=== PATIENT | female | born 1940 | race Caucasian/White ===

== ENCOUNTER 2022-12-02 12:56 | Emergency (ER) | payer OTHER ==
[2022-12-02 13:56] LABS: Absolute Lymphocytes (CBC) 0.6 K/uL (0.7-4.9); Hematocrit 41.6 % (36.0-45.0); Lymphocytes % 13.1 % (15.3-44.8); MCV 90.2 fL (80-100); MPV 8.4 fL (7.6-11.3)
[2022-12-02 14:04] LABS: Protime INR 1.01
[2022-12-02] MEDS ORDERED: Ringers Lactate 1,000 ML IV ONE (14:04)
[2022-12-02 14:14] LABS: Albumin 3.3 g/dL (3.4-5.0); Bilirubin Direct 0.2 mg/dL (0-0.2); Bilirubin Total 0.7 mg/dL (0.2-1.0); Potassium 3.5 mmol/L (3.5-5.1); Protein, Total 6.6 g/dL (6.4-8.2); Troponin High Sensitivity 13.2 pg/mL (<58.9)
--- NOTE | 2022-12-02 14:15 | RAD REPORT ---
EXAM DESCRIPTION: RAD - Chest Single View - 12/02/2022 2:05 pm CLINICAL HISTORY: sob, cough Chest pain. COMPARISON: CHEST SINGLE VIEW dated 09/13/2015; CHEST PA AND LAT 2 VIEW dated 09/12/2015; CHEST SING LE VIEW dated 09/11/2015; CHEST SINGLE VIEW dated 09/04/2015 FINDINGS: Portable technique limits examination quality. Right hemidiaphragm is elevated. Interstitial markings are prominent bilaterally. The heart is normal in size. No displaced fractures. IMPRESSION: Findings would favor a viral bronchitis/ interstitial infection.
--- NOTE | 2022-12-02 14:51 | RAD REPORT ---
EXAM DESCRIPTION: CT - Chest For Pe Angio - 12/02/2022 2:40 pm CLINICAL HISTORY: Chest pain. SOB COMPARISON: CTANGIO CHEST FOR PE dated 09/12/2015 TECHNIQUE: CT angiogram of the pulmonary arteries was performed with MIP. All CT scans are performed using dose optimization technique as appropriate and may include automated exposure control or mA/KV adjustment according to patient size. FINDINGS: Small pulmonary emboli are seen left posterior segmental and subsegmental branches. Aorta opacification is suboptimal for assessment. Mild COPD. No significant pericardial or pleural fluid. No concerning bony finding. IMPRESSION: Small pulmonary emboli are seen posterior left segmental and subsegmental branches. Mild COPD.
--- NOTE | 2022-12-02 14:55 | RAD REPORT ---
EXAM DESCRIPTION: CTAbdomen Pelvis W Contrast - 12/02/2022 2:40 pm CLINICAL HISTORY: Abdominal pain. ABD PAIN COMPARISON: Abdomen Pelvis W Contrast dated 05/22/2020; Abdomen Pelvis W Contrast dated 02/14/2019 ; Abdomen Pelvis W Contrast dated 03/03/2018; Abdomen Pelvis W Contrast dated 03/10/2017 TECHNIQUE: Biphasic CT imaging of the abdomen and pelvis was performed with 100 ml non-ionic IV cont rast. All CT scans are performed using dose optimization technique as appropriate and may include automated exposure control or mA/KV adjustment according to patient size. FINDINGS: The lung bases are mildly emphysematous but clear. Mild fatty liver. Small cyst anterior right lobe liver. The spleen, pancreas, adrenal glands kidneys are within normal limits. Cholelithiasis. Large fat and bowel containing ventral hernia. No bowel obstruction. 4.1 cm infrarenal abdominal aor tic aneurysm. No evidence of significant lymphadenopathy. Mild right rectus sheath fluid is seen terrie uring up to 19 mm in thickness. No suspicious bony findings. IMPRESSION: Large ventral hernia without bowel obstruction. Cholelithiasis. 4.1 cm infrarenal abdominal aortic aneurysm.
[2022-12-02] MEDS ORDERED: CEFTRIAXONE 1000 MG/VIAL ONE (16:02)
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
[2022-12-02 18:04] VITALS: TEMP 98.1
[2022-12-02 18:08] VITALS: BP 157/79; O2SAT 100
== END 2022-12-02 17:41 | disposition home or self-care (01) ==
LOC: ER 12:56
DX: I26.99 Other pulmonary embolism without acute cor pulmonale (principal); R19.7 Diarrhea, unspecified; I10 Essential (primary) hypertension; I48.91 Unspecified atrial fibrillation; Z85.038 Personal history of other malignant neoplasm of large intestine
CPT/HCPCS: 85025; 80048; 36415; 83735; 85610; 80076; 84484; 83880; 71275; 74177; 71045; Q9967; J7120; 93005

== ENCOUNTER 2023-03-29 11:47 | Emergency (ER) | payer OTHER ==
[2023-03-29] MEDS ORDERED: SMZ./TMP. 800/160 MG TABLET ONE (13:25)
[2023-03-29] MEDS ORDERED: HYDROCODONE/APAP 5/325 MG TAB ONE (13:25)
[2023-03-29] MEDS ORDERED: CEPHALEXIN 250 MG CAP ONE (13:25)
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
[2023-03-29 15:11] VITALS: TEMP 98.7; O2SAT 100
[2023-03-29 15:12] VITALS: BP 130/72
== END 2023-03-29 15:06 | disposition home or self-care (01) ==
LOC: ER 11:47
DX: L03.114 Cellulitis of left upper limb (principal); I10 Essential (primary) hypertension; I48.91 Unspecified atrial fibrillation; Z79.01 Long term (current) use of anticoagulants; Z88.1 Allergy status to other antibiotic agents
CPT/HCPCS: 99283

== ENCOUNTER 2024-01-07 19:34 | Emergency (ER) | payer OTHER ==
[2024-01-07] MEDS ORDERED: MORPHINE 4 MG/ML SYR ONE ×3 (20:18→23:41)
[2024-01-07] MEDS ORDERED: ONDANSETRON 4 MG/2 ML VIAL ONE ×2 (20:18→23:41)
[2024-01-07] MEDS ORDERED: NA CHLORIDE 0.9% 500 ML ONE (20:19)
[2024-01-07 20:23] LABS: Absolute Basophils 0.1 K/uL (0-0.5); Absolute Eosinophils 0.1 K/uL (0-0.5); Absolute Lymphocytes (CBC) 1.1 K/uL (0.7-4.9); Absolute Monocytes 0.6 K/uL (0.1-1.3); Basophils % 0.7 % (0-1.3); Eosinophils % 1.1 % (0-4.4); Hematocrit 40.7 % (36.0-45.0); Hemoglobin 14.1 g/dL (12.0-15.0); Lymphocytes % 12.3 % (15.3-44.8); MCH 31.5 pg (27.0-35.0); MCHC 34.6 g/dL (32.0-36.0); MCV 91.3 fL (80-100); MPV 8.5 fL (7.6-11.3); Monocytes % 6.5 % (3.3-12.3); Neutrophils % 79.4 % (41.7-73.7); Nucleated Red Blood Cells % 0.1 % (0-0); Platelets 283 thou/uL (152-406); RBC Red Blood Cell Count 4.46 M/uL (3.86-4.86); Red Cell Distribution Width 13.3 % (12.1-15.2)
[2024-01-07 20:31] LABS: Specific Gravity 1.011 (1.005-1.030); Sqamous Epithelial <5 /HPF (None Seen); Urine Bacteria None Seen /HPF (<20); Urine Bilirubin NEGATIVE (Negative); Urine Blood Negative (Negative); Urine Clarity Clear (Clear); Urine Color Colorless (Yellow); Urine Crystals Unidentified Few /HPF (None Seen); Urine Culture Reflex Order NOT NEEDED; Urine Glucose NEGATIVE (Negative); Urine Ketones NEGATIVE (Negative); Urine Microscopic Reflex YN ORDER UMIC; Urine Mucus Slight /HPF (None Seen); Urine Nitrite NEGATIVE (Negative); Urine Protein NEGATIVE (Negative); Urine RBC <5 /HPF (None Seen); Urine Urobilinogen Normal (Normal); Urine WBC <5 /HPF (<5)
[2024-01-07 20:41] LABS: Albumin 3.7 g/dL (3.4-5.0); Anion Gap 10.6 mEq/L (5.0-15.0); Bilirubin Total 0.7 mg/dL (0.2-1.0); Globulin 3.6 g/dL (2.3-3.5); Potassium 3.6 mEq/L (3.5-5.1); Protein, Total 7.3 g/dL (6.4-8.2)
--- NOTE | 2024-01-07 22:15 | RAD REPORT ---
EXAM DESCRIPTION: CT - Abdomen Pelvis W Contrast - 01/07/2024 9:31 pm CLINICAL HISTORY: ABD PAIN COMPARISON: Abdomen Pelvis W Contrast dated 12/02/2022; Abdomen Pelvis W Contrast dated 05/22/2020; Abdomen Pelvis W Contrast dated 02/14/2019; Abdomen Pelvis W Contrast dated 03/03/2018 TECHNIQUE: Thin cut axial CT imaging of the abdomen and pelvis was performed following intravenous a dministration of 95 mL Isovue 300. Multiplanar reformats were generated and reviewed. All CT scans are performed using dose optimization technique as appropriate and may include automated exposure control or mA/KV adjustment according to patient size. FINDINGS: No suspicious findings in the lung bases. The liver demonstrates a stable anterior right lobe subcapsular 7 mm hypoattenuating focus, possibly a cyst. Adrenal glands, spleen, and pancreas show no suspicious findings. Gallbladder demonstrates nu merous layering small gallstones. Symmetric renal function is seen with no hydronephrosis or suspicious renal mass. Dilated proximal small bowel loops with air-fluid levels. Small lung large bowel enters the wide neck ed ventral hernia sac, including some of the distended small bowel. A small loop of distended small b owel insinuates in the lower anterior abdominal wall right of midline, where previously a pocket of f luid was visualized, anterior to the rectus muscle body and possibly in between a component of the me sh and the transversalis fascia, see axial image 62 series 201. The transition point is at the level of the orifice of that pocket, on axial image 56 and coronal image 28. Nondistended small bowel dista l to this point. Sequelae of distal colectomy with colorectal anastomosis. No free air, free fluid or inflammatory stranding. No hernia, mass or bulky lymphadenopathy. The urinary bladder is without sig nificant finding. Stable right posterior pelvic ovoid 4 cm cystic collection, possibly of adnexal origin. 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 No suspicious bony findings. IMPRESSION: Sequelae of complete bowel obstruction, with focal transition point identified at the or ifice of a pocket of fluid that appears to be situated anterior to the right rectus muscle body and p ossibly and between a component of the hernia repair mesh and the transversalis fascia. Other findings as detailed above. The findings were communicated to Miriam Blas on 01/07/2024 at 22:07 hours.
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
[2024-01-08] MEDS ORDERED: NA CHLORIDE 0.9% 1,000 ML ONE (02:32)
[2024-01-08] MEDS ORDERED: FENTANYL CITR 100 MCG/2 ML ONE (02:32)
[2024-01-08] MEDS ORDERED: LORazepam 2 MG/ML VIAL ONE (03:44)
[2024-01-08] MEDS ORDERED: HYDROMORPHONE HCL 1 MG/ML INJ ONE (04:51)
[2024-01-08 05:39] VITALS: BP 112/72; TEMP 98; O2SAT 99
--- NOTE | 2024-01-08 19:09 | RAD REPORT ---
CLINICAL HISTORY: NG tube placement COMPARISON: None. TECHNIQUE: XR ABDOMEN 1 VIEW (KUB) 01/08/2024 3:04 AM CDT FINDINGS: Bowel gas pattern is nonspecific. There are no abnormal radiopaque foreign bodies or abnor mal calcifications. Osseous structures are grossly unremarkable. NG tube tip is in the stomach. IMPRESSION: NG tube tip in the stomach. Electronically signed by: Clive Crump MD 01/08/2024 03:51 AM CDT Due to temporary technical issues with the PACS/Fluency reporting system, reports are being signed by the in house radiologists without review as a courtesy to insure prompt reporting. The interpreting radiologist is fully responsible for the content of the report.
== END 2024-01-08 05:09 | disposition short-term general hospital (02) ==
LOC: ER 19:34
DX: K56.609 Unspecified intestinal obstruction, unspecified as to partial versus complete obstruction (principal); I48.91 Unspecified atrial fibrillation; I10 Essential (primary) hypertension; Z85.038 Personal history of other malignant neoplasm of large intestine; Z86.711 Personal history of pulmonary embolism; Z79.01 Long term (current) use of anticoagulants; Z79.899 Other long term (current) drug therapy; Z88.0 Allergy status to penicillin
CPT/HCPCS: 36415; 74018; 74177; 80053; 81001; 83690; 85025; 96361; 96374; 96375; 99285; J2405; J7040; Q9967

== ENCOUNTER 2024-02-24 05:02 | Inpatient (IN) | payer OTHER ==
[2024-02-24] MEDS ORDERED: ONDANSETRON 4 MG/2 ML VIAL ONE ×2 (05:28→10:13)
[2024-02-24] MEDS ORDERED: METOCLOPRAMIDE 10 MG/2mL INJ ONE (05:28)
[2024-02-24] MEDS ORDERED: MORPHINE 4 MG/ML SYR ONE (05:29)
[2024-02-24] MEDS ORDERED: NA CHLORIDE 0.9% 1,000 ML ONE (05:29)
[2024-02-24 05:39] LABS: Absolute Basophils 0.1 K/uL (0-0.5); Absolute Lymphocytes (CBC) 0.9 K/uL (0.7-4.9); Absolute Monocytes 0.3 K/uL (0.1-1.3); Absolute Neutrophil 9.6 K/uL (1.8-8.0); Basophils % 0.6 % (0-1.3); Eosinophils % 0.2 % (0-4.4); Hematocrit 43.8 % (36.0-45.0); Lymphocytes % 8.3 % (15.3-44.8); MCH 31.4 pg (27.0-35.0); MCHC 34.3 g/dL (32.0-36.0); MCV 91.4 fL (80-100); MPV 8.8 fL (7.6-11.3); Monocytes % 3.1 % (3.3-12.3); Neutrophils % 87.8 % (41.7-73.7); Nucleated Red Blood Cells % 0.1 % (0-0); Platelets 303 thou/uL (152-406); Red Cell Distribution Width 12.8 % (12.1-15.2)
[2024-02-24 05:49] LABS: PT Prothrombin Time 12.6 SECONDS (9.5-12.5); Protime INR 1.15
[2024-02-24 06:01] LABS: Albumin 3.9 g/dL (3.4-5.0); Anion Gap 10.3 mEq/L (5.0-15.0); Bilirubin Direct 0.1 mg/dL (0-0.2); Bilirubin Indirect, Calculated 0.5 mg/dL (0.2-0.8); Bilirubin Total 0.6 mg/dL (0.2-1.0); Globulin 3.8 g/dL (2.3-3.5); Potassium 3.3 mEq/L (3.5-5.1); Protein, Total 7.7 g/dL (6.4-8.2); Troponin High Sensitivity 7.1 pg/mL (<58.9)
[2024-02-24 07:58] LABS: Sqamous Epithelial None Seen /HPF (None Seen); Urine Bacteria None Seen /HPF (<20); Urine Bilirubin NEGATIVE (Negative); Urine Blood Negative (Negative); Urine Clarity Clear (Clear); Urine Color Colorless (Yellow); Urine Culture Reflex Order NOT NEEDED; Urine Glucose TRACE (Negative); Urine Ketones NEGATIVE (Negative); Urine Microscopic Reflex YN ORDER UMIC; Urine Nitrite NEGATIVE (Negative); Urine Protein NEGATIVE (Negative); Urine RBC <5 /HPF (None Seen); Urine Urobilinogen Normal (Normal); Urine WBC <5 /HPF (<5); Urine pH 6.5 (5.0-7.0)
[2024-02-24] MEDS ORDERED: FENTANYL CITR 100 MCG/2 ML ONE (08:06)
--- NOTE | 2024-02-24 08:07 | RAD REPORT ---
EXAM DESCRIPTION: CT - Chest Abdomen Pelvis W Cont - 02/24/2024 6:41 am CLINICAL HISTORY: Chest and abdomen pain. CHEST PAIN COMPARISON: <Comparisons> TECHNIQUE: Approximately 100 mL nonionic IV contrast was administered to the patient. All CT scans are performed using dose optimization technique as appropriate and may include automated exposure control or mA/KV adjustment according to patient size. FINDINGS: The lungs are mildly emphysematous but clear.No pleural or pericardial effusion.No intrath oracic adenopathy. Gallbladder appears distended and contains multiple stones. The liver contains small benign cyst. No intra or extrahepatic biliary tree dilatation. Small amount of fluid is seen surrounding the spleen. Pancreas, both adrenal glands kidneys are within normal limi ts. Benign right renal cyst 3.8 cm infrarenal abdominal aortic aneurysm. Large ventral hernia is present containing fat, fluid se veral loops of small bowel and colon. Fluid as well as small bowel loop is seen along the right anter ior abdominal wall fascia. Several dilated small bowel loops are seen in the left abdomen. No free in traperitoneal air is seen. No pathologic lymphadenopathy in the abdomen or pelvis. Moderate lumbar degenerative changes. IMPRESSION: Mildly dilated small bowel loops are present in the lower abdomen left aspect of the abd omen likely partial mechanical small-bowel obstruction.This is favored to be caused by complex ventra l hernia with related trapped fluid small bowel loop is seen in the right paramidline anterior abdomi nal wall fascia (image 151/[id number]). Gallbladder distension is noted with numerous gallstones present.
[2024-02-24 08:17] LABS: Blood Morphology Comment NOT SEEN (NOT SEEN); Platelet Estimate ADEQ; White Blood Cell Scan OK (OK)
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
[2024-02-24] MEDS: Ringers Lactate 1,000 ML IV SCH (10:58)
[2024-02-24] MEDS ORDERED: ONDANSETRON 4 MG/2 ML VIAL IV PRN (10:58)
--- NOTE | 2024-02-24 11:52 | RAD REPORT ---
EXAM DESCRIPTION: RAD - Abdomen 1 View (KUB) - 02/24/2024 11:41 am CLINICAL HISTORY: Placement of NGT/OGT. Post Insertion. Pain COMPARISON: Abdomen 1 View (KUB) dated 01/08/2024; Chest Abdomen Pelvis W Cont dated 02/24/2024 FINDINGS: Tip of the enteric tube is in the stomach. Several mildly prominent left lower quadrant sm all bowel loops noted.
[2024-02-24] MEDS: KCL 20 MEQ/100 mL IVPB 20 MEQ/100 ML BAG IV SCH ×2 (12:04→18:00)
[2024-02-24 12:29] VITALS: BMI 31.9
[2024-02-24] MEDS ORDERED: METOCLOPRAMIDE 10 MG/2mL INJ IV PRN (12:30)
[2024-02-24] MEDS: MORPHINE 4 MG/ML SYR IV PRN (12:45)
[2024-02-24] MEDS: KETOROLAC 30 MG/ML INJ IV PRN (18:27)
[2024-02-24] MEDS ORDERED: AMIODARONE HCL 450 MG in D5W 241 ML IV SCH (19:00)
[2024-02-24] MEDS: PIPER TAZO 3.375 GM in NA CHLORIDE 0.9% 100 ML IV ONE (19:34)
[2024-02-25] MEDS: PIPER TAZO 3.375 GM in NA CHLORIDE 0.9% 100 ML IV SCH (00:28)
[2024-02-25 10:02] LABS: Anion Gap 10.1 mEq/L (5.0-15.0); Magnesium 2.1 mg/dL (1.6-2.4); Potassium 4.1 mEq/L (3.5-5.1)
[2024-02-25 10:03] LABS: Absolute Lymphocytes (CBC) 1.5 K/uL (0.7-4.9); Absolute Neutrophil 11.9 K/uL (1.8-8.0); Basophils % 0.2 % (0-1.3); Eosinophils % 0.1 % (0-4.4); Hematocrit 36.2 % (36.0-45.0); Hemoglobin 12.1 g/dL (12.0-15.0); Lymphocytes % 10.2 % (15.3-44.8); MCH 30.6 pg (27.0-35.0); MCHC 33.3 g/dL (32.0-36.0); MCV 91.7 fL (80-100); MPV 9.1 fL (7.6-11.3); Monocytes % 6.9 % (3.3-12.3); Neutrophils % 82.6 % (41.7-73.7); Platelets 249 thou/uL (152-406); RBC Red Blood Cell Count 3.95 M/uL (3.86-4.86)
[2024-02-25] MEDS: FENTANYL CITR 100 MCG/2 ML IV PRN (11:51)
[2024-02-25] MEDS: MORPHINE 4 MG/ML SYR IV ONE ×2 (13:50→16:12)
--- NOTE | 2024-02-25 14:41 | EKG ---
Test Date: 2024-02-24 Test Time: 05:30:56 [employer] Psychologist: ANNA MEASUREMENT RESULTS: Intervals: Rate: 88 MN: 174 QRSD: 94 QT: 384 QTc: 464 [place]: P: 66 MN: 174 QRS: 93 T: 65 INTERPRETIVE STATEMENTS: Sinus rhythm with premature atrial complexes Rightward axis Borderline ECG Compared to ECG 12/02/2022 14:05:39 Atrial premature complex(es) now present Right-axis deviation now present Sinus bradycardia no longer present Myocardial infarct finding no longer present Electronically Signed On 02-25-24 14:38:13 CDT by Singh Crawford
[2024-02-25] MEDS: MORPHINE 2 MG/ML SYR IV ONE (15:50)
[2024-02-25] MEDS: ENOXAPARIN 40 MG/0.4 ML SQ SCH (17:00)
--- NOTE | 2024-02-25 19:18 | P.PN ---
Subjective Date of Service: 02/25/24 Chief Complaint: Small bowel obstruction admitted with a small bowel obstruction, NG tube to low intermittent, surgery for KUB ordered this FINDINGS: Tip of the enteric tube is in the stomach. Several mildly prominent left lower quadrant small bowel loops noted. Febrile yesterday, Zosyn added - Physical Exam General: Alert, In no apparent distress, Oriented x3, Obese HEENT: Atraumatic, Normocephalic Neck: Supple, JVD not distended Respiratory: Clear to auscultation bilaterally, Normal air movement Cardiovascular: No edema, Normal pulses Capillary refill: <2 Seconds Gastrointestinal: Hypoactive, Other (Obese, large abdominal hernia), Tenderness Musculoskeletal: No swelling, No contractures Integumentary: No breakdown, No significant lesion Neurological: Normal speech, Normal strength at 5/5 x4 extr <Violeta Faulkner - Last Filed: 02/25/24 12:02> Date of Service: 02/25/24 <Jason King - Last Filed: 02/25/24 22:22> Review of Systems 10-point ROS is otherwise unremarkable <Violeta Faulkner - Last Filed: 02/25/24 12:02> Physical Examination - Vital Signs Temperature: 98.1 F Blood Pressure: 112/57 Pulse: 82 Respirations: 15 Pulse Ox (%): 91 <Violeta Faulkner - Last Filed: 02/25/24 12:02> Assessment And Plan - Plan Assessment and Plan Assessment plan Other and unspecified ventral hernia with obstruction, without gangrene intractable abdominal pain, nausea vomiting surgery Dr. Ortiz to consult, n.p.o., NG tube to low intermittent IV fluids, as needed antiemetics, Reglan, as needed analgesia associated nausea vomiting worse over the last 24 hours. Reports history of abdominal hernia sees Dr. Ortiz. Vital signs stable BP 145 / 90; Pulse 93; Resp 18; Temp 97.8(O); Pulse Ox 99% on R/A; Weight 92.99 kg; cm10 EKG height 5 ft. 8 in. ; Pain 10/10; EKG 88 beats/min. Rhythm is regular, Normal Sinus Rhythm. Right axis deviation [place] interval is normal. QRS interval is normal. QT interval is normal. No Q waves. T waves are Normal. No ST changes noted. Clinical impression: No evidence of ischemia., Treated with IV fentanyl, morphine, normal saline, Reglan, Zosyn, and emergency room prior to admission. Leukocytosis unknown source Zosyn and UA negative for acute cystitis AAA abdominal hernia History of colon cancer History of colon rupture Chronic anticoagulation on Eliquis Hypertensive disorder Pulmonary Embolism Resume appropriate home meds Previously seen Dr Ursula Jones Full code DVT eliquis, lovenox Diet n.p.o. Disposition Home uses wheelchair, rolling walker, cane as needed Discharge Plan: Home Time Spent Managing PTS Care (In Minutes): 35 <Violeta Faulkner - Last Filed: 02/25/24 12:02> Date of Service: 02/25/24 Patient was seen and examined. Events of the last 24 hours have been noted. Spoke with with [facility] regarding patient's clinical picture after evaluating and examining the patient independently. continue with NG tube to intermittent suction. Continue with IV hydration. I performed a substantial part of the MDM during this patient's care today. I personally made or approved the documented management plan and acknowledge its risk of complications. I agree with the findings and documentation provided in the ERIK's notes. <Jason King - Last Filed: 02/25/24 22:22>
--- NOTE | 2024-02-25 22:30 | CON ---
Date of Consultation: 02/24/2024 History Of Present Illness: Mrs. Yates is an 83-year-old patient who comes to us with abdominal distension and small bowel obstruction. She is well known by the medical service. Apparently, the p atient comes on and off with bowel obstruction that resolved on its own. She has an extensive surger y. Everything started with apparently a surgery about 7 to 8 years ago and she said Dr. Salvador went there to take a look at some hernias and then after that found person to have a colon tumor that req uired resection and colostomy. Then after that, the patient was sent to a colorectal surgeon, who di d a laparotomy to do a node excision of that area. Then after that, she has a large hernia and she w as sent for abdominal wall reconstruction that as per the patient did not go as planned and developed dehiscence and the other hernia when they develop, it could not be fixed. She had the option to fix it. She was tired of surgeries. She is saying only she likely as since then and that is 5 to 7 years. On and off she has bowel obstruction. She knows when it is coming and then come to [facility]. She was eating good in the last few days. She just decided to go a little bit more on the edge and started eating hot dogs, more what she called a junky food and then developed this. She knows weeks for diet. She has good spirit. She is not in any distress at this moment. Abdomen mildly distended. She denies any dysuria, hematuria, hematochezia, melena. Denies any recen t traveling out of the country. Denies any family member sick at home. Past Medical History: Includes AAA; abdominal hernias; atrial fibrillation; colon cancer; colon rupt ure; hypertension; pulmonary embolism; small bowel obstructions, intermittent. Past Surgical History: As above. Once again, multiple intraabdominal laparotomies, reconstruction o f the abdomen with dehiscence and a hernia that could not be repaired as this is that what she claime d. Allergies: TO AMPICILLIN. Social History: She does not smoke. She does not drink alcohol. Review of Systems: No shortness of breath. No chest pain. No fever. She had some nausea last night, but today feels b davin with no nausea anymore. Physical Examination: General: The patient is awake and alert. HEENT: Pupils are equal and reactive. Anicteric. Neck: Supple. Chest: Clear. Abdomen: Soft and depressible. No guarding. No rebound. No peritoneal signs. Mildly distended. There is a large incisional ventral hernia. Partially reducible. Extremities: Good capillary refill. Imaging Data: CAT scan of the abdomen and pelvis interpreted by dilated small bowel loops present in the lower abdomen, less aspect of the abdomen, likely partial mechanical small bowel obstruction, complex hernia, right paramedial, anterior abdominal wall fascia. We will also mention to her that she has some gallstones, although no inflammation at this moment. Laboratory Data: Blood work shows a WBC count of 11, hemoglobin of 15, sodium is 133, BUN is 18. Assessment: This is an 83-year-old patient with extensive abdominal surgery. Apparently, [facility] and then after that during that process found to have colon cancer, did partia l resection, colostomy, then reversal of colostomy by Dr. Cabral in [place], initially was Dr. Salvador. Then, after that the patient developed some hernias, sent to [place] for abdominal wall reconstruct ion. She said after that there was a large surgery done, but then she said everything broke and she has a large hernia. The doctor explained to her the risk of fixing the hernia. When she heard the r isk and the doctor discussed that, they decided just to leave it alone, but then she has been sufferi ng since then with this large hernia that apparently has not fixed. On and off bowel obstruction, re solved on its own. She does not want any surgical intervention at this moment. We are going to put an NG tube. Continue a bowel rest. We advised about the diet. I advised also going back to the [facility] and see what alternative we have to fix the hernia in a tertiary center since just 1 day take her to an emergent surgery that the outcomes may not be the best we can expect. She understood that. She has no peritonitis at this moment. EVAN/RADHA Voice ID: [id number] Report ID: [id number]
[2024-02-26 08:12] LABS: Absolute Eosinophils 0.1 K/uL (0-0.5); Absolute Lymphocytes (CBC) 1.1 K/uL (0.7-4.9); Absolute Monocytes 0.8 K/uL (0.1-1.3); Absolute Neutrophil 7.2 K/uL (1.8-8.0); Basophils % 0.3 % (0-1.3); Eosinophils % 1.1 % (0-4.4); Hematocrit 35.2 % (36.0-45.0); Hemoglobin 12.4 g/dL (12.0-15.0); Lymphocytes % 12.4 % (15.3-44.8); MCH 31.9 pg (27.0-35.0); MCHC 35.2 g/dL (32.0-36.0); MCV 90.8 fL (80-100); MPV 8.6 fL (7.6-11.3); Monocytes % 8.9 % (3.3-12.3); Neutrophils % 77.3 % (41.7-73.7); Platelets 261 thou/uL (152-406); RBC Red Blood Cell Count 3.88 M/uL (3.86-4.86); Red Cell Distribution Width 13.1 % (12.1-15.2)
[2024-02-26 08:25] LABS: Anion Gap 10.1 mEq/L (5.0-15.0); Potassium 3.1 mEq/L (3.5-5.1)
--- NOTE | 2024-02-26 09:55 | P.PN ---
Subjective Date of Service: 02/27/24 Chief Complaint: Small bowel obstruction admitted with a small bowel obstruction, NG tube to low intermittent, surgery for KUB ordered this FINDINGS: Tip of the enteric tube is in the stomach. Several mildly prominent left lower quadrant small bowel loops noted. Febrile yesterday, Zosyn added Coffee-ground emesis and NG container will DC heparin, H&H stable Trend H&H, repeat KUB this morning to eval small bowel (improved) start cl liq diet today PT to eval to get patient out of bed, plan to advance diet today clear liquid - Physical Exam General: Alert, In no apparent distress, Oriented x3, Obese HEENT: Atraumatic, Normocephalic Neck: Supple, JVD not distended Respiratory: Clear to auscultation bilaterally, Normal air movement Cardiovascular: No edema, Normal pulses Capillary refill: <2 Seconds Gastrointestinal: Hypoactive, Other (Obese, large abdominal hernia), Tenderness Musculoskeletal: No swelling, No contractures Integumentary: No breakdown, No significant lesion Neurological: Normal speech, Normal strength at 5/5 x4 extr <Violeta Faulkner - Last Filed: 02/27/24 08:12> Date of Service: 02/26/24 <Jason King - Last Filed: 02/28/24 00:18> Review of Systems PER HPI <Violeta Faulkner - Last Filed: 02/27/24 08:12> Physical Examination - Vital Signs Temperature: 98.2 F Blood Pressure: 161/81 Pulse: 94 Respirations: 18 Pulse Ox (%): 95 <Violeta Faulkner - Last Filed: 02/27/24 08:12> Assessment And Plan - Plan Assessment and Plan Assessment plan Other and unspecified ventral hernia with obstruction, without gangrene improved intractable abdominal pain, nausea vomiting surgery Dr. Ortiz to consult, n.p.o., NG tube to low intermittent IV fluids, as needed antiemetics, Reglan, as needed analgesia associated nausea vomiting worse over the last 24 hours. Reports history of abdominal hernia sees Dr. Ortiz. Vital signs stable BP 145 / 90; Pulse 93; Resp 18; Temp 97.8(O); Pulse Ox 99% on R/A; Weight 92.99 kg; cm10 EKG height 5 ft. 8 in. ; Pain 10/10; EKG 88 beats/min. Rhythm is regular, Normal Sinus Rhythm. Right axis deviation [place] interval is normal. QRS interval is normal. QT interval is normal. No Q waves. T waves are Normal. No ST changes noted. Clinical impression: No evidence of ischemia., Treated with IV fentanyl, morphine, normal saline, Reglan, Zosyn, and emergency room prior to admission. KUB improved start cl liq diet today Coffee-ground emesis And NG container Will DC Lovenox Microcytic anemia Trend H&H 15.0->12.1, 12.4 Leukocytosis unknown source Zosyn and UA negative for acute cystitis AAA abdominal hernia History of colon cancer History of colon rupture Chronic anticoagulation on Eliquis Hypertensive disorder Pulmonary Embolism Resume appropriate home meds Previously seen Dr Ursula Jones Full code DVT eliquis, lovenox Diet n.p.o. Disposition Home uses wheelchair, rolling walker, cane as needed Discharge Plan: Home Discharge Plan: Home - Code Status/Comfort Care Code Status: Full Code Critical Care: No Time Spent Managing PTS Care (In Minutes): 35 <Violeta Faulkner - Last Filed: 02/27/24 08:12> Date of Service: 02/26/24 Patient was seen and examined. Events of the last 24 hours have been noted. Spoke with with [facility] regarding patient's clinical picture after evaluating and examining the patient independently. continue with NG tube to intermittent suction. Continue with IV hydration. I performed a substantial part of the MDM during this patient's care today. I personally made or approved the documented management plan and acknowledge its risk of complications. I agree with the findings and documentation provided in the ERIK's notes. <Jason King - Last Filed: 02/28/24 00:18>
--- NOTE | 2024-02-26 10:45 | RAD REPORT ---
EXAM DESCRIPTION: RAD - Abdomen 1 View (KUB) - 02/26/2024 10:27 am CLINICAL HISTORY: EVAL SBO COMPARISON: Abdomen 1 View (KUB) dated 02/24/2024; Abdomen 1 View (KUB) dated 01/08/2024; Chest Abdomen Pelvis W Cont dated 02/24/2024 FINDINGS: The borderline dilated small bowel loops in left lower quadrant are no longer identified. Some colonic gas is noted. No acute osseous abnormality.Visualized lungs are unremarkable.No abnormal calcifications. NG tube overlies the stomach. IMPRESSION: Improved. The borderline dilated left lower quadrant small bowel loops are no longer parmjit ntified. The bowel gas pattern is nonobstructive.
[2024-02-26] MEDS: METOPROLOL TARTRATE 5 MG/5 ML INJ IV STA ×2 (12:51→16:50)
[2024-02-26] MEDS ORDERED: KCL 20 MEQ/100 mL IVPB 20 MEQ/100 ML BAG IV SCH (13:00)
[2024-02-26] MEDS: KCL 20 MEQ/100 mL IVPB 20 MEQ/100 ML BAG IV SCH (13:00)
--- NOTE | 2024-02-26 14:00 | PN ---
Date of Progress Note: 02/26/2024 Diagnosis: Small bowel obstruction. Subjective: The patient is feeling better. Passing flatus. Abdomen is soft and depressible. She h ad some cramps in the abdomen then, but there is no guarding or rebound. NG tube is minimal. Objective: Vital Signs: Afebrile. Vital signs stable. Chest: Clear. Abdomen: Soft and depressible. Nice and flat. No guarding or rebound. No peritoneal signs. The p atsarthak had this gigantic large hernia, which they had been trying to be fixed in the past in [place], but they were unable to fix that. She has been living like that for the last 7 years. At this mome nt, there is no peritonitis. Extremities: Good capillary refill. Blood Work: The white count came back normal. Plan: We are going to clamp the NG tube. She wants to try sips of liquids. She has been through th is before and what we are going to do, just we are going to trying to do so, but keep the NG tube in place in case she gets nauseous, we can reconnect that again. I agree with that plan. She is very k nowledgeable and also she is trying to get out of bed and move around. She is trying to avoid any lamas rgery. EVAN/RADHA Voice ID: [id number] Report ID: [id number]
[2024-02-26] MEDS: NA CHLORIDE 0.9% 1,000 ML ONE (16:15)
[2024-02-26] MEDS: KETOROLAC 30 MG/ML INJ IV PRN (20:51)
[2024-02-26] MEDS: LORazepam 2 MG/ML VIAL IV PRN (20:51)
[2024-02-27 07:41] LABS: Absolute Eosinophils 0.2 K/uL (0-0.5); Absolute Lymphocytes (CBC) 1.1 K/uL (0.7-4.9); Absolute Monocytes 0.7 K/uL (0.1-1.3); Basophils % 0.6 % (0-1.3); Eosinophils % 3.4 % (0-4.4); Hematocrit 38.5 % (36.0-45.0); Hemoglobin 13.1 g/dL (12.0-15.0); Lymphocytes % 15.4 % (15.3-44.8); MCH 30.9 pg (27.0-35.0); MCHC 33.9 g/dL (32.0-36.0); MPV 7.9 fL (7.6-11.3); Monocytes % 10.4 % (3.3-12.3); Neutrophils % 70.2 % (41.7-73.7); Platelets 289 thou/uL (152-406); RBC Red Blood Cell Count 4.23 M/uL (3.86-4.86); Red Cell Distribution Width 12.6 % (12.1-15.2)
[2024-02-27 08:03] LABS: Anion Gap 5.2 mEq/L (5.0-15.0); Magnesium 2.3 mg/dL (1.6-2.4); Phosphorus 2.8 mg/dL (2.5-4.9); Potassium 3.2 mEq/L (3.5-5.1)
--- NOTE | 2024-02-27 08:14 | P.PN ---
Subjective Date of Service: 02/27/24 Chief Complaint: Small bowel obstruction admitted with a small bowel obstruction, NG tube to low intermittent, surgery for KUB ordered this FINDINGS: Tip of the enteric tube is in the stomach. Several mildly prominent left lower quadrant small bowel loops noted. Febrile yesterday, Zosyn added Coffee-ground emesis and NG container will DC heparin, H&H stable Trend H&H, repeat KUB this morning to eval small bowel (improved) start cl liq diet today PT to eval to get patient out of bed, plan to advance diet today clear liquid - Physical Exam General: Alert, In no apparent distress, Oriented x3, Obese HEENT: Atraumatic, Normocephalic Neck: Supple, JVD not distended Respiratory: Clear to auscultation bilaterally, Normal air movement Cardiovascular: No edema, Normal pulses Capillary refill: <2 Seconds Gastrointestinal: Hypoactive, Other (Obese, large abdominal hernia), Tenderness Musculoskeletal: No swelling, No contractures Integumentary: No breakdown, No significant lesion Neurological: Normal speech, Normal strength at 5/5 x4 extr <Violeta Faulkner - Last Filed: 02/27/24 08:14> Date of Service: 02/27/24 <Jason King - Last Filed: 02/28/24 00:19> Review of Systems Per HPI <Violeta Faulkner - Last Filed: 02/27/24 08:14> Physical Examination - Vital Signs Temperature: 98.2 F Blood Pressure: 161/81 Pulse: 94 Respirations: 18 Pulse Ox (%): 95 <Violeta Faulkner - Last Filed: 02/27/24 08:14> Assessment And Plan - Plan Assessment and Plan Assessment plan Other and unspecified ventral hernia with obstruction, without gangrene improved intractable abdominal pain, nausea vomiting surgery Dr. Ortiz to consult, n.p.o., NG tube to low intermittent IV fluids, as needed antiemetics, Reglan, as needed analgesia associated nausea vomiting worse over the last 24 hours. Reports history of abdominal hernia sees Dr. Ortiz. Vital signs stable BP 145 / 90; Pulse 93; Resp 18; Temp 97.8(O); Pulse Ox 99% on R/A; Weight 92.99 kg; cm10 EKG height 5 ft. 8 in. ; Pain 10/10; EKG 88 beats/min. Rhythm is regular, Normal Sinus Rhythm. Right axis deviation [place] interval is normal. QRS interval is normal. QT interval is normal. No Q waves. T waves are Normal. No ST changes noted. Clinical impression: No evidence of ischemia., Treated with IV fentanyl, morphine, normal saline, Reglan, Zosyn, and emergency room prior to admission. KUB improved start cl liq diet today Coffee-ground emesis And NG container Will DC Lovenox Microcytic anemia Trend H&H 15.0->12.1, 12.4 Leukocytosis unknown source Zosyn and UA negative for acute cystitis AAA abdominal hernia History of colon cancer History of colon rupture Chronic anticoagulation on Eliquis Hypertensive disorder Pulmonary Embolism Resume appropriate home meds Previously seen Dr Cabral, Dr Vergara Full code DVT eliquis, lovenox Diet n.p.o. Disposition Home uses wheelchair, rolling walker, cane as needed Discharge Plan: Home - Code Status/Comfort Care Code Status: Full Code Critical Care: No Time Spent Managing PTS Care (In Minutes): 35 <Violeta Faulkner - Last Filed: 02/27/24 08:14>
[2024-02-27] MEDS ORDERED: METOPROLOL TARTRATE 5 MG/5 ML INJ IV PRN (08:15)
[2024-02-27] MEDS: METOPROLOL TARTRATE 5 MG/5 ML INJ IV STA (08:22)
[2024-02-27] MEDS: NA CHLORIDE 0.9% 1,000 ML IV SCH (08:44)
[2024-02-27] MEDS: METOPROLOL TAR 25 MG TAB PO SCH (09:40)
[2024-02-27] MEDS: AMIODARONE HCL 200 MG TAB PO SCH (09:40)
[2024-02-27] MEDS: KCL 20 MEQ/100 mL IVPB 20 MEQ/100 ML BAG IV SCH (09:41)
--- NOTE | 2024-02-27 10:29 | RAD REPORT ---
EXAM DESCRIPTION: RAD - Abdomen W Erect - 02/27/2024 10:17 am CLINICAL HISTORY: Abdominal pain FINDINGS: Nasogastric tube within the stomach near the junction of fundus and body Free air is not seen beneath diaphragm Normal bowel gas pattern
[2024-02-27] MEDS: LACTULOSE 20 GM/30 ML UCUP PO SCH (11:57)
[2024-02-28 03:31] LABS: Absolute Basophils 0.1 K/uL (0-0.5); Absolute Eosinophils 0.4 K/uL (0-0.5); Absolute Lymphocytes (CBC) 1.3 K/uL (0.7-4.9); Absolute Monocytes 0.7 K/uL (0.1-1.3); Absolute Neutrophil 4.6 K/uL (1.8-8.0); Eosinophils % 5.6 % (0-4.4); Hematocrit 36.2 % (36.0-45.0); Hemoglobin 12.6 g/dL (12.0-15.0); Lymphocytes % 18.4 % (15.3-44.8); MCH 31.7 pg (27.0-35.0); MCV 90.7 fL (80-100); MPV 7.8 fL (7.6-11.3); Monocytes % 10.2 % (3.3-12.3); Neutrophils % 64.8 % (41.7-73.7); Nucleated Red Blood Cells % 0.1 % (0-0); Platelets 290 thou/uL (152-406); RBC Red Blood Cell Count 3.99 M/uL (3.86-4.86); Red Cell Distribution Width 12.9 % (12.1-15.2)
[2024-02-28 03:40] LABS: Anion Gap 8.8 mEq/L (5.0-15.0); Potassium 3.8 mEq/L (3.5-5.1)
[2024-02-28] MEDS: POTASSIUM CL SA 10 MEQ TAB PO ONE (09:00)
[2024-02-28] MEDS: POTASSIUM 25 MEQ EFFERV TAB PO ONE (10:55)
--- NOTE | 2024-02-28 13:53 | P.PN ---
Subjective Date of Service: 02/28/24 Chief Complaint: Small bowel obstruction Pt is resting comfortably in bed with NG tube in place. There is no output in the Wall suction container. Waiting for recommendation from Gen surgeon. No other complaints Review of Systems General: Unremarkable Eyes: Unremarkable ENT: Unremarkable Respiratory: Unremarkable Cardiovascular: Unremarkable Gastrointestinal: Unremarkable Genitourinary: Unremarkable Musculoskeletal: Unremarkable Integumentary: Unremarkable Neurological: Unremarkable Lymphatics: Unremarkable Physical Examination - Vital Signs Temperature: 98.1 F Blood Pressure: 131/84 Pulse: 96 Respirations: 16 Pulse Ox (%): 95 - Physical Exam General: Alert, In no apparent distress, Oriented x3, Obese HEENT: Atraumatic, Normocephalic, PERRLA, Other (NG tube in place) Neck: Supple, 2+ carotid pulse no bruit Respiratory: Clear to auscultation bilaterally, Normal air movement Cardiovascular: No edema, Normal pulses, Regular rate/rhythm, Normal S1 S2 Capillary refill: <2 Seconds Gastrointestinal: Normal bowel sounds, Soft and benign, Non-distended Musculoskeletal: No clubbing, No swelling Integumentary: No rashes, No breakdown, No significant lesion Neurological: Normal speech, Normal strength at 5/5 x4 extr, Normal tone, Sensation intact, Cranial nerves 3-12 intact Lymphatics: No axilla or inguinal lymphadenopathy Assessment And Plan - Plan Unspecified ventral hernia with obstruction, without gangrene: improved. NG tube is in place. Will remove the NG tube when cleared by the Gen surgeon. There is no output in the wall suction container. Intractable abdominal pain, nausea vomiting: improved. Will continue prn antiemetic. Coffee-ground emesis/microcytic anemia: Monitor H/H. hgb is 12.6. Leukocytosis unknown source. UA is negative for UTI. Will continue empiric zosyn. AAA / Abdominal hernia / History of colon cancer: Continue to follow up with Dr Cabral and Dr Vergara Hypertensive disorder: Continue home med Pulmonary Embolism: Hold Eliquis due to coffee ground emesis. GI ppx: protonix DVT ppx: Eliquis Code: Full Dispo: Pending hospital course.
[2024-02-28 23:29] VITALS: O2SAT 95
[2024-02-29 03:51] LABS: Absolute Basophils 0.1 K/uL (0-0.5); Absolute Eosinophils 0.4 K/uL (0-0.5); Absolute Lymphocytes (CBC) 1.7 K/uL (0.7-4.9); Absolute Monocytes 0.7 K/uL (0.1-1.3); Absolute Neutrophil 3.4 K/uL (1.8-8.0); Basophils % 0.9 % (0-1.3); Eosinophils % 6.9 % (0-4.4); Hematocrit 34.7 % (36.0-45.0); Lymphocytes % 27.6 % (15.3-44.8); MCH 31.3 pg (27.0-35.0); MCHC 34.6 g/dL (32.0-36.0); MCV 90.4 fL (80-100); MPV 8.1 fL (7.6-11.3); Monocytes % 10.4 % (3.3-12.3); Neutrophils % 54.2 % (41.7-73.7); Platelets 277 thou/uL (152-406); RBC Red Blood Cell Count 3.84 M/uL (3.86-4.86); Red Cell Distribution Width 12.5 % (12.1-15.2)
[2024-02-29 04:13] LABS: Anion Gap 7.6 mEq/L (5.0-15.0); Magnesium 2.1 mg/dL (1.6-2.4); Potassium 3.6 mEq/L (3.5-5.1)
[2024-02-29] MEDS: POTASSIUM 25 MEQ EFFERV TAB PO ONE (08:55)
--- NOTE | 2024-02-29 11:13 | P.PN ---
Subjective Date of Service: 02/29/24 Chief Complaint: Small bowel obstruction Pt is resting comfortably in bed. NG tube was removed on 01/29/24. Pt is tolerating CLD. Will advance to pureed diet. Will dc if able to tolerate pureed diet. No other complaints Review of Systems General: Unremarkable Eyes: Unremarkable ENT: Unremarkable Respiratory: Unremarkable Cardiovascular: Unremarkable Gastrointestinal: Unremarkable Genitourinary: Unremarkable Musculoskeletal: Unremarkable Integumentary: Unremarkable Neurological: Unremarkable Lymphatics: Unremarkable Physical Examination - Vital Signs Temperature: 98.1 F Blood Pressure: 141/64 Pulse: 68 Respirations: 17 Pulse Ox (%): 95 - Physical Exam General: Alert, In no apparent distress, Oriented x3 HEENT: Atraumatic, Normocephalic, PERRLA Neck: Supple, 2+ carotid pulse no bruit Respiratory: Clear to auscultation bilaterally, Normal air movement Cardiovascular: No edema, Normal pulses, Regular rate/rhythm, Normal S1 S2 Capillary refill: <2 Seconds Gastrointestinal: Normal bowel sounds, Soft and benign, Non-distended, Other (ventral hernia) Musculoskeletal: No clubbing, No swelling Integumentary: No rashes, No breakdown, No significant lesion Neurological: Normal speech, Normal strength at 5/5 x4 extr, Normal tone, Sensation intact, Cranial nerves 3-12 intact Lymphatics: No axilla or inguinal lymphadenopathy Assessment And Plan - Plan Unspecified ventral hernia with obstruction, without gangrene: improved. NG tube is out. Gen surgeon started CLD. Pt is tolerating CLD. Will advance to pureed diet. Will dc if she tolerates pureed diet. Intractable abdominal pain, nausea vomiting: improved. Will continue prn antiemetic. Coffee-ground emesis/microcytic anemia: Monitor H/H. hgb is 12.0. Leukocytosis unknown source. UA is negative for UTI. Will continue empiric zosyn. AAA / Abdominal hernia / History of colon cancer: Continue to follow up with Dr Cabral and Dr Vergara Hypertensive disorder: Continue home med Pulmonary Embolism: Hold Eliquis due to coffee ground emesis. GI ppx: protonix DVT ppx: Eliquis Code: Full Dispo: Pending hospital course. Will dc once able to tolerate pureed diet
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
[2024-02-29 16:00] VITALS: BP 143/72; TEMP 99.2
--- NOTE | 2024-02-29 16:47 | PN ---
Date of Progress Note: 02/29/2024 Reason For Service: Two problems, the patient has history of recurrent small bowel obstruction. The patient also has ventral hernia that was attempted at [facility] for reconstruction, but it did not go as planned and so she has a very large hernia in abdomen chronically for the last 7 years with on and off bowel obstructions. She decided at this time to change her diet. Ate some what she called junk food because she was celebrating with her and after that developed into bowel obstruction, i s improving. She is passing gas, having bowel movement. Abdomen soft and depressible. Nontender, n ondistended. No nausea, no vomiting. No fever. She is tolerating diet so far. Objective: Chest: Clear. Abdomen: Benign. No guarding or rebound. Extremities: Good capillary refill. Plan: Just advance diet to pureed diet, then she is going to come back to our office where we discus sed ways how to once again take a look at the hernia to see if we can repair electively be fore the bowel obstruction happens again and she may be having bowel obstruction in different places, diet is imperative to be watched and make sure that she visits her dentist and make sure she can ju[place] w properly. She feels great. If she tolerates diet, she wants to go home with the condition she has to come to my office to discuss how we can minimize these episodes in the future. EVAN/RADHA Voice ID: [id number] Report ID: [id number]
== END 2024-02-29 17:05 | disposition home or self-care (01) | DRG 395 ==
LOC: ER 05:02 → ERHOLD 09:29 → 4TH 10:00
PROVIDERS: ADMIT Hospitalist; ATTEND Hospitalist
PROC: 0DH67UZ Insertion of Feeding Device into Stomach, Via Natural or Artificial Opening (ICD-10-PCS; principal; 2024-02-24)
DX: K43.6 Other and unspecified ventral hernia with obstruction, without gangrene (principal); I10 Essential (primary) hypertension; I48.91 Unspecified atrial fibrillation; K21.9 Gastro-esophageal reflux disease without esophagitis; I71.40 Abdominal aortic aneurysm, without rupture, unspecified; D50.9 Iron deficiency anemia, unspecified; D72.829 Elevated white blood cell count, unspecified; Z98.51 Tubal ligation status; Z88.7 Allergy status to serum and vaccine; Z88.1 Allergy status to other antibiotic agents; Z88.2 Allergy status to sulfonamides; Z79.01 Long term (current) use of anticoagulants; Z86.711 Personal history of pulmonary embolism; Z79.899 Other long term (current) drug therapy; Z85.038 Personal history of other malignant neoplasm of large intestine
CPT/HCPCS: 36415; 71260; 74018; 74019; 74177; 80048; 80076; 81001; 83690; 83735; 83880; 84100; 84132; 84484; 85025; 85610; 93005; 96361; 96374; 96375; 97116; 97161; 97530; 99285; J1650; J2405; J2543; J2765; J3010; J3480; J7030; J7120; Q9967

== ENCOUNTER 2024-03-21 04:32 | Inpatient (IN) | payer OTHER ==
[2024-03-21] MEDS ORDERED: ONDANSETRON 4 MG/2 ML VIAL ONE ×3 (04:53→07:24)
[2024-03-21] MEDS ORDERED: MORPHINE 4 MG/ML SYR ONE ×2 (04:54→06:25)
[2024-03-21] MEDS ORDERED: NA CHLORIDE 0.9% 1,000 ML ONE ×2 (04:54→07:32)
[2024-03-21 04:55] LABS: Absolute Basophils 0.1 K/uL (0-0.5); Absolute Eosinophils 0.1 K/uL (0-0.5); Absolute Lymphocytes (CBC) 1.2 K/uL (0.7-4.9); Absolute Monocytes 0.4 K/uL (0.1-1.3); Absolute Neutrophil 6.7 K/uL (1.8-8.0); Basophils % 0.8 % (0-1.3); Eosinophils % 1.4 % (0-4.4); Hematocrit 41.6 % (36.0-45.0); Hemoglobin 13.8 g/dL (12.0-15.0); Lymphocytes % 13.7 % (15.3-44.8); MCH 30.7 pg (27.0-35.0); MCHC 33.2 g/dL (32.0-36.0); MCV 92.7 fL (80-100); Monocytes % 5.3 % (3.3-12.3); Neutrophils % 78.8 % (41.7-73.7); Platelets 273 thou/uL (152-406); RBC Red Blood Cell Count 4.49 M/uL (3.86-4.86); Red Cell Distribution Width 13.5 % (12.1-15.2)
[2024-03-21 05:25] LABS: Albumin 3.9 g/dL (3.4-5.0); Albumin/Globulin Ratio 1.1 (1.1-1.8); Anion Gap 11.7 mEq/L (5.0-15.0); Bilirubin Total 0.6 mg/dL (0.2-1.0); Globulin 3.6 g/dL (2.3-3.5); Potassium 3.7 mEq/L (3.5-5.1); Protein, Total 7.5 g/dL (6.4-8.2)
[2024-03-21 06:33] LABS: Specific Gravity 1.016 (1.005-1.030); Sqamous Epithelial None Seen /HPF (None Seen); Urine Bacteria None Seen /HPF (<20); Urine Bilirubin NEGATIVE (Negative); Urine Blood Negative (Negative); Urine Clarity Clear (Clear); Urine Color Colorless (Yellow); Urine Culture Reflex Order NOT NEEDED; Urine Glucose TRACE (Negative); Urine Ketones NEGATIVE (Negative); Urine Micro Reflex YN NO BILL MICROSCOPIC; Urine Mucus Slight /HPF (None Seen); Urine Nitrite NEGATIVE (Negative); Urine Protein NEGATIVE (Negative); Urine RBC None Seen /HPF (None Seen); Urine Urobilinogen Normal (Normal); Urine WBC <5 /HPF (<5); Urine pH 6.5 (5.0-7.0)
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
[2024-03-21] MEDS ORDERED: LIDOCAINE VISCOUS 2% 10ML ORAL SOLN ONE (07:24)
[2024-03-21] MEDS ORDERED: HYDROMORPHONE HCL 0.5 MG/0.5 ML INJ ONE (07:32)
[2024-03-21] MEDS ORDERED: SODIUM CHLORIDE 0.9% 10ML INJ IV PRN (07:37)
[2024-03-21] MEDS ORDERED: MORPHINE 2 MG/ML SYR IV PRN (07:37)
[2024-03-21] MEDS: ONDANSETRON 4 MG/2 ML VIAL IV PRN (07:45)
[2024-03-21] MEDS: HYDROMORPHONE HCL 0.5 MG/0.5 ML INJ IV PRN (07:45)
[2024-03-21] MEDS: NA CHLORIDE 0.9% 1,000 ML IV SCH (08:29)
[2024-03-21] MEDS ORDERED: NA CHLORIDE 0.9% 100 ML ONE (08:43)
[2024-03-21] MEDS ORDERED: PANTOPRAZOLE 40 MG INJ ONE (08:43)
[2024-03-21] MEDS ORDERED: METOCLOPRAMIDE 10 MG/2mL INJ ONE (08:43)
[2024-03-21] MEDS: METOCLOPRAMIDE 10 MG/2mL INJ IV SCH (09:00)
[2024-03-21] MEDS: PANTOPRAZOLE 40 MG INJ IVP SCH (09:00)
--- NOTE | 2024-03-21 09:05 | RAD REPORT ---
EXAM DESCRIPTION: RAD - Abdomen 1 View (KUB) - 03/21/2024 8:35 am CLINICAL HISTORY: s/p NG tube placement. COMPARISON: Abdomen 1 View (KUB) dated 02/26/2024; Abdomen 1 View (KUB) dated 02/24/2024; Abdomen 1 View (KUB) dated 01/08/2024 TECHNIQUE: Single AP view of the abdomen. FINDINGS: Enteric tube tip projects at the peripheral fundus of the stomach. Nonobstructive bowel ga s pattern within the included abdomen. No air-fluid levels, free air, or pneumatosis. No suspicious c alcifications. No significant bony abnormality. IMPRESSION: Satisfactory positioning of the enteric tube.
[2024-03-21] MEDS ORDERED: MORPHINE 2 MG/ML SYR ONE (09:49)
[2024-03-21] MEDS: MORPHINE 4 MG/ML SYR IV PRN (10:00)
--- NOTE | 2024-03-21 12:40 | RAD REPORT ---
EXAM DESCRIPTION: CT - Abdomen Pelvis W Contrast - 03/21/2024 6:34 am CLINICAL HISTORY: ABD PAIN COMPARISON: None Available. TECHNIQUE: CT of the abdomen and pelvis performed following IV administration of iodinated contras t. This exam was performed according to our departmental dose-optimization program, which includes au tomated exposure control, adjustment of the mA and/or kV according to patient size and/or use of iter ative reconstruction technique. FINDINGS: Lung Bases: The visualized lung bases are clear. Bones: No acute osseous abnormality identified. Abdomen: Liver: Hepatomegaly. Gallbladder: Prior cholecystectomy. Spleen, Pancreas, and Adrenal Glands: The spleen, pancreas, and adrenal glands are unremarkable. Kidneys: No hydronephrosis or obstructing calculus. Vasculature: The aorta and IVC have normal caliber and position. The portal vein is patent. The pro ximal visceral and renal arteries are patent. Stomach: Small hiatal hernia. Other: No free intraperitoneal air. No free fluid or lymphadenopathy. Pelvis: Bladder: Urinary bladder is unremarkable. Bowel: No dilated loops of large or small bowel. Wall thickening of the proximal small bowel. Appendix: Normal appendix. Pelvis: Uterus is not enlarged. IMPRESSION: 1. Wall thickening of the proximal small bowel. These findings could be seen with nons pecific enteritis. 2. Hepatomegaly. 3. Small hiatal hernia. Electronically signed by: Abhilash Borja DO 03/21/2024 04:27 AM CDT 4ZDM Due to temporary technical issues with the PACS/Fluency reporting system, reports are being signed by the in house radiologists without review as a courtesy to insure prompt reporting. The interpreting radiologist is fully responsible for the content of the report
[2024-03-21 13:06] VITALS: BMI 30.4
[2024-03-21] MEDS ORDERED: PHENOL 1.4% ORAL SPRAY 180ML MM PRN (20:57)
[2024-03-21 22:21] VITALS: O2SAT 93
[2024-03-21] MEDS: FUROSEMIDE 40 MG/4 ML VIAL IV ONE (23:40)
[2024-03-22 06:34] LABS: Absolute Eosinophils 0.2 K/uL (0-0.5); Absolute Lymphocytes (CBC) 1.1 K/uL (0.7-4.9); Absolute Monocytes 0.5 K/uL (0.1-1.3); Basophils % 0.7 % (0-1.3); Hematocrit 33.3 % (36.0-45.0); Hemoglobin 11.8 g/dL (12.0-15.0); Lymphocytes % 18.7 % (15.3-44.8); MCH 32.4 pg (27.0-35.0); MCHC 35.4 g/dL (32.0-36.0); MCV 91.7 fL (80-100); MPV 8.7 fL (7.6-11.3); Monocytes % 8.8 % (3.3-12.3); Neutrophils % 67.8 % (41.7-73.7); Nucleated Red Blood Cells % 0.1 % (0-0); Platelets 223 thou/uL (152-406); RBC Red Blood Cell Count 3.63 M/uL (3.86-4.86); Red Cell Distribution Width 13.6 % (12.1-15.2)
[2024-03-22 06:51] LABS: Anion Gap 7.2 mEq/L (5.0-15.0); Magnesium 1.9 mg/dL (1.6-2.4); Potassium 3.2 mEq/L (3.5-5.1)
--- NOTE | 2024-03-22 07:35 | RAD REPORT ---
EXAM DESCRIPTION: RAD - Abdomen 1 View (KUB) - 03/22/2024 5:22 am CLINICAL HISTORY: eval bowel obstruction Pain COMPARISON: Abdomen 1 View (KUB) dated 03/21/2024; Abdomen 1 View (KUB) dated 02/26/2024; Abdomen 1 Vie w (KUB) dated 02/24/2024; Abdomen 1 View (KUB) dated 01/08/2024 FINDINGS: The enteric tube tip is in the stomach. The bowel gas pattern is nonobstructive. No eviden ce of free air.
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
[2024-03-22] MEDS: KCL 20 MEQ/100 mL IVPB 20 MEQ/100 ML BAG IV SCH ×2 (09:37→13:59)
[2024-03-22] MEDS: NA CHLORIDE 0.9% 500 ML ONE (14:00)
--- NOTE | 2024-03-22 16:08 | P.PN ---
Subjective Date of Service: 03/22/24 Chief Complaint: Bowel obstruction Subjective: Improving (Patient is passing gas and has no further abdominal pain.) Physical Examination - Vital Signs Temperature: 98.9 F Blood Pressure: 125/58 Pulse: 80 Respirations: 16 Pulse Ox (%): 93 - Physical Exam General: Alert, In no apparent distress, Cooperative Respiratory: Clear to auscultation bilaterally, Normal air movement Cardiovascular: Regular rate/rhythm Gastrointestinal: Soft and benign, Non-distended, No ascites, No tenderness, No masses, No rebound, No guarding, Other (Complex ventral abdominal hernia not reducible however benign examination completed today) Neurological: Normal speech Assessment And Plan - Current Problems (Diagnosis) (1) Abdominal pain Onset Date: 09/02/15 Current Visit: No Status: Acute Plan: -6-hour clamp trial for NG tube if patient tolerates without nausea vomiting pain distention and continues to pass gas can remove NG tube and start clear liquid diets this evening plan to advance tomorrow. -Continue medical management per primary team. -Ambulate with assist -SCDs.
--- NOTE | 2024-03-22 20:36 | CON ---
Date of Consultation: 03/21/2024 Brief History Of Present Illness: The patient is an 83-year-old female with past medical history of abdominal aortic aneurysm, abdominal hernia, atrial fibrillation, colon cancer with colonic rupture, status post resection, colostomy creation, colostomy takedown, multiple other complex abdominal surge sun for hernias, which were fixed primarily and which she believes to be biologic mesh in the past, who has had episodes of small bowel obstruction, treated before with nonoperative management, who now presents with recurrent small bowel obstruction. She has had worsening hernia after her last operat ion, was told she was not going to have surgery due to her other medical comorbidities and as such, h er hernia continues to enlarge, is worsening, and is associated with increased pain and enlargement o jerry time. She noted that she had a bowel movement yesterday just prior to the onset of some of her a bdominal pain, nausea, vomiting, and as such, she continues to pass gas at the time of her admission. She has no more nausea, vomiting after placement of NG tube. She has improved abdominal pain with medication and she states she feels somewhat better after being admitted to the hospital. Past Medical History: As described above includes GERD, gastritis, hypertension, chronic back pain, chest wall pain, cholelithiasis, colon cancer, status post resection, atrial fibrillation, pulmonary embolus, bowel obstructions in the past, hypertension. Past Surgical History: Includes previous , tubal ligation, tonsillectomy, adenoid surgery, foot surgery, sigmoid colon cancer resection, status post ileostomy creation, ileostomy takedown, her augustine repair in the past with recurrence shortly thereafter. Family History: Significant for pancreatic cancer in her father and mother had heart disease, hypert ension. Allergies: SHE IS ALLERGIC TO AMPICILLIN, SULFA, AND TETANUS TOXOID. Home Medications: Include Avapro, Lopressor, Norvasc, Eliquis, Prilosec, Ultram. Review of Systems: A 10 point review of systems other than HPI denies. Physical Examination: Vital Signs: Her blood pressure was 131/63, pulse 73, respiratory rate 16, temperature 97.4, SpO2 92 % on room air. General: She is awake, alert, and oriented. Psychiatric: Appropriate, conversive. HEENT: Normocephalic. Sclerae icteric. Mucous membranes are moist. Oropharynx clear. Neck: Supple without JVD. Chest: Normal expansion and excursion. Cardiovascular: Regular rate and rhythm. Pulmonary: Clear to auscultation bilaterally. Abdomen: Soft with only mild global tenderness to palpation. No rebound. No guarding. No focal pe ritonitis. She has a large ventral complex hernia with palpable small bowel within. This is not red ucible due to its size. However, attempts to reduce it elicit only the most minimal amount of pain o n significant attempted reduction. Extremities: No clubbing, cyanosis, or edema. Skin: Warm and dry. Laboratory Data: White blood cell count of 8.5, hemoglobin 13.8, hematocrit 41.6, platelet count was 273, lymphocytes 78%. Her sodium 141, potassium 3.7, chloride 109, carbon dioxide 24, BUN 19, creat inine 1.25, glucose 152. Calcium 10.0, AST 17, ALT 22, alkaline phosphatase is 80, lipase 43. UA es sentially negative with the exception of glucose in her urine. She had imaging performed, which incl uded CT of abdomen and pelvis, officially read as wall thickening in the proximal small bowel, findin gs could be seen with nonspecific enteritis, hepatomegaly and small hiatal hernia. Assessment And Plan: This is an 83-year-old female who comes in with a possible small bowel obstruct ion versus enteritis. 1.IV fluid hydration. 2.Antibiotic coverage. 3.Serial abdominal exams. 4.Medical management. 5.I explained the risks, benefits, and alternatives of nonoperative management versus operative amena gement. Will attempt nonoperative management initially. However, if operative management is require d, we will proceed with exploratory laparotomy, possible bowel resection, and indicated procedures. The patient displayed understanding of above stated plan and agreed to proceed as indicated. LEIA/RADHA Voice ID: [id number] Report ID: [id number]
[2024-03-23 06:09] LABS: Absolute Eosinophils 0.3 K/uL (0-0.5); Absolute Lymphocytes (CBC) 1.3 K/uL (0.7-4.9); Absolute Monocytes 0.6 K/uL (0.1-1.3); Absolute Neutrophil 3.1 K/uL (1.8-8.0); Basophils % 0.7 % (0-1.3); Eosinophils % 5.9 % (0-4.4); Hematocrit 33.6 % (36.0-45.0); Hemoglobin 11.5 g/dL (12.0-15.0); Lymphocytes % 24.2 % (15.3-44.8); MCH 31.8 pg (27.0-35.0); MCHC 34.2 g/dL (32.0-36.0); MCV 92.9 fL (80-100); Monocytes % 10.5 % (3.3-12.3); Neutrophils % 58.7 % (41.7-73.7); Platelets 203 thou/uL (152-406); RBC Red Blood Cell Count 3.62 M/uL (3.86-4.86); Red Cell Distribution Width 13.2 % (12.1-15.2)
[2024-03-23 06:22] LABS: Anion Gap 7.5 mEq/L (5.0-15.0); Magnesium 1.8 mg/dL (1.6-2.4); Potassium 3.5 mEq/L (3.5-5.1)
[2024-03-23] MEDS: POTASSIUM CL SA 10 MEQ TAB PO ONE (07:50)
[2024-03-23] MEDS: MAGNESIUM SULFATE 1 gm IVPB 1 GM/100 ML BAG IV ONE (07:50)
[2024-03-23] MEDS: ACETAMINOPHEN 325 MG TABLET PO PRN (09:49)
[2024-03-23 21:25] VITALS: BP 113/54; TEMP 97.9
--- NOTE | 2024-03-23 21:26 | P.DS ---
Admission Date: 03/21/24 Discharge Date: 03/23/24 Disposition: ROUTINE DISCHARGE Discharge Condition: GOOD Reason for Admission: Bowel obstruction Brief History of Present Illness: 83-year-old female with a past medical history AAA; abdominal hernia; Atrial fibrillation; colon cancer; Colon rupture; Colon rupture; Hypertensive disorder; Pulmonary Embolism; SMALL BOWEL OBSTRUCTION; presents to the emergency room with abdominal pain. She reports history of small bowel obstruction. She reports pain and nausea that started yesterday evening. She reports associated vomiting, poor p.o. intake, no reported fever, chest pain, shortness of breath, edema, dizziness. Plan to admit for bowel obstruction, generalized abdominal pain,Other and unspecified ventral hernia with obstruction, without gangrene ER evaluation BP 147 / 81; Pulse 86; Resp 17; Temp 98.4; Pulse Ox 98% ; Weight 90.72 kg; Height 5 ft. 8 in. ; Pain 10/10; : CT abdomen pelvis shows a complete small bowel obstruction with transition point within the large ventral hernia. Other chronic findings noted as well. NG tube ordered in the emergency room. Dr. Faust, general surgery who agrees to consult laboratory evaluation creatinine 1.25, BUN 19, estimated GFR is 43, abnormal kidney function likely secondary to nausea vomiting, CBC left shift 78.8 otherwise unremarkable General: Alert, Oriented x3, Mild distress HEENT: Atraumatic, Normocephalic Neck: 2+ carotid pulse no bruit, JVD not distended Respiratory: Clear to auscultation bilaterally, Normal air movement Cardiovascular: Normal pulses, Regular rate/rhythm Capillary refill: <2 Seconds Gastrointestinal: Other (Large abdominal hernia,), Tenderness (Generalized abdominal tenderness, no rebound tenderness) Musculoskeletal: No clubbing, No swelling Integumentary: No rashes, No breakdown Neurological: Normal speech, Normal strength at 5/5 x4 extr Hospital Course: Admitted with bowel obstruction, abdominal pain, Resolved with NGT, conservative treatment. She will need to follow up with surgery after discharge. History of large abdominal hernia, multiple bowel obstructions, abdominal surgeries. Follow up with Surgery after discharge Continue home medicines as previously prescribed GOAL: Clear understanding of disease process INSTRUCTIONS: Physician Discharge Instructions: -Follow-up with PCP in 1 to 2 weeks -Please call Dr. King at [phone] if any questions regarding hospital stay -Please call nursing station at [phone] if any nursing or medication questions -Return to the emergency room if symptoms worsen Diet: ADA, low sodium Activity: Fall precautions Vital Signs/Physical Exam: Temp Pulse Resp BP Pulse Ox 97.9 F 70 16 113/54 L 91 03/23/24 21:22 03/23/24 21:22 03/23/24 21:22 03/23/24 21:22 03/23/24 21:22 Laboratory Data at Discharge: WBC 5.30 thou/uL (4.3-10.9) 03/23/24 05:34 Hgb 11.5 g/dL (12.0-15.0) L 03/23/24 05:34 Hct 33.6 % (36.0-45.0) L 03/23/24 05:34 Plt Count 203 thou/uL (152-406) 03/23/24 05:34 Sodium 138 mEq/L (136-145) 03/23/24 05:34 Potassium 3.5 mEq/L (3.5-5.1) 03/23/24 05:34 BUN 7 mg/dL (7-18) 03/23/24 05:34 Creatinine 0.82 mg/dL (0.55-1.02) 03/23/24 05:34 Glucose 83 mg/dL (74-106) 03/23/24 05:34 Magnesium 1.8 mg/dL (1.6-2.4) 03/23/24 05:34 Total Bilirubin 0.6 mg/dL (0.2-1.0) 03/21/24 04:46 AST 17 U/L (15-37) 03/21/24 04:46 ALT 22 U/L (13-56) 03/21/24 04:46 Alkaline Phosphatase 80 U/L (45-117) 03/21/24 04:46 Lipase 43 U/L (13-75) 03/21/24 04:46 Home Medications: Irbesartan [Avapro] 1 tab PO BEDTIME 09/01/15 Amlodipine [Norvasc*] 1 tab PO DAILY 02/27/24 Apixaban [Eliquis] 1 tab PO BID 02/27/24 Tramadol HCl [Ultram] 1 tab PO QID PRN 02/27/24 Metoprolol Tartrate [Lopressor*] 25 mg PO TID 03/21/24 Levofloxacin [Levaquin] 500 mg PO DAILY #5 tab 03/23/24 Metoclopramide HCl [Reglan] 5 mg PO AC #30 tab 03/23/24 Metronidazole 500 mg PO Q12H #10 tab 03/23/24 New Medications: Levofloxacin [Levaquin] 500 mg PO DAILY #5 tab Metronidazole 500 mg PO Q12H #10 tab Metoclopramide HCl [Reglan] 5 mg PO AC #30 tab Physician Discharge Instructions: -DC IV and DC home -Follow-up with PCP in 1 to 2 weeks -Follow-up with Surgery, Dr. Faust, in 1 to 2 weeks -Please call Dr. King at [phone] if any questions regarding hospital stay -Please call nursing station at [phone] if any nursing or medication questions -Return to the emergency room if symptoms worsen Diet: soft; Activity: Fall precautions Followup: Keyana CORONEL,Lj Wright DO [Primary Care Provider] - Alvin Faust MD [ACTIVE - CAN ADMIT] - Time spent managing pt's care (in minutes): 55
== END 2024-03-23 17:53 | disposition home or self-care (01) | DRG 395 ==
LOC: ER 04:32 → ERHOLD 06:56 → 4TH 14:11
PROVIDERS: ADMIT Hospitalist; ATTEND Hospitalist
PROC: 0DH67UZ Insertion of Feeding Device into Stomach, Via Natural or Artificial Opening (ICD-10-PCS; principal; 2024-03-21)
DX: K43.6 Other and unspecified ventral hernia with obstruction, without gangrene (principal); I48.91 Unspecified atrial fibrillation; I10 Essential (primary) hypertension; G89.29 Other chronic pain; M54.9 Dorsalgia, unspecified; K21.9 Gastro-esophageal reflux disease without esophagitis; I71.40 Abdominal aortic aneurysm, without rupture, unspecified; Z93.2 Ileostomy status; Z88.2 Allergy status to sulfonamides; Z88.1 Allergy status to other antibiotic agents; Z79.01 Long term (current) use of anticoagulants; Z90.49 Acquired absence of other specified parts of digestive tract; Z28.310 Unvaccinated for COVID-19; Z86.711 Personal history of pulmonary embolism; Z79.899 Other long term (current) drug therapy; Z85.038 Personal history of other malignant neoplasm of large intestine
CPT/HCPCS: 36415; 74018; 74177; 80048; 80053; 81001; 83690; 83735; 85025; 96361; 96374; 96375; 99285; C9113; J1170; J2270; J2405; J2765; J3475; J3480; J7030; J7040; Q9967

== ENCOUNTER 2024-07-18 01:08 | Inpatient (IN) | payer OTHER ==
[2024-07-18] MEDS ORDERED: HYDROMORPHONE HCL 0.5 MG/0.5 ML INJ ONE ×2 (01:42→03:35)
[2024-07-18] MEDS ORDERED: ONDANSETRON 4 MG/2 ML VIAL ONE (02:23)
[2024-07-18 02:35] LABS: Absolute Monocytes 0.5 K/uL (0.1-1.3); Absolute Neutrophil 8.4 K/uL (1.8-8.0); Basophils % 0.4 % (0-1.3); Eosinophils % 0.5 % (0-4.4); Hemoglobin 14.8 g/dL (12.0-15.0); Lymphocytes % 10.1 % (15.3-44.8); MPV 9.2 fL (7.6-11.3); Monocytes % 4.7 % (3.3-12.3); Neutrophils % 84.3 % (41.7-73.7); Platelets 265 thou/uL (152-406); RBC Red Blood Cell Count 4.78 M/uL (3.86-4.86); Red Cell Distribution Width 13.7 % (12.1-15.2)
[2024-07-18 02:36] LABS: PT Prothrombin Time 13.5 SECONDS (9.4-12.5); Protime INR 1.21
[2024-07-18 03:04] LABS: Albumin 3.9 g/dL (3.4-5.0); Albumin/Globulin Ratio 1.1 (1.1-1.8); Anion Gap 10.8 mEq/L (5.0-15.0); Bilirubin Direct 0.2 mg/dL (0-0.2); Bilirubin Indirect, Calculated 0.4 mg/dL (0.2-0.8); Bilirubin Total 0.6 mg/dL (0.2-1.0); Globulin 3.5 g/dL (2.3-3.5); Magnesium 2.1 mg/dL (1.6-2.4); Potassium 3.8 mEq/L (3.5-5.1); Protein, Total 7.4 g/dL (6.4-8.2); Troponin High Sensitivity 6.5 pg/mL (<58.9)
[2024-07-18] MEDS ORDERED: PROMETHAZINE INJ 25 MG/ML AMP ONE (03:36)
--- NOTE | 2024-07-18 04:52 | RAD REPORT ---
EXAMINATION: CT ABDOMEN PELVIS WITH IV CONTRAST INDICATION: Female, 83 years old, ABD PAIN COMPARISON(S): 03/21/2024 (report only available at the time of dictation), 01/07/2024 TECHNIQUE: CT acquisition of the abdomen and pelvis following the administration of IV contrast. Karlos nal and sagittal reformatted images provided. This exam was performed according to departmental dose-optimization program which includes automated exposure control, adjustment of the mA and/or kV a ccording to patient size, and/or use of iterative reconstruction technique. FINDINGS: SUPPORTIVE DEVICES: None. LOWER CHEST: Mild basilar scarring/atelectasis. Unremarkable imaged heart. ABDOMEN AND PELVIS: Liver: Diffuse hypoenhancement relative to the spleen, with unchanged subcentimeter hypodensities in the right lobe and left lobe calcification. Gallbladder and bile ducts: Multiple layering stones within the distended gallbladder. No evidence of wall thickening or ductal dilation. Pancreas: Normal. Spleen: Multiple parenchymal calcifications. Adrenal glands: Normal. Kidneys and ureters: Striated left nephrogram. Unchanged right renal cyst. Unremarkable ureters. Bladder: Normal. Reproductive organs: Right ovarian cyst measures 3.7 cm, previously 4 cm. Otherwise unremarkable. GI tract/peritoneum/abdominal wall: Small hiatal hernia. Similar mild wall prominence of the stomach and duodenum. Distention of proximal to mid small bowel loops with multiple air-fluid levels, including within a complex ventral hernia with small bowel loops extending superficial to mesh materi al. Transition point of the exiting small bowel loop near the medial mesh margin (axial image 50/105, coronal image 56/139). Similar ascites within the hernia sac. The more distal small bowel and large bowel are decompressed. An uncomplicated loop of mid transverse colon also enters the large hernia sac superior to the small bowel. The appendix is normal. Vessels: Severe atherosclerosis with infrarenal 3.8 cm aortic aneurysm. Lymph nodes: No evident adenopathy. MUSCULOSKELETAL: No acute osseous abnormality. Degenerative change of the spine and pelvis. IMPRESSION: 1. Recurrent small bowel obstruction related to a large complex ventral abdominal hernia with trans ition point identified above. Enteric decompression recommended; consider surgical consultation. 2. Uncomplicated appearance of mid transverse colon loop also within the hernia sac. 3. Slight interval decrease of the right ovarian cyst. 4. Unchanged infrarenal abdominal aortic aneurysm, see prior report recommendation. 5. Cholelithiasis. Additional chronic and incidental findings above. Electronically signed by: Paul Dunn MD 07/18/2024 04:47 AM CDT RP Due to temporary technical issues with the PACS/Reclog reporting system, reports are being ralph d by the in-house radiologist without review as a courtesy to ensure prompt reporting the interpreting radiologist is fully responsible for the content of the report. Transcribed Date/Time: 07/18/2024 4:52 AM
[2024-07-18] MEDS ORDERED: HYDROMORPHONE HCL 1 MG/ML INJ ONE (05:19)
[2024-07-18] MEDS ORDERED: LIDOCAINE VISCOUS 2% 10ML ORAL SOLN ONE (05:20)
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
[2024-07-18] MEDS ORDERED: ACETAMINOPHEN 650MG/RECT SUPP PR PRN (05:47)
[2024-07-18] MEDS ORDERED: SODIUM CHLORIDE 0.9% 10ML INJ IV PRN (06:54)
--- NOTE | 2024-07-18 08:23 | RAD REPORT ---
EXAM: XR of the abdomen HISTORY: Abdominal pain [facility] MAIN Placement of NGT/OGT. Post Insertion. Pls call Floor to confirm if patient is ready. COMPARISON: 03/22/2024 FINDINGS: XR of the abdomen shows a nonspecific, nonobstructive bowel gas pattern. Enteric tube is co iled in the stomach. No suspicious calcifications are seen. Mild linear opacities in the left base likely atelectasis. Moderate degenerative dextroscoliosis of the thoracic spine. IMPRESSION: Enteric tube is coiled in the stomach.
--- NOTE | 2024-07-18 10:24 | EKG ---
Test Date: 2024-07-18 Test Time: 01:44:46 [place] [employer] Operator: RV MEASUREMENT RESULTS: Intervals: Rate: 70 DE: 182 QRSD: 98 QT: 424 QTc: 457 [place]: P: 67 DE: 182 QRS: 90 T: 62 INTERPRETIVE STATEMENTS: Normal sinus rhythm Normal ECG Compared to ECG 02/24/2024 05:30:56 Atrial premature complex(es) no longer present Right-axis deviation no longer present Electronically Signed On 07-18-24 10:23:25 CDT by Giuseppe Hunter
[2024-07-18] MEDS: METRONIDAZOLE 500mg IVPB 500 MG/100 ML BAG IV SCH (10:44)
[2024-07-18] MEDS: PANTOPRAZOLE 40 MG INJ IVP SCH (10:44)
[2024-07-18] MEDS: NA CHLORIDE 0.9% 1,000 ML IV SCH (10:45)
[2024-07-18] MEDS: CIPROFLOXACIN 400mg IV 400 MG/200 ML BAG IV SCH (10:45)
[2024-07-18] MEDS: MORPHINE 2 MG/ML SYR IV PRN (11:04)
--- NOTE | 2024-07-18 13:11 | P.HP ---
Certification for Inpatient Patient admitted to: Inpatient With expected LOS: >2 Midnights Patient will require the following post-hospital care: None Practitioner: I am a practitioner with admitting privileges, knowledge of patient current condition, hospital course, and medical plan of care. Services: Services provided to patient in accordance with Admission requirements found in Title 42 Section 412.3 of the Code of Federal Regulations Patient History Date of Service: 07/18/24 Reason for admission: SBO History of Present Illness: 83-year-old female with history of atrial fibrillation on chronic anticoagulation, pulmonary embolism, multiple bowel obstructions with known large complex ventral hernia presents emergency department chief complaint of abdominal pain, nausea/vomiting. She reports her symptoms similar to previous small bowel obstruction she has had, she had seen her general surgeon Dr. Faust a little over a week ago and they discussed options for possible surgery versus more conservative measures. At that time they had chosen not to move forward with surgery. Patient was evaluated in the emergency department her labs are significant for a white blood cell count of 10 creatinine 1.07 GFR [address] abdomen pelvis with IV contrast was performed which showed recurrent small bowel obstruction related to a large complex ventral abdominal hernia. Case was discussed with patient's general surgeryDr. Faust who will consult, NGT was placed in the emergency department. Patient was noted to have some maroon/bloody output from her NG tube while in the ED. she will be admitted for further evaluation and management of recurrent small bowel obstruction. Allergies ampicillin Allergy (Verified 09/01/15 14:20) Bleeding gums SULFA (SULFONAMIDES) Allergy (Uncoded 09/01/15 14:20) Rash TETANUS TOXOID Allergy (Uncoded 09/01/15 14:20) Rash Home Medications: Irbesartan [Avapro] 1 tab PO BEDTIME 09/01/15 Amlodipine [Norvasc*] 1 tab PO DAILY 02/27/24 Apixaban [Eliquis] 1 tab PO BID 02/27/24 Tramadol HCl [Ultram] 1 tab PO QID PRN 02/27/24 Metoprolol Tartrate [Lopressor*] 25 mg PO TID 03/21/24 Levofloxacin [Levaquin] 500 mg PO DAILY #5 tab 03/23/24 Metoclopramide HCl [Reglan] 5 mg PO AC #30 tab 03/23/24 Metronidazole 500 mg PO Q12H #10 tab 03/23/24 - Past Medical/Surgical History Has patient received pneumonia vaccine in the past: No Diabetic: No -: hip pain -: gerd -: gastritis -: htn -: back, neck pain, neck sprain, bk sprain -: chest wall pain -: abdominal injury -: cholelithiasis -: colon cancer -: Atrial fibrillation -: pulmonary embolism -: Previous -: Tubal ligation -: tonillectomy -: adnoid sx -: ft sx -: sigmoid resection with colostomy - Family History Father -: Cancer Notes: panceatic cancer Mother -: Heart disease, Hypertension - Social History Alcohol use: Yes CD- Drugs: No Caffeine use: Yes Place of Residence: Home Review of Systems 10-point ROS is otherwise unremarkable Gastrointestinal: Nausea, Vomiting, Abdominal Pain Physical Examination - Vital Signs Temperature: 97.7 F Blood Pressure: 165/92 Pulse: 82 Respirations: 18 Pulse Ox (%): 93 - Physical Exam General: Alert, In no apparent distress, Oriented x3 HEENT: Atraumatic, PERRLA, EOMI Neck: Supple, 2+ carotid pulse no bruit, No LAD, Without JVD or thyroid abnormality Respiratory: Clear to auscultation bilaterally, Normal air movement Cardiovascular: Regular rate/rhythm, Normal S1 S2 Gastrointestinal: Hypoactive, Distended, Tenderness Musculoskeletal: No tenderness Integumentary: No rashes Neurological: Normal speech, Normal strength at 5/5 x4 extr, Normal tone - Studies Laboratory Data (last 24 hrs) 07/18/24 07/18/24 07/18/24 02:19 02:19 02:11 WBC 10.00 Hgb 14.8 Hct 45.0 Plt Count 265 PT 13.5 H INR 1.21 Sodium 137 Potassium 3.8 BUN 22 H Creatinine 1.07 H Glucose 138 H Magnesium 2.1 Total Bilirubin 0.6 AST 16 ALT 22 Alkaline Phosphatase 86 Assessment and Plan - Plan Assessment: Recurrent small bowel obstruction secondary to large complex ventral hernia Suspected mild upper GI bleed Atrial fibrillation on chronic anticoagulation History of pulmonary embolism anticoagulation Hypertension Plan: Recurrent small bowel obstruction secondary to large complex ventral hernia Suspected mild upper GI bleed Patient's general surgeonDr. Faust consulted NGT inserted in ED, continue on LIWS Small amount of maroon blood present in drainage from NGT began after vomiting episode-had a few episodes of vomiting without blood prior Continue Protonix drip Repeat H&H this afternoon Continue empiric antibiotics Atrial fibrillation on chronic anticoagulation History of pulmonary embolism anticoagulation As long as there is not significant bleeding, large drops in H&H will continue therapeutic Lovenox Continue home medications when tolerating p.o., hold Eliquis for now Hypertension GERD Continue home medications when tolerating p.o., IV PPI for now DVT PPX: Therapeutic Lovenox Code status: Full Discharge Plan: Home Plan to discharge in: Greater than 2 days - Advance Directives Does patient have a Living Will: No Does patient have a Durable POA for Healthcare: Yes - Code Status/Comfort Care Code Status Assessed: Yes (Full code) Critical Care: No Time Spent Managing Pts Care (In Minutes): 64
[2024-07-18] MEDS: ONDANSETRON 4 MG/2 ML VIAL IV PRN (15:09)
[2024-07-18 15:41] LABS: Hematocrit 43.6 % (36.0-45.0); Hemoglobin 14.9 g/dL (12.0-15.0)
[2024-07-18] MEDS: MORPHINE 2 MG/ML SYR IV ONE (15:54)
[2024-07-18 17:33] LABS: Specific Gravity > 1.030 (1.005-1.030); Urine Bilirubin NEGATIVE (Negative); Urine Blood Negative (Negative); Urine Clarity Clear (Clear); Urine Color Light-Yellow (Yellow); Urine Glucose TRACE (Negative); Urine Ketones TRACE (Negative); Urine Microscopic Reflex YN NO UMIC; Urine Nitrite NEGATIVE (Negative); Urine Protein NEGATIVE (Negative); Urine Urobilinogen Normal (Normal); Urine pH 6.5 (5.0-7.0)
[2024-07-18] MEDS: ENOXAPARIN 100 MG/ML SYR SQ SCH (21:20)
[2024-07-19 05:23] LABS: Absolute Lymphocytes (CBC) 0.9 K/uL (0.7-4.9); Absolute Neutrophil 8.6 K/uL (1.8-8.0); Basophils % 0.3 % (0-1.3); Eosinophils % 0.2 % (0-4.4); Hematocrit 42.5 % (36.0-45.0); Hemoglobin 14.2 g/dL (12.0-15.0); Lymphocytes % 8.9 % (15.3-44.8); MCH 31.4 pg (27.0-35.0); MCHC 33.4 g/dL (32.0-36.0); MCV 93.9 fL (80-100); MPV 8.6 fL (7.6-11.3); Monocytes % 9.2 % (3.3-12.3); Neutrophils % 81.4 % (41.7-73.7); Nucleated Red Blood Cells % 0.1 % (0-0); Platelets 265 thou/uL (152-406); RBC Red Blood Cell Count 4.52 M/uL (3.86-4.86); Red Cell Distribution Width 13.8 % (12.1-15.2)
[2024-07-19 05:31] LABS: Albumin 3.2 g/dL (3.4-5.0); Anion Gap 8.8 mEq/L (5.0-15.0); Bilirubin Total 0.9 mg/dL (0.2-1.0); Globulin 3.1 g/dL (2.3-3.5); Potassium 3.8 mEq/L (3.5-5.1); Protein, Total 6.3 g/dL (6.4-8.2)
[2024-07-19] MEDS: KCL 20 MEQ/100 mL IVPB 20 MEQ/100 ML BAG IV SCH (07:23)
--- NOTE | 2024-07-19 08:43 | RAD REPORT ---
EXAM: Single view of the abdomen HISTORY: Abdominal pain FINDINGS: Nasogastric tube is coiled within the gastric fundus. The tip lies 2 cm from the GE junction. Several mildly dilated loops are present within the left abdomen and pelvis which may indicate a part ial mechanical obstruction. Air within the colon is diminished
[2024-07-19] MEDS: MORPHINE 2 MG/ML SYR IV PRN (09:52)
--- NOTE | 2024-07-19 15:27 | P.PN ---
Date of Service: 07/19/24 Subjective: Still having significant abdominal pain Not passing gas, has not had a bowel movement ROS: 10 point ROS as noted above, otherwise negative Physical exam GEN: Alert, oriented, NAD HEENT: Normal conjunctiva, sclera anicteric CV: Regular rate and rhythm, no edema Pulm: Nonlabored respirations on room air ABD: Soft, mildly distended, mild tenderness generalized MSK: No joint tenderness Integumentary: No rashes Neuro: Normal speech, normal affect Vitals reviewed Assessment: Recurrent small bowel obstruction secondary to large complex ventral hernia Suspected mild upper GI bleed Atrial fibrillation on chronic anticoagulation History of pulmonary embolism anticoagulation Hypertension Plan: Recurrent small bowel obstruction secondary to large complex ventral hernia Suspected mild upper GI bleed Patient's general surgeonDr. Faust consulted and following NGT inserted in ED, continue on LIWS Small amount of maroon blood present in drainage from NGT began after vomiting episode-had a few episodes of vomiting without blood prior Less bloody drainage or NGT today Continue Protonix drip H&H stable Continue empiric antibiotics Hernia reduced at bedside by Dr. Faust 07/19 Abdominal binder ordered/placed 07/19 Atrial fibrillation on chronic anticoagulation History of pulmonary embolism anticoagulation As long as there is not significant bleeding, large drops in H&H will continue therapeutic Lovenox Continue home medications when tolerating p.o., hold Eliquis for now Hypertension GERD Continue home medications when tolerating p.o., IV PPI for now DVT PPX: Therapeutic Lovenox Code status: Full Discharge Plan: Home Plan to discharge in: Greater than 2 days Time Spent Managing Pts Care (In Minutes): 35
[2024-07-20 05:33] LABS: Hematocrit 41.4 % (36.0-45.0); Hemoglobin 13.8 g/dL (12.0-15.0); MCH 31.3 pg (27.0-35.0); MCHC 33.3 g/dL (32.0-36.0); MCV 93.9 fL (80-100); MPV 8.7 fL (7.6-11.3); Platelets 223 thou/uL (152-406); RBC Red Blood Cell Count 4.41 M/uL (3.86-4.86)
[2024-07-20 05:47] LABS: Anion Gap 8.6 mEq/L (5.0-15.0); Potassium 3.6 mEq/L (3.5-5.1)
[2024-07-20] MEDS: KCL 20 MEQ/100 mL IVPB 20 MEQ/100 ML BAG IV SCH ×2 (08:00→11:01)
[2024-07-20] MEDS: HYDROMORPHONE HCL 0.5 MG/0.5 ML INJ IV PRN (08:54)
--- NOTE | 2024-07-20 12:11 | P.PN ---
Date of Service: 07/20/24 Subjective: Still having significant abdominal pain-pain meds adjusted again today Not passing gas, has not had a bowel movement ROS: 10 point ROS as noted above, otherwise negative Physical exam GEN: Alert, oriented, NAD HEENT: Normal conjunctiva, sclera anicteric CV: Regular rate and rhythm, no edema Pulm: Nonlabored respirations on room air ABD: Soft, mildly distended, mild tenderness generalized, abdominal binder in place MSK: No joint tenderness Integumentary: No rashes Neuro: Normal speech, normal affect Vitals reviewed Assessment: Recurrent small bowel obstruction secondary to large complex ventral hernia Suspected mild upper GI bleed Atrial fibrillation on chronic anticoagulation History of pulmonary embolism anticoagulation Hypertension Plan: Recurrent small bowel obstruction secondary to large complex ventral hernia Suspected mild upper GI bleed Patient's general surgeonDr. Faust consulted and following NGT inserted in ED, continue on LIWS Small amount of maroon blood present in drainage from NGT began after vomiting episode-had a few episodes of vomiting without blood prior No further bloody output in NGT Continue twice daily PPI H&H stable Continue empiric antibiotics Hernia reduced at bedside by Dr. Faust 07/19 Abdominal binder ordered/placed 07/19 Atrial fibrillation on chronic anticoagulation History of pulmonary embolism anticoagulation As long as there is not significant bleeding, large drops in H&H will continue therapeutic Lovenox Continue home medications when tolerating p.o., hold Eliquis for now Hypertension GERD Continue home medications when tolerating p.o., IV PPI for now DVT PPX: Therapeutic Lovenox Code status: Full Discharge Plan: Home Plan to discharge in: Greater than 2 days Time Spent Managing Pts Care (In Minutes): 35
--- NOTE | 2024-07-20 14:02 | RAD REPORT ---
EXAMINATION: CT ABDOMEN AND PELVIS WITHOUT CONTRAST CLINICAL INDICATION: bowel obstruction TECHNIQUE: CT abdomen and pelvis was performed, without IV contrast, as per department protocol. Axia l, sagittal and coronal reconstructions were obtained. One or more of the following dose reduction techniques were used: Automated exposure control, adjustment of the mA and kV according to the patien t size, and iterative reconstruction. Unless otherwise specified, incidental findings do not require dedicated imaging follow-up. COMPARISON: 07/18/2024, 07/19/2024 FINDINGS: The lack of intravenous contrast limits the sensitivity of this exam for evaluation of solid visceral organs, vascular structures, and retroperitoneum. LOWER CHEST: Small amount of pleural fluid seen bilaterally, greater on the left. Enteric tube tip c oils in the stomach. LIVER: The liver demonstrates small cyst in the anterior right lung. Trace fluid is seen about the li jerry edge. Distended gallbladder containing multiple calculi. SPLEEN: Normal size. No focal lesion. Mild perisplenic fluid. PANCREAS: No mass, ductal dilation, or alma-pancreatic fluid. ADRENALS: Normal; no mass. KIDNEYS AND URETERS: Normal size and contour. No hydronephrosis. URINARY BLADDER: Normal contour. GASTROINTESTINAL TRACT: A large complex [place] located ventral hernia is present. There is a secon dionne component seen along the right anterior abdominal wall fascia and contains fluid and bowel loop. Overall, this continues to result in a partial mechanical obstruction appears quite similar to the prior CT. No intra-abdominal abscess seen. No evidence of free intraperitoneal air. APPENDIX: Normal appendix. LYMPH NODES: No lymphadenopathy. MUSCULOSKELETAL: No acute or suspicious osseous abnormality. ADDITIONAL FINDINGS: 3.8 cm infrarenal abdominal aortic aneurysm is present. IMPRESSION: Dcqm-[id number] small bowel obstruction persists without significant change since the comparison kristi dy of CT. This is likely related to the complex ventral hernia described. Mild free fluid in the upper abdomen is noted. No free air seen. Gallbladder distention with multi stone cholelithiasis.
[2024-07-20] MEDS: Levofloxacin 750mg IV 750 MG/150 ML BAG IV SCH (14:16)
[2024-07-21 06:40] LABS: Hematocrit 38.6 % (36.0-45.0); Hemoglobin 13.2 g/dL (12.0-15.0); MCHC 34.3 g/dL (32.0-36.0); MCV 93.3 fL (80-100); MPV 8.3 fL (7.6-11.3); Platelets 237 thou/uL (152-406); RBC Red Blood Cell Count 4.13 M/uL (3.86-4.86); Red Cell Distribution Width 13.7 % (12.1-15.2)
[2024-07-21 06:55] LABS: Anion Gap 10.5 mEq/L (5.0-15.0); Potassium 3.5 mEq/L (3.5-5.1)
[2024-07-21] MEDS: Mupirocin NASAL 2 APPL/1 GM TUBE NAS SCH ×2 (08:00→09:00)
[2024-07-21] MEDS: Ringers Lactate 1,000 ML IV SCH (08:00)
--- NOTE | 2024-07-21 14:58 | P.PN ---
Date of Service: 07/21/24 Subjective: Still having significant abdominal pain Not passing gas, has not had a bowel movement NGT output decreased ROS: 10 point ROS as noted above, otherwise negative Physical exam GEN: Alert, oriented, NAD HEENT: Normal conjunctiva, sclera anicteric, NGT in place left nare CV: Regular rate and rhythm, no edema Pulm: Nonlabored respirations on room air ABD: Soft, mildly distended, mild tenderness generalized, abdominal binder in place MSK: No joint tenderness Integumentary: No rashes Neuro: Normal speech, normal affect Vitals reviewed Assessment: Recurrent small bowel obstruction secondary to large complex ventral hernia Suspected mild upper GI bleed Atrial fibrillation on chronic anticoagulation History of pulmonary embolism anticoagulation Hypertension Plan: Recurrent small bowel obstruction secondary to large complex ventral hernia Suspected mild upper GI bleed Patient's general surgeonDr. Faust consulted and following NGT inserted in ED, continue on LIWS Small amount of maroon blood present in drainage from NGT on admission Began after vomiting episode-had a few episodes of vomiting without blood prior No further bloody output in NGT Continue daily PPI H&H stable Continue empiric antibiotics Hernia reduced at bedside by Dr. Faust 07/19 Abdominal binder ordered/placed 07/19 Will start TPN/PICC Daily KUB/lactate ordered Atrial fibrillation on chronic anticoagulation History of pulmonary embolism anticoagulation As long as there is not significant bleeding, large drops in H&H will continue therapeutic Lovenox Continue home medications when tolerating p.o., hold Eliquis for now Hypertension GERD Continue home medications when tolerating p.o., IV PPI for now DVT PPX: Therapeutic Lovenox Code status: Full Discharge Plan: Home Plan to discharge in: Greater than 2 days Time Spent Managing Pts Care (In Minutes): 35
[2024-07-21] MEDS: AMINO ACIDS 5 %/DEXTROSE 20 % 2,000 ML, Lipids 20% 250 ML with MULTIVITAMINS INJ 10 ML IV SCH (17:00)
--- NOTE | 2024-07-21 19:55 | RAD REPORT ---
Procedure: Chest Single View History: Device placement. PICC line placement FINDINGS: A PICC line has been inserted with its tip in the mid SVC
[2024-07-22 05:19] LABS: Hematocrit 39.2 % (36.0-45.0); Hemoglobin 12.9 g/dL (12.0-15.0); MCH 31.1 pg (27.0-35.0); MCV 94.3 fL (80-100); MPV 8.6 fL (7.6-11.3); Platelets 256 thou/uL (152-406); RBC Red Blood Cell Count 4.15 M/uL (3.86-4.86); Red Cell Distribution Width 13.6 % (12.1-15.2)
[2024-07-22 05:33] LABS: Anion Gap 12.4 mEq/L (5.0-15.0); Magnesium 1.9 mg/dL (1.6-2.4); Phosphorus 2.3 mg/dL (2.5-4.9); Potassium 3.4 mEq/L (3.5-5.1)
--- NOTE | 2024-07-22 06:56 | RAD REPORT ---
EXAM: AP view(s) of the abdomen Abdomen 1 View (KUB) HISTORY: eval sbo COMPARISON: CT 07/20/2024, radiograph 07/19/2024 FINDINGS: Small bowel dilatation in the central and left hemiabdomen has increased since 07/19/2024. S ome of the loops measure up to 4 cm. Cholelithiasis.. No acute osseous abnormality. Scoliosis. IMPRESSION: Increasing small bowel dilatation remains concerning for small bowel obstruction, possibl y high-grade.
[2024-07-22] MEDS: AMINO ACIDS 5 %/DEXTROSE 20 % 2,000 ML IV SCH (08:00)
[2024-07-22] MEDS: PANTOPRAZOLE 40 MG INJ IVP SCH (09:00)
[2024-07-22] MEDS: SUCCINYLCHOLINE 20 MG/ML (10 ML) IV ONE (09:54)
[2024-07-22] MEDS: SUGAMMADEX SODIUM 200 MG/2 ML VIAL IV ONE (09:54)
[2024-07-22] MEDS ORDERED: AMINO ACIDS 5 %/DEXTROSE 20 % 2,000 ML, Lipids 20% 250 ML with MULTIVITAMINS INJ 10 ML IV SCH (10:00)
[2024-07-22] MEDS ORDERED: MIDAZOLAM HCL 2 MG/2 ML INJ ONE (10:02)
[2024-07-22] MEDS ORDERED: LIDOCAINE 2% MPF 5 ML VIAL ONE (10:02)
[2024-07-22] MEDS: LIDOCAINE HCL/EPINEPHRINE 20 ML MDV ONE (10:02)
[2024-07-22] MEDS ORDERED: propofoL 200 MG/20 ML VIAL IV ONE (10:02)
[2024-07-22] MEDS ORDERED: FENTANYL CITR 100 MCG/2 ML ONE ×2 (10:02→12:42)
[2024-07-22] MEDS ORDERED: ROCURONIUM 50 MG/5 ML VIAL IV ONE ×2 (10:04→12:42)
--- NOTE | 2024-07-22 11:27 | CON ---
Date of Consultation: 07/18/2024 Brief History Of Present Illness: The patient is an 83-year-old female with a history of atrial fibr illation, chronic anticoagulation, pulmonary embolus, and multiple bowel obstructions in the past, kn own to have a large complex ventral abdominal hernia with a complex abdominal wall history including tubal ligation; intestinal perforation; colon resection; colostomy creation; colostomy takedown; vent ral hernia, multiple ventral hernia repairs, attempts with both synthetic and biologic mesh including plastic surgical reconstruction of her abdominal wall, who presents with a recurrent small bowel obs truction and significant hernia, worsening symptoms including pain, nausea, vomiting, which started b eginning yesterday prior to her arrival on 07/17. She has had similar episodes before in the past, b ut had been able to treat these without surgical intervention on my previous nonoperative management; however, on this particular occasion, she feels that the symptom is significantly worse and as such, she came to the emergency room with the above-stated complaints. Past Medical History: Hip pain; GERD; gastritis; hypertension; back pain; neck pain; back sprain; ch est wall chronic pain; cholelithiasis; colon cancer; atrial fibrillation; pulmonary embolism, on anti coagulation. Past Surgical History: Includes ; tubal ligation; tonsillectomy; adenoid; foot surgery; sig moid colectomy with colostomy creation; colostomy takedown; ventral hernia repair on multiple occasio ns including with biologic mesh, including also additional surgery with Plastic Surgery; complex vent ral abdominal wall closure with grafting. Allergies: TO AMPICILLIN, SULFA, TETANUS. Home Medications: Include Avapro, Norvasc, Eliquis, tramadol, metoprolol, Levaquin, Reglan, Flagyl. Family History: Significant for pancreatic cancer, heart disease, hypertension. Social History: She denies smoking, alcohol, or recreational drug use. Review of Systems: Ten-point review of systems other than HPI, denies. Physical Examination: General: At the time of my examination, she is awake, alert, and oriented. Psychiatric: She is appropriate, conversive. HEENT: She is normocephalic. NG tube in place. Neck: Supple without JVD. Chest: Normal expansion and excursion. Cardiovascular: Regular rate, at this time hemodynamically stable. Pulmonary: Clear to auscultation bilaterally. Abdomen: Distended, soft at this time. Ventral hernia palpable, partially reducible, but tender to palpation globally. Significant complex ventral abdominal hernia and multiple scars are evident over the abdominal wall in multiple locations. Extremities: No clubbing, cyanosis, edema. Skin: Warm and dry. Laboratory Data: Revealed white blood cell count of 10, hemoglobin 14.7, hematocrit 45.0, platelet c ount is 265, neutrophils 84%. PT 13.5, INR 1.21. Sodium 137, potassium 3.8, chloride 105, carbon di oxide 25, BUN 22, creatinine 1.07, glucose is 138. Lactic acid pending. Calcium 9.5, magnesium 2.1. Total bilirubin 0.6, direct bilirubin 0.2. AST is 16, ALT 20, alkaline phosphatase 86. Urinalysis was negative except for trace glucose and ketones. She had imaging performed, which included a CT o f the abdomen and pelvis, which is officially read as small hiatal hernia, similar mild wall prominen ce of the stomach and duodenum, distention of the proximal to mid small bowel loops with multiple air -fluid levels including a complex ventral hernia with small bowel loops extending superficial to the mesh material, transition point of the exiting small bowel loop near the medial mesh margin. Small a scites within the hernia sac. More distal small bowel and large bowel are decompressed. Uncomplicat ed loop of mid transverse colon also enters the large hernia sac superior to the small bowel. Append ix is normal. Severe atherosclerosis is noted as well. Unchanged infrarenal abdominal aortic aneury sm noted. Cholelithiasis noted as well. Assessment And Plan: This is an 83-year-old woman who comes in with a complex ventral abdominal nery ia, likely contributing to small bowel obstruction. 1.IV fluid hydration. 2.NG tube decompression. 3.Serial abdominal exams. 4.I have explained the risks, benefits, and alternatives of operative versus nonoperative management . We will attempt nonoperative management; however, should operative management be required, I have explained the risks, benefits, and alternatives of this procedure, which would include a diagnostic l aparoscopy, likely exploratory laparotomy with possible bowel resection and indicated procedures. Ri sks included, but not limited to, bleeding; infection; damage to surrounding tissues; need for furthe r operation/procedures; multiple abdominal surgeries; possible temporary abdominal closure and leavin g the abdomen open; recurrent ventral hernia; colostomy creation; blood clots; heart attack; strokes; significant increased risk due to her pre-existing conditions; trouble in the perioperative period i ncluding wounds, fistulas; and other unforeseen complications in the perioperative period. The patie nt displayed understanding of the above-stated plan and agreed to proceed as indicated. Thank you for this interesting consult. MICHELLE Voice ID: [id number] Report ID: [id number]
[2024-07-22] MEDS: Ringers Lactate 1,000 ML IV ONE ×3 (12:18→13:08)
[2024-07-22] MEDS ORDERED: dexAMETHasone 10 MG/ML VIAL ONE (13:49)
[2024-07-22] MEDS ORDERED: ONDANSETRON 4 MG/2 ML VIAL ONE (13:49)
--- NOTE | 2024-07-22 14:39 | P.OP ---
Preoperative diagnosis: Bowel Obstruction Postoperative diagnosis: Bowel Obstruction Primary procedure: Diagnostic Laparoscopy, Exploratory Laparotomy Secondary procedure: Small Bowel Resection Other procedure(s): Exptensive Adhesiolysis > 2 hours Anesthesia: GETA + Local Estimated blood loss: 150cc Specimen: 46cm Mid-Distal Small Bowel Findings: Adhesions from prior mesh causing obstruction Complications: None Drain(s): FISH drain (10mm Flat - Peritoneal, 10Fr - in mesh cavity) Implants: Seprafilm x 2 sheets Transferred to: ICU Condition: Serious
[2024-07-22] MEDS: FENTANYL CITR 250 MCG/5 ML ONE (15:09)
[2024-07-22] MEDS: FENTANYL CITR 100 MCG/2 ML ONE (15:11)
[2024-07-22] MEDS: HYDROMORPHONE HCL 1 MG/ML INJ ONE (15:26)
--- NOTE | 2024-07-22 15:30 | P.PN ---
Date of Service: 07/22/24 Subjective: Still having significant abdominal pain Not passing gas, has not had a bowel movement NGT output decreased KUB with worsening this morning Went to OR for surgical management ROS: 10 point ROS as noted above, otherwise negative Physical exam GEN: Alert, oriented, NAD HEENT: Normal conjunctiva, sclera anicteric, NGT in place left nare CV: Regular rate and rhythm, no edema Pulm: Nonlabored respirations on room air ABD: Soft, mildly distended, mild tenderness generalized, abdominal binder in place MSK: No joint tenderness Integumentary: No rashes Neuro: Normal speech, normal affect Vitals reviewed Assessment: Recurrent small bowel obstruction secondary to large complex ventral hernia S/P Diagnostic Laparoscopy, Exploratory Laparotomy, Small Bowel Resection,Exptensive Adhesiolysis 07/[address]ins in place Suspected mild upper GI bleed-resolved Atrial fibrillation on chronic anticoagulation History of pulmonary embolism anticoagulation Hypertension Plan: Recurrent small bowel obstruction secondary to large complex ventral hernia S/P Diagnostic Laparoscopy, Exploratory Laparotomy, Small Bowel Resection,Exptensive Adhesiolysis 07/[address]ins in place Suspected mild upper GI bleed-resolved Patient's general surgeonDr. Faust consulted and following S/P Diagnostic Laparoscopy, Exploratory Laparotomy, Small Bowel Resection,Exptensive Adhesiolysis 07/22 NGT inserted in ED, continue on LIWS No further bloody output in NGT Continue daily PPI H&H stable Continue empiric antibiotics Hernia reduced at bedside by Dr. Faust 07/19 Abdominal binder ordered/placed 07/19 Will start TPN/PICC Daily KUB/lactate ordered Atrial fibrillation on chronic anticoagulation History of pulmonary embolism anticoagulation As long as there is not significant bleeding, large drops in H&H will continue therapeutic Lovenox Hold lovenox tonight 07/22, resume tomorrow AM Continue home medications when tolerating p.o., hold Eliquis for now Hypertension GERD Continue home medications when tolerating p.o., IV PPI for now DVT PPX: Therapeutic Lovenox Code status: Full Discharge Plan: Home Plan to discharge in: Greater than 2 days Time Spent Managing Pts Care (In Minutes): 35 <Yang Marley - Last Filed: 07/22/24 15:25> Date of service: 07/22/2024 Patient seen and examined on rounds this morning with SIVA Elliotta. I performed a substantial part of the MDM during this patient's care today as noted above in the plan of care. I agree with plan of care as noted above with the following additions / corrections: Continues with distended abdomen, NG tube with green output Reports no flatus, no BM KUB with slightly more distended small bowel Discussed with Dr. Faust, plan to take to the OR today Discussed that postoperatively we will place patient in ICU for close monitoring Patient did receive her Lovenox this morning <Robert Levy - Last Filed: 07/23/24 17:30>
[2024-07-22] MEDS: AMINO ACIDS 5 %/DEXTROSE 20 % 2,000 ML, Lipids 20% 250 ML with MULTIVITAMINS INJ 10 ML IV SCH (16:28)
[2024-07-22] MEDS: HYDROMORPHONE HCL 1 MG/ML INJ IV PRN ×2 (16:29→18:53)
[2024-07-22] MEDS ORDERED: AMINO ACIDS 5 %/DEXTROSE 20 % 2,000 ML IV SCH (17:00)
[2024-07-22] MEDS ORDERED: HYDROMORPHONE HCL 1 MG/ML INJ IV PRN (18:18)
[2024-07-22] MEDS: Ringers Lactate 1,000 ML IV SCH (20:00)
[2024-07-22] MEDS: KCL 20 MEQ/100 mL IVPB 20 MEQ/100 ML BAG IV SCH (20:08)
[2024-07-22] MEDS: NA CHLORIDE 0.9% 1,000 ML ONE (22:26)
[2024-07-22 22:32] LABS: Hematocrit 28.2 % (36.0-45.0); Hemoglobin 9.7 g/dL (12.0-15.0)
[2024-07-22] MEDS: NA CHLORIDE 0.9% 1,000 ML IV ONE (22:40)
[2024-07-22] MEDS: HYDROMORPHONE HCL 2 MG/ML inj IV PRN (23:52)
--- NOTE | 2024-07-23 00:33 | OP ---
Date of Procedure: 07/22/2024 Surgeon: Alvin Faust MD, Preoperative Diagnosis: Bowel obstruction/ventral hernia. Postoperative Diagnosis: Bowel obstruction/ventral hernia. Procedures Performed: 1.Diagnostic laparoscopy. 2.Exploratory laparotomy. 3.Small bowel resection. 4.Extensive adhesiolysis greater than 2 hours. 5.Primary abdominal closure. Anesthesia: General endotracheal plus local with 1% lidocaine with epinephrine. Estimated Blood Loss: 150 cc. Specimen: 46 cm of mid to distal small bowel. Findings: Adhesions from prior mesh causing obstruction. Complications: None. Drains: 1.10 mm flat FISH drain placed in the left lower abdomen, swung through the pelvis near the new anasto mosis. 2.Drain was a 10-Bahamian round, placed into a mesh cavity between the layers of previously placed mes h and the midline. Implants: Seprafilm x2 sheaths were placed. Condition: The patient was transferred to ICU in serious condition. Brief History Of Present Illness: The patient is an 83-year-old woman, known to me from previous bow el obstruction. She was treated nonoperatively before on that occasion. She came to my clinic. We had discussed options of colonoscopy, and discussion of possible laparoscopic ventral hernia repair w ith mesh; however, given her medical comorbidities and the fact that she had not had a bowel obstruct ion since she has been using the abdominal binder per my recommendations and was feeling generally we ll, tolerating diet, having normal bowel function, and had no pain, we opted to proceed with nonopera tive management at that point; however, she recently developed abdominal pain, nausea, vomiting, and distention of her abdomen through her previously known hernia and as such came to the emergency room. She was worked up and found to have a bowel obstruction without any passage of gas or contents. Sh jax had an NG tube placed with good function at that point. Her symptoms were minimal for the most par t. She had intermittent pain episodes, which were well controlled with minimal pain medication. She was ambulating. She kept her abdominal binder on, but no function had improved and today she develo ped worsening abdominal pain and a KUB, which showed a dilation of small bowel consistent with a wors ening picture of small bowel obstruction. We did discuss surgical options and had opted to try nonop erative management because of her complex abdominal history with multiple abdominal surgeries before in the past, colostomy creation, colostomy takedown, mesh hernia repair, and so forth; however, given her current condition, we had discussed the risks, benefits, and alternatives of proceeding forward with surgery at this time and as such, opted to proceed with surgery as her obstruction seemed to be worsening and her symptoms corroborated the KUB findings. Procedure In Detail: The patient was brought to the operating room, prepped and draped in usual ster ile fashion. After adequate anesthesia was achieved, the patient remained in the supine position. I proceeded by first anesthetizing the area of the left upper quadrant down to subcutaneous tissues. I then placed a 5 mm 0-degree optical trocar in the abdomen without incident or complication. Insuff lation was obtained to 15 mmHg at this time. There was no injury to vital structures upon entry into the abdomen. With insufflation of 15, I placed an additional trocar in the left mid abdomen. This was similarly a 5 mm trocar placed under direct vision without incident or complication. Significant bowel distention was appreciated at this point; however, no bowel injury had occurred upon entry int o the abdomen. At this point, I attempted to take down adhesions at bowel, which consisted of both s mall bowel and a loop of transverse colon through a complex salvadorean cheese type large ventral abdominal hernia with visible mesh in the area; however, there appeared to be defects in the mesh with dehisce nce as well and a separation of the layers of the mesh on visual inspection. At this point, I procee ded to take down adhesions as much as I could safely do so; however, I also had planned to allow for a safe entry zone as the patient had significant scars to midline evident on CT scan as well as given her history and her previous abdominal scars. After I cleared enough of a safe entry zone laparosco pically, opted to convert to the open procedure at this point. I therefore removed the camera and to ok the trocars out, left the patient with insufflation in place. I then made an upper midline laparo chilo incision with a 10 blade down through subcutaneous tissues ultimately dissecting down through th e fat, approaching the fascia and entering a complex hernia sac safely without injury to the bowel at this point. I then proceeded to under visual guidance open the abdomen to proceed toward the inferi or aspect; however, multiple adhesions were encountered, but the abdomen was entered at this point, a nd therefore I used a combination of electrocautery and predominantly Metzenbaum scissors to take laura n significant thick adhesions from the midline hernia mesh, which was appreciated in this area and mendoza d to be transected. There was significant fluid in this area as well, consistent with an ascites-typ e picture/fluid accumulation between bi-layers of mesh and in the peritoneal cavity as well, where mu ltiple complex bubble type hernia defects were appreciated in this area. Multiple loops of small bow el had thick fibrous adhesions in this area. This was taken down as described above. Careful meticu lous dissection continued slowly over the course of several hours, ultimately opening the abdomen in its entirety and freeing up segments of bowel from the mesh. There was a mesh in close apposition to several pieces of small bowel. The previous anastomosis near the terminal ileum was also appreciate d, but did not appear to be involved in this area. A staple line was appreciated at this point, but enteric contents seemed to move through this area. The transition point was at the mesh through the ventral hernia. The transverse colon also had to be released from this area. There was no obvious i njury to the transverse colon at this point. I had to ligate portions of the omentum as well and rem ove it. At this point, the hernia sacs were removed as they were encountered within region, without proceeding too aggressively in this fashion. After I freed up the small bowel, I ran in its entirety multiple times from the ileocecal valve to the ligament of Treitz. There were several areas of conc alicia with an ischemic/stenotic portion at the proximal bowel, where the transition was appreciated, wh ere the mesh was in close apposition to the bowel. In addition, there was a serosal injury about 25 to 30 cm away from the previous area and another area of bowel that appeared to be in close appositio n to approximately 40 cm away from the initial area of concern with stenosis of the small bowel. The refore, I opted to resect approximately 45 to 46 cm of small bowel and after inspecting the bowel and finding that these areas had issues of concern with serosal injuries and such as described. At this point, I made mesenteric windows using electrocautery, fired a NIKKI-60 stapler with a blue load acros s the small bowel with good approximation of the tissues. I then proceeded to take the proximal and distal small bowel down after firing the stapler as described above using the LigaSure device to liga te the mesentery. After this portion of small bowel was resected, it was sent off for pathologic exa mination, approximately 4 to 6 cm included in the specimen. I then placed the bowel in a side-to-miladys e fashion, created a clean field at this point and made enterotomies on both proximal and distal side s after placing silk suture of a 3-0 variety in the proximal-distal aspect to allow for proper orient ation of the bowel in an antimesenteric to antimesenteric fashion. At this point, enterotomies were made and dilated using Lola clamp, and suction of enteric contents was appreciated on this side. I then fired a NIKKI 60 blue load through the common channel with good apposition of the tissues. The co mmon channel appeared to be patent without issue, with enteric contents moving through without issue. There was no bleeding that needed to be controlled at this point in the common channel. At this po int, I closed the common defect using a 3-0 PDS in a [place] type running suture with good approximat ion of the tissues. I then closed a second Lembert layer of 3-0 Lembert silk sutures over the top to seal the common defect at this point. The area was palpated and found to be widely patent at this p oint. Then, the sterile field was re-established at this point, and I closed the mesenteric defect u sing a 3-0 Vicryl in an interrupted fashion with good approximation of the tissues. At this point, t he bowel was returned and tested. Enteric contents moved easily through the anastomosis without issu e. I then wrapped it with omentum as previously located. The abdomen was copiously irrigated multip le times and suctioned out to completely dry at this point. I then brought in a separate 10 mm flat FISH drain brought in through the left mid abdomen 5 mm trocar site using a TNA clamp and placed into t he pelvis near the anastomosis in a dependent type fashion. I then secured it to the skin using a 3- 0 nylon suture without issue. Bulb suction was applied to at this point. I then brought an addition al 10 mm Bahamian round FISH drain into the right lower abdomen through a separate stab incision made wit h a 15 blade. I then placed this round drain into the laminate bi-layer of the mesh to all ow for evacuation of any fluid accumulated in this area. At this point, I placed the abdominal Fish in water and placed 2 pieces of Seprafilm over the omentum over the common opening to place the Fish in place, and then closed the abdominal wall and the previously placed mesh using a running #1 looped PDS suture and interrupted #1 Vicryl [id number] internal retention sutures. At this point, I t hen irrigated the abdominal wall and closed the subcutaneous fat plane and scar tissue over the top o f this to buttress and reinforce the mesh and protect it from any exposure at this point. After this was completed, I placed a quarter-inch [place] drain at the base of the incision and secured it on t he proximal and distal aspects of the midline laparotomy incision and closed the remainder of it usin g interrupted taylor and a sterile dressing was placed over top. The 5 mm trocar site in the left u pper quadrant was also closed in the similar fashion. Both drain sutures, which were 3-0 nylon sutur es, held the drains in good position at this point. The abdominal binder was then reapplied. The pa cindy tolerated the procedure well without incident or complication, transferred to ICU in serious co ndition. All counts were correct at the end of the case. LEIA/RADHA Voice ID: [id number] Report ID: [id number]
[2024-07-23 05:44] LABS: Hematocrit 24.9 % (36.0-45.0); Hemoglobin 8.1 g/dL (12.0-15.0); MCH 31.1 pg (27.0-35.0); MCHC 32.5 g/dL (32.0-36.0); MCV 95.7 fL (80-100); MPV 8.8 fL (7.6-11.3); Platelets 224 thou/uL (152-406); Red Cell Distribution Width 13.5 % (12.1-15.2)
[2024-07-23 05:51] LABS: Anion Gap 7.7 mEq/L (5.0-15.0); Magnesium 1.5 mg/dL (1.6-2.4); Potassium 3.7 mEq/L (3.5-5.1)
[2024-07-23 06:03] LABS: Phosphorus 1.2 mg/dL (2.5-4.9)
[2024-07-23] MEDS: POTASSIUM PHOS IN 0.9 % NACL 15 MMOL/250 ML BAG IV ONE ×3 (06:24→22:30)
[2024-07-23] MEDS: Magnesium Sulfate 2gm IVPB 2 G/50 ML BAG IV ONE (06:24)
[2024-07-23 08:26] LABS: Hematocrit 24.5 % (36.0-45.0)
[2024-07-23] MEDS ORDERED: NA CHLORIDE 0.9% 250 ML IV SCH (09:00)
[2024-07-23] MEDS: NA CHLORIDE 0.9% 250 ML ONE (09:12)
--- NOTE | 2024-07-23 09:45 | P.PN ---
Date of Service: 07/23/24 Subjective: S/P resection yesterday Having significant abdominal pain Blood pressure soft, mildly tachycardic ROS: 10 point ROS as noted above, otherwise negative Physical exam GEN: Alert, oriented, NAD HEENT: Normal conjunctiva, sclera anicteric, NGT in place left nare CV: Regular rate and rhythm, no edema Pulm: Nonlabored respirations on room air ABD: Soft, mildly distended, mild tenderness generalized, abdominal binder in place, FISH drain in place x 2 with sanguinous drainage MSK: No joint tenderness Integumentary: No rashes Neuro: Normal speech, normal affect Vitals reviewed Assessment: Recurrent small bowel obstruction secondary to large complex ventral hernia S/P Diagnostic Laparoscopy, Exploratory Laparotomy, Small Bowel Resection,Exptensive Adhesiolysis 07/[address] Acute blood loss anemia Hypomagnesemia hypophosphatemia Suspected mild upper GI bleed-resolved Atrial fibrillation on chronic anticoagulation History of pulmonary embolism anticoagulation Hypertension Plan: Recurrent small bowel obstruction secondary to large complex ventral hernia S/P Diagnostic Laparoscopy, Exploratory Laparotomy, Small Bowel Resection,Exptensive Adhesiolysis 07/[address] in place Acute blood loss anemia Suspected mild upper GI bleed-resolved Hypomagnesemia hypophosphatemia Patient's general surgeonDr. Faust consulted and following S/P Diagnostic Laparoscopy, Exploratory Laparotomy, Small Bowel Resection,Exptensive Adhesiolysis 07/22 NGT inserted in ED, continue on LIWS No further bloody output in NGT FISH drain in place x 2, 300 mL sanguinous drainage overnight Hemoglobin downtrending, now 8 Given soft blood pressure, tachycardia will transfuse 1 unit PRBC now Continue daily PPI Continue empiric antibiotics Hernia reduced at bedside by Dr. Faust 07/19 Abdominal binder ordered/placed 07/19 TPN started evening 07/22-rate reduced to 30 mL/h given electrolyte abnormalities Repeat chemistry, mag, Phos this afternoon Electrolyte protocols in place Atrial fibrillation on chronic anticoagulation History of pulmonary embolism anticoagulation Lovenox on hold since evening of 07/22 after surgery Sanguinous drainage in FISH drains Hemoglobin downtrending Will need to hold Lovenox for now Monitor H&H closely Hypertension GERD Continue home medications when tolerating p.o., IV PPI for now DVT PPX: SCDs-therapeutic Lovenox on hold given acute blood loss anemia Code status: Full Discharge Plan: Home Plan to discharge in: Greater than 2 days Time Spent Managing Pts Care (In Minutes): 35 <Yang Marley - Last Filed: 07/23/24 09:42> Patient seen and examined on rounds this morning with FIELD TALENT QUALIFICATION SPECIALIST Donell. I performed a substantial part of the MDM during this patient's care today as noted above in the plan of care. I spent 35 minutes of critical care time managing the patient's care at bedside. I agree with plan of care as noted above with the following additions / corrections: Blood pressure borderline low Oliguric today with 0.28 mL/kg/hr urine output Phosphorus low, TPN rate lowered due to concern for refeeding syndrome, just IV fluids Hemoglobin dropped, with bloody output from FISH drain, suspected component of hemodilution given 4+ liters of IV fluid given in surgery yesterday Repeat hemoglobin this morning was 8, with ongoing bleeding, will transfuse 1 unit PRBC today Repeat labs, H/H every 8, will recheck chemistries later today Replace phosphorus <Robert Levy - Last Filed: 07/23/24 17:28>
[2024-07-23] MEDS: NS KCL 20MEQ 20 MEQ/1,000 ML BAG IV SCH (11:56)
[2024-07-23] MEDS: INSULIN REGULAR (HUMAN) 100 UNIT/ML SQ SCH (12:00)
--- NOTE | 2024-07-23 12:06 | P.PN ---
Subjective Date of Service: 07/23/24 Chief Complaint: SBO Subjective: No new changes (Patient has some post op pain particularly in LLQ, but othewise feels ok. no respiratory or cardac complaints.) Physical Examination - Vital Signs Temperature: 97.2 F Blood Pressure: 106/60 Pulse: 101 Respirations: 21 Pulse Ox (%): 94 - Physical Exam General: Alert, In no apparent distress, Oriented x3, Cooperative HEENT: Normocephalic Neck: Supple Respiratory: Clear to auscultation bilaterally, Normal air movement Cardiovascular: Irregular heart rate/rhythm (tachycardia betweekn 96 and 107 during my exam) Capillary refill: Brisk Gastrointestinal: Other (soft, mild appropriate TTP, ND, Minimal midline drainage, LLQ FISH blood tinged, RLQ serosang) Integumentary: Other (somewhat pale pallor) Neurological: Normal speech Urinary: Nickerson catheter - Studies Medications List Reviewed: Yes Assessment And Plan - Current Problems (Diagnosis) (1) Bowel obstruction Current Visit: Yes Status: Acute Plan: Patient is a 83 year old woman with a complicated abdominal surgical history who presented to hospital with bowel obstruction not responsive to medical management Patient is s/p Exploratory Laparoscopy converted to Exploratory Laparotomy, Extensive Adhesiolsis, Small Bowel Resection, primary anastamosis, primary fascial closure (mesh remains in place) on 07-22-2024 - Gen: Pain issues last night better with dilaudid 1mg Q2 hrs prn, but held due to hypotension overnight - CVS: Tachycardia up to 130s last night, responsive to IV Fluid bolus, now improved, but remains tachycardic - history of atrial fibrillation noted - Pulmonary: oxygen supplementation via nasal cannula due to borderline SpO2 - 96%, continue incentive spirometry - GI: anticipate ileus due to small bowel resection and extensive adhesiolysis, FISH drains: LEFT intraperitoneal, RIGHT - in Mesh cavity bilayer, mildine wound has taylor with 1/4" mariela over fascia, change dressing as needed, monitor lactate - FEN: Fluids - change to NS + 20KCl, keep total IVF @ 100 cc/ hr for next day or so, electrolyte replacement protocol, Nutrition - keep TPN for now, will adjust accordingly - ID: continue antibiotics due to prolonged surgery and mesh in place - Endo: start moderate insulin sliding scale and continue accuchecks - Prophylaxis: stop PPI unless evidence of bleeding from NG Tube, hold anticoagulation today due to transfusion requirement, SCDs to remain in place - Renal: adequate urine output, strict I/O, patient has positive fluid balance - Heme: transfuse PRBC and recommend goal near 9 as she appears pale and hemodynamics improved after receiving PRBC, contribution is likely partially dilutional as she is at least 3 liters positive fluid balance from prior to surgery - PT consult - Placement eval after patient is assessed by PT - Tubes / Lines: Keep NGT, Nickerson, PICC line, Peripheral IV - continue medical and cardiac management per hospitalist, brakes inspector - Spent 45 minutes in direct patient contatct
[2024-07-23 12:47] LABS: Hemoglobin 9.6 g/dL (12.0-15.0)
[2024-07-23 13:01] LABS: Anion Gap 10.9 mEq/L (5.0-15.0); Magnesium 2.1 mg/dL (1.6-2.4); Potassium 3.9 mEq/L (3.5-5.1)
[2024-07-23 13:05] LABS: Phosphorus 1.1 mg/dL (2.5-4.9)
[2024-07-23] MEDS: FENTANYL CITR 100 MCG/2 ML IV PRN (14:59)
[2024-07-23] MEDS ORDERED: AMINO ACIDS 5 %/DEXTROSE 20 % 2,000 ML IV SCH (17:00)
[2024-07-23] MEDS: AMINO ACIDS 5 %/DEXTROSE 20 % 2,000 ML IV SCH (17:08)
[2024-07-23 20:33] LABS: Hematocrit 26.5 % (36.0-45.0); Hemoglobin 8.8 g/dL (12.0-15.0)
[2024-07-23 20:44] LABS: Anion Gap 6.9 mEq/L (5.0-15.0); Phosphorus 1.7 mg/dL (2.5-4.9); Potassium 3.9 mEq/L (3.5-5.1)
[2024-07-24 06:21] LABS: Hematocrit 23.8 % (36.0-45.0); Hemoglobin 8.2 g/dL (12.0-15.0); MCH 31.4 pg (27.0-35.0); MCHC 34.3 g/dL (32.0-36.0); MCV 91.6 fL (80-100); MPV 8.6 fL (7.6-11.3); Platelets 211 thou/uL (152-406); Red Cell Distribution Width 14.8 % (12.1-15.2)
[2024-07-24 06:32] LABS: Albumin/Globulin Ratio 0.7 (1.1-1.8); Anion Gap 8.5 mEq/L (5.0-15.0); Bilirubin Total 0.3 mg/dL (0.2-1.0); Globulin 2.7 g/dL (2.3-3.5); Magnesium 2.1 mg/dL (1.6-2.4); Potassium 3.5 mEq/L (3.5-5.1); Protein, Total 4.7 g/dL (6.4-8.2)
[2024-07-24 06:49] LABS: C-Reactive Protein 79.1 mg/L (<3.00)
[2024-07-24 06:54] LABS: Phosphorus 0.7 mg/dL (2.5-4.9)
[2024-07-24] MEDS: POTASSIUM PHOS 30 MM in NA CHLORIDE 0.9% 500 ML IV SCH (08:13)
[2024-07-24] MEDS: Mupirocin NASAL 2 APPL/1 GM TUBE NAS SCH (08:14)
[2024-07-24] MEDS: NA CHLORIDE 0.9% 250 ML ONE (09:43)
[2024-07-24] MEDS: Meropenem 1,000 MG in NA CHLORIDE 0.9% 100 ML IV SCH (11:38)
[2024-07-24] MEDS: HYDROMORPHONE HCL 1 MG/ML INJ IV PRN (12:30)
--- NOTE | 2024-07-24 12:51 | P.PN ---
Date of Service: 07/24/24 Subjective: S/P resection Dealing with nausea/abd pain still Supervisor Phosphatic Fertilizer faltus/BM yet Blood pressure soft but improving, mildly tachycardic Lovenox still on hold ROS: 10 point ROS as noted above, otherwise negative Physical exam GEN: Alert, oriented, NAD HEENT: Normal conjunctiva, sclera anicteric, NGT in place left nare CV: Regular rate and rhythm, no edema Pulm: Nonlabored respirations on room air ABD: Soft, mildly distended, mild tenderness generalized, abdominal binder in place, FISH drain in place x 2 with sanguinous drainage-less drainage MSK: No joint tenderness Integumentary: No rashes Neuro: Normal speech, normal affect Vitals reviewed Assessment: Recurrent small bowel obstruction secondary to large complex ventral hernia S/P Diagnostic Laparoscopy, Exploratory Laparotomy, Small Bowel Resection,Exptensive Adhesiolysis 07/[address] in place Acute blood loss anemia Hypomagnesemia hypophosphatemia Suspected mild upper GI bleed-resolved Atrial fibrillation on chronic anticoagulation History of pulmonary embolism anticoagulation Hypertension Plan: Recurrent small bowel obstruction secondary to large complex ventral hernia S/P Diagnostic Laparoscopy, Exploratory Laparotomy, Small Bowel Resection,Exptensive Adhesiolysis 07/[address] FISH drains in place Acute blood loss anemia Suspected mild upper GI bleed-resolved Hypomagnesemia hypophosphatemia Patient's general surgeonDr. Faust consulted and following S/P Diagnostic Laparoscopy, Exploratory Laparotomy, Small Bowel Resection,Exptensive Adhesiolysis 07/22 NGT inserted in ED, continue on LIWS No further bloody output in NGT FISH drain in place x 2, decreasing sanguinous drainage Hemoglobin around 8, surgery recommends additional unit PRBC Therapeutic Lovenox still on hold per general surgery-reassess 07/25 PPI stopped 07/23 as recommended by general surgery Continue empiric antibiotics-increased from levaquin/flagyl to merrem 07/24 given worsening leukocytosis Hernia reduced at bedside by Dr. Faust 07/19 Abdominal binder ordered/placed 07/19 TPN started evening 07/22-rate titrated to 50ml/hr today Repeat chemistry, mag, Phos this afternoon Electrolyte protocols in place Atrial fibrillation on chronic anticoagulation History of pulmonary embolism anticoagulation Lovenox on hold since evening of 07/22 after surgery-reassess 10/1 Sanguinous drainage in FISH drains Hemoglobin downtrending Will need to hold Lovenox for now Discuss with surgery about resumption time/date Monitor H&H closely Hypertension GERD Continue home medications when tolerating DVT PPX: SCDs-therapeutic Lovenox on hold given acute blood loss anemia Code status: Full Discharge Plan: Home Plan to discharge in: Greater than 2 days Time Spent Managing Pts Care (In Minutes): 35
[2024-07-24 15:26] LABS: Hematocrit 26.6 % (36.0-45.0); Hemoglobin 8.8 g/dL (12.0-15.0)
[2024-07-24 15:47] LABS: Anion Gap 7.6 mEq/L (5.0-15.0); Magnesium 1.9 mg/dL (1.6-2.4); Potassium 3.6 mEq/L (3.5-5.1)
[2024-07-24 15:50] LABS: Phosphorus 1.5 mg/dL (2.5-4.9)
[2024-07-24] MEDS: POTASSIUM PHOS IN 0.9 % NACL 15 MMOL/250 ML BAG IV ONE (17:35)
[2024-07-24] MEDS: AMINO ACIDS 5 %/DEXTROSE 20 % 2,000 ML, Lipids 20% 250 ML with MULTIVITAMINS INJ 10 ML IV SCH (17:36)
[2024-07-24] MEDS: INSULIN REGULAR (HUMAN) 100 UNIT/ML SQ SCH (17:49)
[2024-07-25 06:20] LABS: Hemoglobin 8.6 g/dL (12.0-15.0); MCH 30.6 pg (27.0-35.0); MCHC 32.9 g/dL (32.0-36.0); MCV 92.9 fL (80-100); MPV 8.8 fL (7.6-11.3); Platelets 163 thou/uL (152-406); Red Cell Distribution Width 15.5 % (12.1-15.2)
[2024-07-25 06:34] LABS: Anion Gap 6.6 mEq/L (5.0-15.0); Magnesium 1.9 mg/dL (1.6-2.4); Phosphorus 1.3 mg/dL (2.5-4.9); Potassium 3.6 mEq/L (3.5-5.1)
[2024-07-25] MEDS ORDERED: POTASSIUM PHOS IN 0.9 % NACL 15 MMOL/250 ML BAG IV ONE (07:00)
[2024-07-25] MEDS: POTASSIUM PHOS 30 MM in NA CHLORIDE 0.9% 500 ML IV SCH (08:28)
[2024-07-25] MEDS: METOPROLOL TARTRATE 5 MG/5 ML INJ IV SCH (11:35)
--- NOTE | 2024-07-25 11:36 | P.CNS ---
Date of Consult: 07/25/24 Chief Complaint: SBO History of Present Illness: Patient with PMH of atrial fibrillation on Eliquis, admitted with SBO s/p multiple surgeries, cardiology was consulted to help manage her AF, patient is still NPO, denies having chest pain, no LOUISE, report she can feel her AF when she work with PT. Allergies ampicillin Allergy (Verified 09/01/15 14:20) Bleeding gums SULFA (SULFONAMIDES) Allergy (Uncoded 09/01/15 14:20) Rash TETANUS TOXOID Allergy (Uncoded 09/01/15 14:20) Rash Home medications list reviewed: Yes Home Medications: Irbesartan [Avapro] 1 tab PO BEDTIME 09/01/15 Amlodipine [Norvasc*] 1 tab PO DAILY 02/27/24 Apixaban [Eliquis] 1 tab PO BID 02/27/24 Tramadol HCl [Ultram] 1 tab PO QID PRN 02/27/24 Metoprolol Tartrate [Lopressor*] 25 mg PO TID 03/21/24 - Past Medical/Surgical History Diabetic: No -: hip pain -: gerd -: gastritis -: htn -: back, neck pain, neck sprain, bk sprain -: chest wall pain -: abdominal injury -: cholelithiasis -: colon cancer -: Atrial fibrillation -: pulmonary embolism -: Previous -: Tubal ligation -: tonillectomy -: adnoid sx -: ft sx -: sigmoid resection with colostomy - Family History Father History Unknown: Yes Medical History: Cancer Notes: panceatic cancer Mother History Unknown: Yes Medical History: Heart disease, Hypertension - Social History Smoking Status: Former smoker Alcohol use: Yes CD- Drugs: No Caffeine use: Yes Place of Residence: Home Review of Systems 10-point ROS is otherwise unremarkable Physical Examination Temp Pulse Resp BP Pulse Ox 98.6 F 99 H 16 124/79 96 07/25/24 08:00 07/25/24 11:00 07/25/24 11:00 07/25/24 11:00 07/25/24 11:00 General: Alert, In no apparent distress HEENT: Atraumatic, PERRLA, Mucous membr. moist/pink, EOMI, Sclerae nonicteric Neck: Supple, 2+ carotid pulse no bruit, No LAD, Without JVD or thyroid abnormality Respiratory: Clear to auscultation bilaterally, Normal air movement Cardiovascular: Regular rate/rhythm, Normal S1 S2 Gastrointestinal: Normal bowel sounds, No tenderness Musculoskeletal: No tenderness Integumentary: No rashes Neurological: Normal gait, Normal speech, Normal tone, Normal affect Lymphatics: No axilla or inguinal lymphadenopathy - Problems (1) Atrial fibrillation Current Visit: Yes Status: Acute Plan: Patient is currently in sinus tachycardia, patient is still NPO advise to use Metoprolol 2.5 IV q6 hrs PRN for HR more than 120 anticoagulation still on hold due to recent surgery.
[2024-07-25 16:08] LABS: Anion Gap 5.2 mEq/L (5.0-15.0); Phosphorus 2.2 mg/dL (2.5-4.9); Potassium 4.2 mEq/L (3.5-5.1)
[2024-07-25] MEDS ORDERED: AMINO ACIDS 5 %/DEXTROSE 20 % 2,000 ML IV SCH (17:00)
[2024-07-25] MEDS: ENOXAPARIN 40 MG/0.4 ML SQ SCH (17:40)
[2024-07-25] MEDS: Meropenem 1,000 MG in NA CHLORIDE 0.9% 100 ML IV SCH (17:40)
--- NOTE | 2024-07-25 18:11 | P.PN ---
Date of Service: 07/25/24 Subjective: Doing well, stable for downgrade to the floor H/H stable, will continue to monitor ROS: 10 point ROS as noted above, otherwise negative Physical exam GEN: Alert and oriented, NAD HEENT: Normal conjunctiva, sclera anicteric, NGT in place left nare CV: mild tachycardia, no edema Pulm: Nonlabored respirations, on room air, Clear BBS ABD: Soft, mildly distended, mild tenderness generalized, abdominal binder in place, FISH drain in place x 2 with sanguinous drainage-less drainage MSK: No joint tenderness Integumentary: No rashes Neuro: Normal speech, normal affect Vitals reviewed Assessment: Recurrent small bowel obstruction secondary to large complex ventral hernia S/P Diagnostic Laparoscopy, Exploratory Laparotomy, Small Bowel Resection,Exptensive Adhesiolysis 07/[address]ins in place Acute blood loss anemia Hypomagnesemia hypophosphatemia Suspected mild upper GI bleed-resolved Atrial fibrillation on chronic anticoagulation History of pulmonary embolism anticoagulation Hypertension Plan: Recurrent small bowel obstruction secondary to large complex ventral hernia S/P Diagnostic Laparoscopy, Exploratory Laparotomy, Small Bowel Resection,Exptensive Adhesiolysis 07/[address] in place Acute blood loss anemia Suspected mild upper GI bleed-resolved Hypomagnesemia hypophosphatemia Patient's general surgeonDr. Faust consulted and following S/P Diagnostic Laparoscopy, Exploratory Laparotomy, Small Bowel Resection,Expte nsive Adhesiolysis 07/22 NGT inserted in ED, continue on LIWS No further bloody output in NGT FISH drain in place x 2, decreasing sanguinous drainage Hemoglobin around 8 Therapeutic Lovenox still on hold per general surgery-reassess 07/25 PPI stopped 07/23 as recommended by general surgery Continue empiric antibiotics-increased from levaquin/flagyl to merrem 07/24 given worsening leukocytosis Hernia reduced at bedside by Dr. Faust 07/19 Abdominal binder ordered/placed 07/19 TPN started evening 07/22-rate titrated to 50ml/hr today monitor chemistry, mag, Phos Electrolyte protocols in place Atrial fibrillation on chronic anticoagulation History of pulmonary embolism anticoagulation Sanguinous drainage in FISH drains Hemoglobin stable Lovenox started 07/25 Monitor H&H closely Hypertension GERD Continue home medications when tolerating DVT PPX: Lovenox started 10/1 Code status: Full Discharge Plan: Home Plan to discharge in: Greater than 2 days
[2024-07-26 06:41] LABS: Hematocrit 26.3 % (36.0-45.0); Hemoglobin 8.9 g/dL (12.0-15.0); MCH 31.2 pg (27.0-35.0); MCHC 33.7 g/dL (32.0-36.0); MCV 92.8 fL (80-100); MPV 8.3 fL (7.6-11.3); Platelets 201 thou/uL (152-406); RBC Red Blood Cell Count 2.84 M/uL (3.86-4.86); Red Cell Distribution Width 15.4 % (12.1-15.2)
[2024-07-26 06:50] LABS: Anion Gap 6.9 mEq/L (5.0-15.0); Magnesium 1.8 mg/dL (1.6-2.4); Potassium 3.9 mEq/L (3.5-5.1)
[2024-07-26 06:54] LABS: Phosphorus 1.5 mg/dL (2.5-4.9)
[2024-07-26] MEDS ORDERED: SODIUM PHOSPHATE 15 MM in NA CHLORIDE 0.9% 250 ML IV ONE (09:00)
[2024-07-26] MEDS: POTASSIUM PHOS IN 0.9 % NACL 15 MMOL/250 ML BAG IV SCH (09:17)
[2024-07-26] MEDS: PANTOPRAZOLE 40 MG INJ IVP SCH (09:19)
--- NOTE | 2024-07-26 12:08 | P.PN ---
Subjective Date of Service: 07/26/24 Chief Complaint: SBO Subjective: No new changes, No C/O voiced, Tolerating diet, Ambulating, Improving Review of Systems 10-point ROS is otherwise unremarkable Physical Examination - Vital Signs Temperature: 97.0 F Blood Pressure: 128/65 Pulse: 85 Respirations: 15 Pulse Ox (%): 97 - Physical Exam General: Alert, In no apparent distress HEENT: Atraumatic, PERRLA, EOMI Neck: Supple, JVD not distended Respiratory: Clear to auscultation bilaterally, Normal air movement Cardiovascular: Regular rate/rhythm, Normal S1 S2 Gastrointestinal: Normal bowel sounds, No tenderness Musculoskeletal: No tenderness Integumentary: No rashes Neurological: Normal speech, Normal tone, Normal affect Lymphatics: No axilla or inguinal lymphadenopathy - Studies Medications List Reviewed: Yes Assessment And Plan - Current Problems (Diagnosis) (1) Atrial fibrillation Current Visit: Yes Status: Acute Plan: Patient is currently in sinus tachycardia, patient is still NPO advise to use Metoprolol 2.5 IV q6 hrs PRN for HR more than 120 anticoagulation still on hold due to recent surgery.
--- NOTE | 2024-07-26 13:19 | P.PN ---
Date of Service: 07/26/24 Subjective: Awake and conversing well no new complaints, she reports she is waiting for the NGT to come out ROS: 10 point ROS as noted above, otherwise negative Physical exam GEN: AAOx3, NAD, conversing well HEENT: Normal conjunctiva, sclera anicteric, NGT in place left nare CV: mild tachycardia, S1S2 present, no edema Pulm: Nonlabored respirations, on room air, bilaterally clear breath sounds ABD: Soft on palpation, mildly distended, mild tenderness generalized, abdominal binder in place, FISH drain in place x 2 with sanguinous drainage-less drainage MSK: No joint tenderness Integumentary: No rashes Neuro: Normal speech, normal affect Vitals reviewed Assessment: Recurrent small bowel obstruction secondary to large complex ventral hernia S/P Diagnostic Laparoscopy, Exploratory Laparotomy, Small Bowel Resection,Exptensive Adhesiolysis 07/[address] drains in place Acute blood loss anemia Hypomagnesemia hypophosphatemia Suspected mild upper GI bleed-resolved Atrial fibrillation on chronic anticoagulation History of pulmonary embolism anticoagulation Hypertension Plan: Recurrent small bowel obstruction secondary to large complex ventral hernia S/P Diagnostic Laparoscopy, Exploratory Laparotomy, Small Bowel Resection,Exptensive Adhesiolysis 07/[address] with [address] drains in place Acute blood loss anemia Suspected mild upper GI bleed-resolved Hypomagnesemia hypophosphatemia Patient's general surgeonDr. Faust consulted and following S/P Diagnostic Laparoscopy, Exploratory Laparotomy, Small Bowel Resection,Exptensive Adhesiolysis 07/22 NGT inserted in ED, continue on LIWS No further bloody output in NGT FISH drain in place x 2, decreasing sanguinous drainage Hemoglobin around 8 Therapeutic Lovenox still on hold per general surgery-reassess 07/25 PPI stopped 07/23 as recommended by general surgery Continue empiric antibiotics-increased from levaquin/flagyl to merrem 07/24 given worsening leukocytosis Hernia reduced at bedside by Dr. Faust 07/19 Abdominal binder ordered/placed 07/19 TPN started evening 07/22 Continue to monitor chemistry, mag, Phos, phosphate continues to be low Electrolyte protocols in place Atrial fibrillation on chronic anticoagulation History of pulmonary embolism anticoagulation Sanguinous drainage in FISH drains Hemoglobin stable Lovenox started 07/25 Continue to Monitor H&H closely Hypertension GERD Continue home medications when tolerating DVT PPX: Lovenox started 07/25 Code status: Full Discharge Plan: Home Plan to discharge in: Greater than 2 days <ZacharyLaura - Last Filed: 07/26/24 14:43> Patient seen and examined. Plan of care discussed with Ms. Sharma. Patient denies any flatus. She complains of abdominal pain. Hemoglobin has been relatively stable. Continue empiric antibiotics. Given history of atrial fibrillation and pulm embolism, will need to resume her anticoagulation as soon as feasible. Dr. Faust recommend prophylactic dose Lovenox for now. Monitor H&H. Cardiology is following and managing atrial fibrillation. <humphrey monk - Last Filed: 07/30/24 17:13>
[2024-07-27 04:39] LABS: Hematocrit 25.1 % (36.0-45.0); Hemoglobin 8.6 g/dL (12.0-15.0); MCH 31.9 pg (27.0-35.0); MCHC 34.5 g/dL (32.0-36.0); MCV 92.6 fL (80-100); MPV 7.8 fL (7.6-11.3); Platelets 220 thou/uL (152-406); RBC Red Blood Cell Count 2.71 M/uL (3.86-4.86); Red Cell Distribution Width 15.3 % (12.1-15.2)
[2024-07-27 04:48] LABS: Anion Gap 5.9 mEq/L (5.0-15.0); Magnesium 1.7 mg/dL (1.6-2.4); Phosphorus 1.7 mg/dL (2.5-4.9); Potassium 3.9 mEq/L (3.5-5.1)
[2024-07-27] MEDS: MAGNESIUM SULFATE 1 gm IVPB 1 GM/100 ML BAG IV ONE (08:19)
[2024-07-27] MEDS: POTASSIUM PHOS IN 0.9 % NACL 15 MMOL/250 ML BAG IV SCH (08:20)
--- NOTE | 2024-07-27 14:44 | P.PN ---
Date of Service: 07/27/24 Subjective: Sleeping comfortably, easily awakens Hemodynamically stable ROS: 10 point ROS as noted above, otherwise negative Physical exam GEN: Sleeping, Alert and oriented x3, NAD, conversing well HEENT: Normal conjunctiva, sclera anicteric, NGT in place left nare CV: mild tachycardia, S1 S2 present, no edema Pulm: Nonlabored respirations, on room air, Clear BBS ABD: Soft on palpation, mildly distended, mild tenderness generalized, abdominal binder in place, FISH drain in place x 2 with sanguinous drainage-less drainage MSK: No joint tenderness Integumentary: No rashes Neuro: Normal speech, normal affect Vitals reviewed Assessment: Recurrent small bowel obstruction secondary to large complex ventral hernia S/P Diagnostic Laparoscopy, Exploratory Laparotomy, Small Bowel Resection,Exptensive Adhesiolysis 07/[address] drains in place Acute blood loss anemia Hypomagnesemia hypophosphatemia Suspected mild upper GI bleed-resolved Atrial fibrillation on chronic anticoagulation History of pulmonary embolism anticoagulation Hypertension Plan: Recurrent small bowel obstruction secondary to large complex ventral hernia S/P Diagnostic Laparoscopy, Exploratory Laparotomy, Small Bowel Resection,Exptensive Adhesiolysis 07/[address] drains in place Acute blood loss anemia Suspected mild upper GI bleed-resolved Hypomagnesemia hypophosphatemia Patient's general surgeonDr. Faust consulted and following S/P Diagnostic Laparoscopy, Exploratory Laparotomy, Small Bowel Resection,Exptensive Adhesiolysis 07/22 NGT clamped No further bloody output in NGT FISH drain in place x 2, decreasing sanguinous drainage Hemoglobin around 8, Stable Therapeutic Lovenox still on hold per general surgery-reassess 07/25 PPI stopped 07/23 as recommended by general surgery Continue empiric antibiotics-increased from levaquin/flagyl to merrem 07/24 given worsening leukocytosis Hernia reduced at bedside by Dr. Faust 07/19 Abdominal binder ordered/placed 07/19 Continue TPN started evening 07/22 Continue to monitor chemistry, mag, Phos, phosphate continues to be low Electrolyte protocols in place Atrial fibrillation on chronic anticoagulation History of pulmonary embolism anticoagulation Sanguinous drainage in FISH drains Hemoglobin stable Lovenox started 07/25 Continue to Monitor H&H closely Hypertension GERD Continue home medications when tolerating DVT PPX: Lovenox started 07/25 Code status: Full Discharge Plan: Home Plan to discharge in: Greater than 2 days
[2024-07-28 05:57] LABS: Hematocrit 25.6 % (36.0-45.0); MCH 32.1 pg (27.0-35.0); MCV 91.6 fL (80-100); MPV 7.7 fL (7.6-11.3); Platelets 266 thou/uL (152-406); Red Cell Distribution Width 15.2 % (12.1-15.2)
[2024-07-28 06:08] LABS: Anion Gap 5.8 mEq/L (5.0-15.0); Magnesium 2.1 mg/dL (1.6-2.4); Phosphorus 2.1 mg/dL (2.5-4.9); Potassium 3.8 mEq/L (3.5-5.1)
--- NOTE | 2024-07-28 16:26 | P.PN ---
Date of Service: 07/28/24 Subjective: Awake, sitting in the chair Reports feeling weak but willing to work with therapy no BM or flatulence yet NGT to LIWS ROS: 10 point ROS as noted above, otherwise negative Physical exam GEN: Awake, Alert and oriented x3, NAD, conversing well HEENT: Normal conjunctiva, sclera anicteric, NGT in place left nare CV: mild tachycardia, S1 S2 present, no edema Pulm: Nonlabored respirations, on room air, Clear BBS ABD: Soft on palpation, mildly distended, mild tenderness generalized, abdominal binder in place, FISH drain in place x 2 with sanguinous drainage-less drainage MSK: No joint tenderness Integumentary: No rashes Neuro: Normal speech, normal affect Vitals reviewed Assessment: Recurrent small bowel obstruction secondary to large complex ventral hernia S/P Diagnostic Laparoscopy, Exploratory Laparotomy, Small Bowel Resection,Exptensive Adhesiolysis 07/[address] with [address] drains in place Acute blood loss anemia Hypomagnesemia hypophosphatemia Suspected mild upper GI bleed-resolved Atrial fibrillation on chronic anticoagulation History of pulmonary embolism anticoagulation Hypertension Plan: Recurrent small bowel obstruction secondary to large complex ventral hernia S/P Diagnostic Laparoscopy, Exploratory Laparotomy, Small Bowel Resection,Exptensive Adhesiolysis 07/[address] with FISH drains in place Acute blood loss anemia Suspected mild upper GI bleed-resolved Hypomagnesemia hypophosphatemia Patient's general surgeonDr. Faust consulted and following S/P Diagnostic Laparoscopy, Exploratory Laparotomy, Small Bowel Resection,Exptensive Adhesiolysis 07/22 NGT LIWS, correction: not clamped No further bloody output in NGT FISH drain in place x 2, decreasing sanguinous drainage Hemoglobin 9, improved and stable Therapeutic Lovenox still on hold per general surgery-reassess 07/25 PPI stopped 07/23 as recommended by general surgery Continue empiric antibiotics-increased from levaquin/flagyl to merrem 07/24 given worsening leukocytosis Hernia reduced at bedside by Dr. Faust 07/19 Abdominal binder ordered/placed 07/19 Continue TPN started evening 07/22 Continue to monitor chemistry, mag, Phos, phosphate continues to be low Electrolyte protocols in place Atrial fibrillation on chronic anticoagulation History of pulmonary embolism anticoagulation Sanguinous drainage in FISH drains Hemoglobin stable Lovenox started 07/25 Continue to Monitor H&H closely Hypertension GERD Continue home medications when tolerating DVT PPX: Lovenox started 07/25 Code status: Full Discharge Plan: Home Plan to discharge in: Greater than 2 days
[2024-07-29 06:33] LABS: Absolute Eosinophils 0.3 K/uL (0-0.5); Absolute Lymphocytes (CBC) 0.7 K/uL (0.7-4.9); Absolute Monocytes 0.8 K/uL (0.1-1.3); Absolute Neutrophil 5.7 K/uL (1.8-8.0); Basophils % 0.4 % (0-1.3); Eosinophils % 4.4 % (0-4.4); Hematocrit 24.6 % (36.0-45.0); Hemoglobin 8.5 g/dL (12.0-15.0); Lymphocytes % 8.9 % (15.3-44.8); MCH 31.8 pg (27.0-35.0); MCHC 34.6 g/dL (32.0-36.0); MPV 7.5 fL (7.6-11.3); Monocytes % 10.8 % (3.3-12.3); Neutrophils % 75.5 % (41.7-73.7); Nucleated Red Blood Cells % 0.1 % (0-0); Platelets 300 thou/uL (152-406); RBC Red Blood Cell Count 2.67 M/uL (3.86-4.86); Red Cell Distribution Width 14.9 % (12.1-15.2)
[2024-07-29 06:47] LABS: Anion Gap 5.7 mEq/L (5.0-15.0); Magnesium 2.1 mg/dL (1.6-2.4); Phosphorus 2.2 mg/dL (2.5-4.9); Potassium 3.7 mEq/L (3.5-5.1)
--- NOTE | 2024-07-29 10:50 | P.PN ---
Date of Service: 07/29/24 Subjective: awake, conversing well No BM of flatulance hypoactive bowel sounds NGT to LIWS ROS: 10 point ROS as noted above, otherwise negative Physical exam GEN: AAO x3, NAD, conversing well HEENT: Normal conjunctiva, sclera anicteric, NGT in place left nare CV: mild tachycardia, S1 S2 present, no edema Pulm: Nonlabored respirations, bilaterally clear breath sounds, on room air ABD: Soft on palpation, mildly distended, mild tenderness generalized, abdominal binder in place, FISH drain in place x 2 with sanguinous drainage-less drainage MSK: No joint tenderness, 2+ peripheral pulses Integumentary: No rashes Neuro: Normal speech, normal affect Vitals reviewed Assessment: Recurrent small bowel obstruction secondary to large complex ventral hernia S/P Diagnostic Laparoscopy, Exploratory Laparotomy, Small Bowel Resection,Exptensive Adhesiolysis 07/[address] with [address] drains in place Acute blood loss anemia Hypomagnesemia hypophosphatemia Suspected mild upper GI bleed-resolved Atrial fibrillation on chronic anticoagulation History of pulmonary embolism anticoagulation Hypertension Plan: Recurrent small bowel obstruction secondary to large complex ventral hernia S/P Diagnostic Laparoscopy, Exploratory Laparotomy, Small Bowel Resection,Exptensive Adhesiolysis 07/22 with FISH drains in place Acute blood loss anemia Suspected mild upper GI bleed-resolved Hypomagnesemia hypophosphatemia Patient's general surgeonDr. Faust consulted and following S/P Diagnostic Laparoscopy, Exploratory Laparotomy, Small Bowel Resection, Extensive Adhesiolysis 07/22 NGT LIWS No further bloody output in NGT FISH drain in place x 2, decreasing sanguinous drainage Hemoglobin 8.5, improved and stable Therapeutic Lovenox held until 07/25 PPI stopped 07/23 as recommended by general surgery levaquin/flagyl changed to merrem 07/24 given worsening leukocytosis Continue Merrem (07/24) Hernia reduced at bedside by Dr. Faust 07/[address] since 07/19 Continue TPN started evening 07/22 Continue to monitor chemistry, mag, Phos, phosphate continues to be low Electrolyte protocols in place Atrial fibrillation on chronic anticoagulation History of pulmonary embolism anticoagulation Sanguinous drainage in FISH drains Hemoglobin stable Lovenox started 07/25 Continue to Monitor H&H closely Hypertension GERD Continue home medications when tolerating DVT PPX: Lovenox started 07/25 Code status: Full Discharge Plan: Home Plan to discharge in: Greater than 2 days <Laura Sharma - Last Filed: 07/29/24 10:40> Patient report persistent abdominal pain. She denies any flatus or BM. On abdominal examination: Hypoactive bowel sounds. Case discussed with Dr. Faust. Continue TPN Continue antibiotics Analgesics as needed. Dr. Ortez is covering over the weekend. May consider NG tube clamping to assess output followed by removal if output is minimal. Continue PT. Patient is being evaluated for inpatient rehab. <humphrey monk - Last Filed: 07/29/24 18:32>
[2024-07-30 07:15] LABS: Absolute Eosinophils 0.3 K/uL (0-0.5); Absolute Lymphocytes (CBC) 0.6 K/uL (0.7-4.9); Absolute Monocytes 0.8 K/uL (0.1-1.3); Absolute Neutrophil 5.8 K/uL (1.8-8.0); Basophils % 0.3 % (0-1.3); Eosinophils % 4.6 % (0-4.4); Hematocrit 26.2 % (36.0-45.0); Hemoglobin 8.7 g/dL (12.0-15.0); Lymphocytes % 7.7 % (15.3-44.8); MCH 30.8 pg (27.0-35.0); MCHC 33.2 g/dL (32.0-36.0); MCV 92.8 fL (80-100); MPV 8.1 fL (7.6-11.3); Monocytes % 10.9 % (3.3-12.3); Neutrophils % 76.5 % (41.7-73.7); Nucleated Red Blood Cells % 0.1 % (0-0); Platelets 330 thou/uL (152-406); RBC Red Blood Cell Count 2.83 M/uL (3.86-4.86); Red Cell Distribution Width 14.6 % (12.1-15.2)
[2024-07-30 07:19] LABS: Anion Gap 5.5 mEq/L (5.0-15.0); Phosphorus 2.1 mg/dL (2.5-4.9); Potassium 3.5 mEq/L (3.5-5.1)
--- NOTE | 2024-07-30 07:25 | P.PN ---
Date of Service: 07/30/24 Subjective: Sleeping but awakens easily sharp pain to left abdomen NGT clamped for four hours, unclamped to give relief ROS: 10 point ROS as noted above, otherwise negative Physical exam GEN: AAO x3, NAD, conversing well HEENT: Normal conjunctiva, sclera anicteric, NGT in place left nare CV: Normal sinus rhythm, S1 S2 present, no edema Pulm: Nonlabored respirations, bilaterally clear breath sounds, 2LNC ABD: Soft on palpation, midline incision clean and dry, mild tenderness generalized, abdominal binder in place, FISH drain in place x 2 with sanguinous drainage-less drainage MSK: No joint tenderness, 2+ peripheral pulses Integumentary: No rashes Neuro: Normal speech, normal affect Vitals reviewed Assessment: Recurrent small bowel obstruction secondary to large complex ventral hernia S/P Diagnostic Laparoscopy, Exploratory Laparotomy, Small Bowel Resection,Exptensive Adhesiolysis 07/[address] in place Acute blood loss anemia Hypomagnesemia hypophosphatemia Suspected mild upper GI bleed-resolved Atrial fibrillation on chronic anticoagulation History of pulmonary embolism anticoagulation Hypertension Plan: Recurrent small bowel obstruction secondary to large complex ventral hernia S/P Diagnostic Laparoscopy, Exploratory Laparotomy, Small Bowel Resection,Exptensive Adhesiolysis 07/[address] with FISH drains in place Acute blood loss anemia Suspected mild upper GI bleed-resolved Hypomagnesemia hypophosphatemia Patient's general surgeonDr. Faust consulted and following S/P Diagnostic Laparoscopy, Exploratory Laparotomy, Small Bowel Resection, Extensive Adhesiolysis 07/22 NGT attempted clamp for four hours then caused discomfort, back on LIWS No further bloody output in NGT FISH drain in place x 2, decreasing sanguinous drainage Hemoglobin 8.7, improved and stable Therapeutic Lovenox held until 07/25 PPI stopped 07/23 as recommended by general surgery levaquin/flagyl changed to merrem 07/24 given worsening leukocytosis Continue Merrem (07/24) Hernia reduced at bedside by Dr. Faust 07/[address] since 07/19 Continue TPN started evening 07/22 Continue to monitor chemistry, mag, Phos, phosphate continues to be low Electrolyte protocols in place Continue TPN Atrial fibrillation on chronic anticoagulation History of pulmonary embolism anticoagulation Sanguinous drainage in FISH drains Hemoglobin stable Lovenox started 07/25 Continue to Monitor H&H closely Continuous telemetry showing NSR with controlled HR Hypertension GERD Continue home medications when tolerating DVT PPX: Lovenox started 07/25 Code status: Full Discharge Plan: Home Plan to discharge in: Greater than 2 days
[2024-07-30] MEDS ORDERED: POTASSIUM PHOS IN 0.9 % NACL 15 MMOL/250 ML BAG IV ONE (09:00)
[2024-07-30] MEDS: POTASSIUM PHOS IN 0.9 % NACL 15 MMOL/250 ML BAG IV SCH (09:20)
[2024-07-30] MEDS: HYDROMORPHONE HCL 1 MG/ML INJ IV PRN (14:00)
[2024-07-30] MEDS: APIXABAN 5 MG TABLET PO SCH (20:12)
[2024-07-31 05:50] LABS: Absolute Eosinophils 0.3 K/uL (0-0.5); Absolute Lymphocytes (CBC) 0.7 K/uL (0.7-4.9); Absolute Monocytes 0.7 K/uL (0.1-1.3); Absolute Neutrophil 4.6 K/uL (1.8-8.0); Basophils % 0.5 % (0-1.3); Eosinophils % 4.9 % (0-4.4); Hematocrit 24.5 % (36.0-45.0); Hemoglobin 8.3 g/dL (12.0-15.0); Lymphocytes % 10.5 % (15.3-44.8); MCH 32.2 pg (27.0-35.0); MCHC 33.8 g/dL (32.0-36.0); MCV 95.1 fL (80-100); MPV 7.9 fL (7.6-11.3); Monocytes % 10.6 % (3.3-12.3); Neutrophils % 73.5 % (41.7-73.7); Nucleated Red Blood Cells % 0.1 % (0-0); Platelets 350 thou/uL (152-406); RBC Red Blood Cell Count 2.58 M/uL (3.86-4.86); Red Cell Distribution Width 14.8 % (12.1-15.2)
[2024-07-31 08:24] LABS: Potassium 3.6 mEq/L (3.5-5.1)
[2024-07-31 08:29] LABS: Anion Gap 6.6 mEq/L (5.0-15.0)
[2024-07-31 08:32] LABS: Phosphorus 2.3 mg/dL (2.5-4.9)
--- NOTE | 2024-07-31 11:16 | RAD REPORT ---
EXAM: AP view(s) of the abdomen Abdomen 1 View (KUB) HISTORY: abdominal pain COMPARISON: 07/22/2024 FINDINGS: The bowel gas pattern is nonobstructive.. No suspicious calcifications are seen. No acute o sseous abnormality. Enteric tube overlying the stomach. Laparotomy defect. Surgical drain overlies the lower pelvis. Chain suture in the left lower quadrant. IMPRESSION: No evidence of bowel obstruction. Interval laparotomy.
--- NOTE | 2024-07-31 12:52 | P.PN ---
Date of Service: 07/31/24 Subjective: Awake and feeling well NGT unclamped with minimal Gastric output NGT clamped for four hours, unclamped to give relief ROS: 10 point ROS as noted above, otherwise negative Physical exam GEN: Alert and oriented x3, NAD, conversing well HEENT: Normal conjunctiva, sclera anicteric, NGT in place left nare CV: NSR, S1 S2 present, no murmur noted, no edema Pulm: Nonlabored respirations, bilaterally clear breath sounds, 2LNC ABD: Soft on palpation, mild tenderness generalized, midline incision clean and dry, Hypoactive Bowel Sounds, abdominal binder in place, FISH drain in place x 2 with sanguinous drainage-less drainage MSK: No joint tenderness, 2+ peripheral pulses Integumentary: No rashes Neuro: Normal speech, normal affect Vitals reviewed Assessment: Recurrent small bowel obstruction secondary to large complex ventral hernia S/P Diagnostic Laparoscopy, Exploratory Laparotomy, Small Bowel Resection,Exptensive Adhesiolysis 07/[address] in place Acute blood loss anemia Hypomagnesemia hypophosphatemia Suspected mild upper GI bleed-resolved Atrial fibrillation on chronic anticoagulation History of pulmonary embolism anticoagulation Hypertension Plan: Recurrent small bowel obstruction secondary to large complex ventral hernia S/P Diagnostic Laparoscopy, Exploratory Laparotomy, Small Bowel Resection,Exptensive Adhesiolysis 07/[address]ins in place Acute blood loss anemia Suspected mild upper GI bleed-resolved Hypomagnesemia hypophosphatemia -Patient's general surgeonDr. Faust consulted and following -S/P Diagnostic Laparoscopy, Exploratory Laparotomy, Small Bowel Resection, Extensive Adhesiolysis 07/22 -07/31 KUB reports FINDINGS: The bowel gas pattern is nonobstructive. No suspicious calcifications are seen. No acute osseous abnormality. Enteric tube - overlying the stomach. Laparotomy defect. Surgical drain overlies the lower pelvis. Chain suture in the left lower quadrant. IMPRESSION: No evidence of bowel obstruction. Interval laparotomy. -NGT attempted clamp for four hours then caused discomfort, back on LIWS -No further bloody output in NGT -FISH drain in place x 2, decreasing sanguinous drainage -Hemoglobin 8.7, improved and stable -Therapeutic Lovenox held until 07/25 -PPI stopped 07/23 as recommended by general surgery -levaquin/flagyl changed to merrem 07/24 given worsening leukocytosis -Continue Merrem (07/24) -Hernia reduced at bedside by Dr. Faust 07/19 -Abdominal binder in place since 07/19 -Continue TPN started evening 07/22 -Continue to monitor chemistry, mag, Phos, phosphate continues to be low -Electrolyte protocols in place -Continue TPN Atrial fibrillation on chronic anticoagulation History of pulmonary embolism anticoagulation -Sanguinous drainage in FISH drains -Hemoglobin stable -Lovenox started 07/25 -Continue to Monitor H&H closely -Continuous telemetry showing NSR with controlled HR Hypertension GERD -Continue home medications when tolerating DVT PPX: Lovenox started 07/25 Code status: Full Discharge Plan: Home Plan to discharge in: Greater than 2 days <Laura Sharma - Last Filed: 07/31/24 12:33> Patient seen and examined, plan of care discussed with Ms. Sharma. Patient did not tolerate NG tube clamping yesterday. NG tube output after the clamp was released is not available. 400 mL bile colored fluid drained from NGT overnight. Patient endorsed flatus. Continue NG tube to suction Continue TPN General Surgery Dr. Faust to follow. Resume anticoagulation with full dose Lovenox. <humphrey monk - Last Filed: 07/31/24 18:21>
[2024-07-31] MEDS: ENOXAPARIN 100 MG/ML SYR SQ SCH (19:50)
[2024-08-01 05:29] LABS: Absolute Eosinophils 0.4 K/uL (0-0.5); Absolute Lymphocytes (CBC) 0.9 K/uL (0.7-4.9); Absolute Monocytes 0.7 K/uL (0.1-1.3); Absolute Neutrophil 5.5 K/uL (1.8-8.0); Basophils % 0.6 % (0-1.3); Eosinophils % 4.7 % (0-4.4); Hematocrit 25.9 % (36.0-45.0); Hemoglobin 8.5 g/dL (12.0-15.0); Lymphocytes % 12.2 % (15.3-44.8); MCH 30.3 pg (27.0-35.0); MCHC 32.8 g/dL (32.0-36.0); MCV 92.2 fL (80-100); MPV 7.8 fL (7.6-11.3); Monocytes % 8.9 % (3.3-12.3); Neutrophils % 73.6 % (41.7-73.7); Platelets 400 thou/uL (152-406); RBC Red Blood Cell Count 2.81 M/uL (3.86-4.86); Red Cell Distribution Width 14.5 % (12.1-15.2)
[2024-08-01 05:41] LABS: Anion Gap 5.3 mEq/L (5.0-15.0); Magnesium 1.9 mg/dL (1.6-2.4); Phosphorus 2.1 mg/dL (2.5-4.9); Potassium 3.3 mEq/L (3.5-5.1)
--- NOTE | 2024-08-01 11:50 | P.PN ---
Subjective Date of Service: 08/01/24 Chief Complaint: SBO Subjective: No new changes, No C/O voiced, Tolerating diet, Ambulating, Improving Review of Systems 10-point ROS is otherwise unremarkable Physical Examination - Vital Signs Temperature: 98.6 F Blood Pressure: 129/69 Pulse: 79 Respirations: 16 Pulse Ox (%): 99 - Physical Exam General: Alert, In no apparent distress HEENT: Atraumatic, PERRLA, EOMI Neck: Supple, JVD not distended Respiratory: Clear to auscultation bilaterally, Normal air movement Cardiovascular: Regular rate/rhythm, Normal S1 S2 Gastrointestinal: Normal bowel sounds, No tenderness Musculoskeletal: No tenderness Integumentary: No rashes Neurological: Normal speech, Normal tone, Normal affect Lymphatics: No axilla or inguinal lymphadenopathy - Studies Medications List Reviewed: Yes Assessment And Plan - Current Problems (Diagnosis) (1) Atrial fibrillation Current Visit: Yes Status: Acute Plan: Patient is currently in sinus rhythm, patient is still NPO advise to use Metoprolol 2.5 IV q6 hrs PRN for HR more than 120 Patient is on therapeutic lovenox, monitor for bleeding and resume Eliquis 5 mg BID once cleared by oral intake.
--- NOTE | 2024-08-01 12:11 | P.PN ---
Date of Service: 08/01/24 Subjective: Awake and feeling well Trialed NGT clamp yesterday but patient could not tolerate NGT back to LIWS No acute events overnight, still on TPN ROS: 10 point ROS as noted above, otherwise negative Physical exam GEN: Alert and oriented x3, NAD, conversing well HEENT: Normal conjunctiva, sclera anicteric, NGT in place left nare CV: NSR, S1 S2 present, no murmur noted, no edema Pulm: Nonlabored respirations, bilaterally clear breath sounds, 2LNC ABD: Soft on palpation, mild tenderness generalized, midline incision clean and dry, Hypoactive Bowel Sounds, abdominal binder in place, FISH drain in place x 2 with sanguinous drainage-small amount MSK: No joint tenderness, 2+ peripheral pulses Integumentary: No rashes Neuro: Normal speech, normal affect Vitals reviewed Assessment: Recurrent small bowel obstruction secondary to large complex ventral hernia S/P Diagnostic Laparoscopy, Exploratory Laparotomy, Small Bowel Resection,Exptensive Adhesiolysis 07/[address] in place Acute blood loss anemia Hypomagnesemia hypophosphatemia Suspected mild upper GI bleed-resolved Atrial fibrillation on chronic anticoagulation History of pulmonary embolism anticoagulation Hypertension Plan: Recurrent small bowel obstruction secondary to large complex ventral hernia S/P Diagnostic Laparoscopy, Exploratory Laparotomy, Small Bowel Resection,Exptensive Adhesiolysis 07/[address] drains in place Acute blood loss anemia Suspected mild upper GI bleed-resolved Hypomagnesemia hypophosphatemia -Patient's general surgeonDr. Faust consulted and following -S/P Diagnostic Laparoscopy, Exploratory Laparotomy, Small Bowel Resection, Extensive Adhesiolysis 07/22 -NGT attempted clamp for four hours then caused discomfort, back on LIWS -No further bloody output in NGT -FISH drain in place x 2, decreasing sanguinous drainage -Hemoglobin stable -Therapeutic Lovenox resumed 07/25 -PPI stopped 07/23 as recommended by general surgery -levaquin/flagyl changed to merrem 07/24 given worsening leukocytosis -Continue Merrem (07/24) -Continue TPN -Continue to monitor chemistry, mag, Phos -Electrolyte protocols in place -+flatus, small liquid BM overnight 07/31 -Plan for inpatient rehab at [place] Atrial fibrillation on chronic anticoagulation History of pulmonary embolism anticoagulation -Small amount Sanguinous drainage in FISH drains -Hemoglobin stable -Lovenox started 07/25 -Resume eliquis when able to take PO -Continue to Monitor H&H closely -Continuous telemetry showing NSR with controlled HR Hypertension GERD -Continue home medications when tolerating DVT PPX: Lovenox started 07/25 Code status: Full Dispo-Inpatient rehab 2-3 days
[2024-08-01] MEDS: DOCUSATE NA 100 MG CAP PO SCH (20:39)
[2024-08-02 05:09] LABS: Absolute Eosinophils 0.2 K/uL (0-0.5); Absolute Lymphocytes (CBC) 0.5 K/uL (0.7-4.9); Absolute Monocytes 0.6 K/uL (0.1-1.3); Absolute Neutrophil 7.6 K/uL (1.8-8.0); Basophils % 0.4 % (0-1.3); Eosinophils % 2.1 % (0-4.4); Hematocrit 24.2 % (36.0-45.0); Hemoglobin 8.4 g/dL (12.0-15.0); Lymphocytes % 5.4 % (15.3-44.8); MCH 31.4 pg (27.0-35.0); MCHC 34.5 g/dL (32.0-36.0); MCV 91.1 fL (80-100); MPV 7.4 fL (7.6-11.3); Monocytes % 6.7 % (3.3-12.3); Neutrophils % 85.4 % (41.7-73.7); Nucleated Red Blood Cells % 0.1 % (0-0); Platelets 430 thou/uL (152-406); RBC Red Blood Cell Count 2.66 M/uL (3.86-4.86); Red Cell Distribution Width 14.6 % (12.1-15.2)
[2024-08-02 05:23] LABS: Anion Gap 7.4 mEq/L (5.0-15.0); Magnesium 1.9 mg/dL (1.6-2.4); Phosphorus 1.8 mg/dL (2.5-4.9); Potassium 3.4 mEq/L (3.5-5.1)
[2024-08-02 07:47] VITALS: BMI 35.0
[2024-08-02 08:57] LABS: Platelet Estimate ADEQ; White Blood Cell Scan OK (OK)
[2024-08-02 08:58] LABS: Blood Morphology Comment NOT SEEN (NOT SEEN)
[2024-08-02] MEDS: POTASSIUM CL SA 10 MEQ TAB PO ONE (09:00)
--- NOTE | 2024-08-02 09:06 | P.PN ---
Date of Service: 08/02/24 Subjective: Awake and feeling well NGT removed by surgery yesterday Tolerated clear liquids last night and had a BM ROS: 10 point ROS as noted above, otherwise negative Physical exam GEN: Alert and oriented x3, NAD, conversing well HEENT: Normal conjunctiva, sclera anicteric, CV: NSR, S1 S2 present, no murmur noted, no edema Pulm: Nonlabored respirations, bilaterally clear breath sounds, 2LNC ABD: Soft on palpation, mild tenderness generalized, midline incision clean and dry, Hypoactive Bowel Sounds, abdominal binder in place, FISH drain in place x 2 with sanguinous drainage-small amount MSK: No joint tenderness, 2+ peripheral pulses Integumentary: No rashes Neuro: Normal speech, normal affect Vitals reviewed Assessment: Recurrent small bowel obstruction secondary to large complex ventral hernia S/P Diagnostic Laparoscopy, Exploratory Laparotomy, Small Bowel Resection,Exptensive Adhesiolysis 07/22 with [address] drains in place Acute blood loss anemia Hypomagnesemia hypophosphatemia Suspected mild upper GI bleed-resolved Atrial fibrillation on chronic anticoagulation History of pulmonary embolism anticoagulation Hypertension Plan: Recurrent small bowel obstruction secondary to large complex ventral hernia S/P Diagnostic Laparoscopy, Exploratory Laparotomy, Small Bowel Resection,Exptensive Adhesiolysis 07/22 with FISH drains in place Acute blood loss anemia Suspected mild upper GI bleed-resolved Hypomagnesemia hypophosphatemia -Patient's general surgeonDr. Faust consulted and following -S/P Diagnostic Laparoscopy, Exploratory Laparotomy, Small Bowel Resection, Extensive Adhesiolysis 07/22 -NGT removed 08/01 evening -Had BM 08/01 and tolerated some clear liquids -FISH drain in place x 2, decreasing sanguinous drainage- surgery planning on removing soon -Hemoglobin stable -Therapeutic Lovenox resumed 07/25 -levaquin/flagyl changed to merrem 07/24 given worsening leukocytosis -Continue Merrem (07/24) -Continue TPN- if continuing to tolerate PO will DC -Continue to monitor chemistry, mag, Phos -Electrolyte protocols in place -Plan for inpatient rehab at [place] Atrial fibrillation on chronic anticoagulation History of pulmonary embolism anticoagulation -Small amount Sanguinous drainage in FISH drains -Hemoglobin stable -Lovenox started 07/25 -Resume eliquis when able to take PO -Continue to Monitor H&H closely -Continuous telemetry showing NSR with controlled HR Hypertension GERD -Continue home medications when tolerating DVT PPX: Lovenox started 07/25 Code status: Full Dispo-Inpatient rehab 2-3 days
[2024-08-02] MEDS: MAGNESIUM SULFATE 1 gm IVPB 1 GM/100 ML BAG IV ONE (09:20)
[2024-08-03 06:36] LABS: Absolute Eosinophils 0.3 K/uL (0-0.5); Absolute Lymphocytes (CBC) 1.1 K/uL (0.7-4.9); Absolute Monocytes 0.6 K/uL (0.1-1.3); Absolute Neutrophil 5.5 K/uL (1.8-8.0); Basophils % 0.6 % (0-1.3); Hematocrit 23.8 % (36.0-45.0); Hemoglobin 8.3 g/dL (12.0-15.0); MCH 31.7 pg (27.0-35.0); MCHC 34.8 g/dL (32.0-36.0); MCV 90.9 fL (80-100); MPV 7.7 fL (7.6-11.3); Monocytes % 8.1 % (3.3-12.3); Neutrophils % 73.3 % (41.7-73.7); Platelets 446 thou/uL (152-406); RBC Red Blood Cell Count 2.62 M/uL (3.86-4.86); Red Cell Distribution Width 14.6 % (12.1-15.2)
[2024-08-03 06:52] LABS: Anion Gap 7.5 mEq/L (5.0-15.0); Magnesium 2.1 mg/dL (1.6-2.4); Phosphorus 1.8 mg/dL (2.5-4.9); Potassium 3.5 mEq/L (3.5-5.1)
[2024-08-03 07:52] VITALS: O2SAT 94
[2024-08-03] MEDS: POTASS/SODIUM PHOSPHATE 1 PKT POWD.PACK PO SCH (09:41)
--- NOTE | 2024-08-03 13:42 | P.DS ---
Admission Date: 07/18/24 Discharge Date: 08/03/24 Disposition: TRANSFER TO INPATIENT REHAB Discharge Condition: GOOD Reason for Admission: SBO Consultations: General surgery- Dr. faust Brief History of Present Illness: 83-year-old female with history of atrial fibrillation on chronic anticoagulation, pulmonary embolism, multiple bowel obstructions with known large complex ventral hernia presents emergency department chief complaint of abdominal pain, nausea/vomiting. She reports her symptoms similar to previous small bowel obstruction she has had, she had seen her general surgeon Dr. Faust a little over a week ago and they discussed options for possible surgery versus more conservative measures. At that time they had chosen not to move forward with surgery. Patient was evaluated in the emergency department her labs are significant for a white blood cell count of 10 creatinine 1.07 GFR [address] abdomen pelvis with IV contrast was performed which showed recurrent small bowel obst ruction related to a large complex ventral abdominal hernia. Case was discussed with patient's general surgeryDr. Faust who will consult, NGT was placed in the emergency department. Patient was noted to have some maroon/bloody output from her NG tube while in the ED. she will be admitted for further evaluation and management of recurrent small bowel obstruction. Hospital Course: Assessment: Recurrent small bowel obstruction secondary to large complex ventral hernia S/P Diagnostic Laparoscopy, Exploratory Laparotomy, Small Bowel Resec tion,Exptensive Adhesiolysis 07/[address]ins in place Acute blood loss anemia Hypomagnesemia hypophosphatemia Suspected mild upper GI bleed-resolved Atrial fibrillation on chronic anticoagulation History of pulmonary embolism anticoagulation Hypertension Patient was admitted to the hospital for a small bowel obstruction. She did not improve with medical management including an NG tube. On 07/22 she underwent diagnostic laparoscopic/exploratory laparotomy with small bowel resection, extensive adhesiolysis. Postoperatively she was on TPN with NGT, FISH drains in place x 2. She was started back on therapeutic Lovenox on 07/25 for anticoagulation given her A-fib. Her NGT and FISH drains have been removed and she has been tolerating full liquid diet. She is off TPN at this time. She has been medically cleared for discharge to inpatient rehab at this time and excepted today. Discussed with general surgery that she may resume her oral Eliquis as her hemoglobin has remained stable on therapeutic Lovenox since surgery and she has a history of A-fib and PE. [place] should be removed on 08/[address] Faust Physical exam GEN: Alert and oriented x3, NAD, conversing well HEENT: Normal conjunctiva, sclera anicteric, CV: NSR, S1 S2 present, no murmur noted, no edema Pulm: Nonlabored respirations, bilaterally clear breath sounds, 2LNC ABD: Soft on palpation, mild tenderness generalized, midline incision clean and dry, Hypoactive Bowel Sounds, abdominal binder in place MSK: No joint tenderness, 2+ peripheral pulses Integumentary: No rashes Neuro: Normal speech, normal affect Vital Signs/Physical Exam: Temp Pulse Resp BP Pulse Ox 98.3 F 84 20 151/68 H 92 08/03/24 08:00 08/03/24 08:00 08/03/24 12:52 08/03/24 08:00 08/03/24 12:52 Laboratory Data at Discharge: WBC 7.60 thou/uL (4.3-10.9) 08/03/24 06:25 Hgb 8.3 g/dL (12.0-15.0) L 08/03/24 06:25 Hct 23.8 % (36.0-45.0) L 08/03/24 06:25 Plt Count 446 thou/uL (152-406) H 08/03/24 06:25 PT 13.5 SECONDS (9.4-12.5) H 07/18/24 02:19 INR 1.21 07/18/24 02:19 Sodium 138 mEq/L (136-145) 08/03/24 06:25 Potassium 3.5 mEq/L (3.5-5.1) 08/03/24 06:25 BUN 11 mg/dL (7-18) 08/03/24 06:25 Creatinine 0.51 mg/dL (0.55-1.02) L 08/03/24 06:25 Glucose 100 mg/dL (74-106) 08/03/24 06:25 Phosphorus 1.8 mg/dL (2.5-4.9) L 08/03/24 06:25 Magnesium 2.1 mg/dL (1.6-2.4) 08/03/24 06:25 Total Bilirubin 0.3 mg/dL (0.2-1.0) 07/24/24 05:45 AST 15 U/L (15-37) 07/24/24 05:45 ALT 19 U/L (13-56) 07/24/24 05:45 Alkaline Phosphatase 30 U/L (45-117) L 07/24/24 05:45 Home Medications: Irbesartan [Avapro] 1 tab PO BEDTIME 09/01/15 Amlodipine [Norvasc*] 1 tab PO DAILY 02/27/24 Apixaban [Eliquis] 1 tab PO BID 02/27/24 Tramadol HCl [Ultram] 1 tab PO QID PRN 02/27/24 Metoprolol Tartrate [Lopressor*] 25 mg PO TID 03/21/24 Docusate [Colace Cap*] 100 mg PO BID cap 08/03/24 Hydromorphone [Dilaudid*] 1 mg IV Q2H PRN ml 08/03/24 Physician Discharge Instructions: Patient was admitted to the hospital for a small bowel obstruction. She did not improve with medical management including an NG tube. On 07/22 she underwent diagnostic laparoscopic/exploratory laparotomy with small bowel resection, extensive adhesiolysis. Postoperatively she was on TPN with NGT, FISH drains in place x 2. She was started back on therapeutic Lovenox on 07/25 for anticoagulation given her A-fib. Her NGT and FISH drains have been removed and she has been tolerating full liquid diet. She is off TPN at this time. She has been medically cleared for discharge to inpatient rehab at this time and excepted today. Discussed with general surgery that she may resume her oral Eliquis as her hemoglobin has remained stable on therapeutic Lovenox since surgery and she has a history of A-fib and PE. [place] should be removed on 08/[address] Faust Diet: full liqui Activity: Fall precautions Followup: Alvin Faust MD [ACTIVE - CAN ADMIT] - 1 Week NONE,NONE [UNKNOWN] - Time spent managing pt's care (in minutes): 45
[2024-08-03 17:58] VITALS: BP 117/68; TEMP 98.8
== END 2024-08-03 21:15 | DRG 330 ==
LOC: ER 01:08 → 2ND 05:47 → 3RD-ICU 07-22 12:05 → 2ND 07-26 18:10
PROVIDERS: ADMIT Family Medicine; ATTEND Hospitalist
PROC: 30233N1 Transfusion of Nonautologous Red Blood Cells into Peripheral Vein, Percutaneous Approach (ICD-10-PCS; 2024-07-18)
PROC: 0DH67UZ Insertion of Feeding Device into Stomach, Via Natural or Artificial Opening (ICD-10-PCS; 2024-07-18)
PROC: 3E0436Z Introduction of Nutritional Substance into Central Vein, Percutaneous Approach (ICD-10-PCS; 2024-07-18)
PROC: 02HV33Z Insertion of Infusion Device into Superior Vena Cava, Percutaneous Approach (ICD-10-PCS; 2024-07-21)
PROC: 0DN80ZZ Release Small Intestine, Open Approach (ICD-10-PCS; 2024-07-22)
PROC: 0T9B70Z Drainage of Bladder with Drainage Device, Via Natural or Artificial Opening (ICD-10-PCS; 2024-07-22)
PROC: 0DB80ZZ Excision of Small Intestine, Open Approach (ICD-10-PCS; principal; 2024-07-22 11:00)
DX: K43.6 Other and unspecified ventral hernia with obstruction, without gangrene (principal); D62 Acute posthemorrhagic anemia; R65.10 Systemic inflammatory response syndrome (SIRS) of non-infectious origin without acute organ dysfunction; K92.2 Gastrointestinal hemorrhage, unspecified; I48.91 Unspecified atrial fibrillation; E83.42 Hypomagnesemia; E83.39 Other disorders of phosphorus metabolism; I10 Essential (primary) hypertension; K43.9 Ventral hernia without obstruction or gangrene; K21.9 Gastro-esophageal reflux disease without esophagitis; I71.40 Abdominal aortic aneurysm, without rupture, unspecified; Z93.3 Colostomy status; Z88.1 Allergy status to other antibiotic agents; Z88.7 Allergy status to serum and vaccine; Z98.51 Tubal ligation status; Z79.01 Long term (current) use of anticoagulants; Z86.711 Personal history of pulmonary embolism; Z85.038 Personal history of other malignant neoplasm of large intestine; Z79.899 Other long term (current) drug therapy
CPT/HCPCS: 36415; 71045; 74018; 74176; 74177; 80048; 80053; 80076; 81003; 82947; 83605; 83735; 84100; 84134; 84484; 85014; 85018; 85025; 85027; 85610; 86140; 86850; 86900; 86901; 86920; 88302; 88305; 88307; 93005; 94010; 94760; 97110; 97116; 97161; 97530; 99285; J0744; J1100; J1170; J1650; J2001; J2185; J2250; J2270; J2405; J2470; J2550; J2704; J3010; J3475; J3480; J7030; J7040; J7050; J7120; P9016; Q9967

== ENCOUNTER 2024-08-03 12:40 | Inpatient (IN) | payer OTHER ==
[2024-08-03] MEDS: TRAMADOL HCL 50 MG TAB PO PRN (22:00)
[2024-08-03 23:27] VITALS: BMI 29.6
[2024-08-04] MEDS ORDERED: HYDROCODONE/APAP 5/325 MG TAB PO PRN (05:03)
[2024-08-04] MEDS ORDERED: ACETAMINOPHEN 500 MG TAB PO PRN (05:04)
[2024-08-04 05:44] LABS: Absolute Basophils 0.1 K/uL (0-0.5); Absolute Eosinophils 0.2 K/uL (0-0.5); Absolute Monocytes 0.6 K/uL (0.1-1.3); Absolute Neutrophil 4.2 K/uL (1.8-8.0); Eosinophils % 3.6 % (0-4.4); Hematocrit 23.8 % (36.0-45.0); Hemoglobin 8.2 g/dL (12.0-15.0); Lymphocytes % 16.2 % (15.3-44.8); MCH 31.4 pg (27.0-35.0); MCHC 34.5 g/dL (32.0-36.0); MPV 7.8 fL (7.6-11.3); Monocytes % 10.4 % (3.3-12.3); Neutrophils % 68.8 % (41.7-73.7); Platelets 423 thou/uL (152-406); RBC Red Blood Cell Count 2.62 M/uL (3.86-4.86); Red Cell Distribution Width 14.6 % (12.1-15.2)
[2024-08-04 05:49] LABS: Anion Gap 6.4 mEq/L (5.0-15.0); Potassium 3.4 mEq/L (3.5-5.1)
[2024-08-04] MEDS: APIXABAN 5 MG TABLET PO SCH (07:38)
[2024-08-04] MEDS: HYDROCODONE/APAP 5/325 MG TAB PO PRN (07:43)
[2024-08-04] MEDS: AMLODIPINE 10 MG TAB PO SCH ×2 (08:00→14:30)
[2024-08-04] MEDS: METOPROLOL XL 25 MG TAB PO SCH ×2 (09:00→20:05)
[2024-08-04] MEDS: DOCUSATE NA 100 MG CAP PO SCH (10:08)
[2024-08-04] MEDS: ENSURE ENLIVE 237 ML CAN PO SCH (10:16)
[2024-08-04] MEDS: SODIUM CHLORIDE 0.9% 10ML INJ IV SCH (10:17)
[2024-08-04] MEDS: POTASSIUM CL SA 10 MEQ TAB PO SCH (10:17)
[2024-08-04 11:28] LABS: Sqamous Epithelial <5 /HPF (None Seen); Transitional Epithelial <5 /HPF (None Seen); Urine Bacteria <20 /HPF (<20); Urine Bilirubin NEGATIVE (Negative); Urine Blood Trace (Negative); Urine Clarity Turbid (Clear); Urine Color Yellow (Yellow); Urine Culture Reflex Order NOT NEEDED; Urine Glucose NEGATIVE (Negative); Urine Ketones NEGATIVE (Negative); Urine Micro Reflex YN NO BILL MICROSCOPIC; Urine Mucus 2+ /HPF (None Seen); Urine Nitrite NEGATIVE (Negative); Urine Protein 1+ (Negative); Urine RBC <5 /HPF (None Seen); Urine Urobilinogen 2+ (Normal); Urine WBC <5 /HPF (<5); Urine pH 6.5 (5.0-7.0)
--- NOTE | 2024-08-04 13:23 | P.RH.PN ---
Estimated Length of Stay: 10 Expected Discharge Date: 08/15/24 Discharge Disposition Plan: Home Family Support: Yes Prison Goal: Mobility, Transfers, Self Care Vital Signs: Last Vital Signs Temp 97.2 F 08/04/24 06:25 Pulse 131 H 08/04/24 09:00 Resp 18 08/04/24 11:06 BP 99/55 L 08/04/24 09:00 Pulse Ox 95 08/04/24 11:06 Laboratory: Laboratory Last Values WBC 6.10 thou/uL (4.3-10.9) 08/04/24 05:00 RBC 2.62 M/uL (3.86-4.86) L 08/04/24 05:00 Hgb 8.2 g/dL (12.0-15.0) L 08/04/24 05:00 Hct 23.8 % (36.0-45.0) L 08/04/24 05:00 MCV 91.0 fL (80-100) 08/04/24 05:00 MCH 31.4 pg (27.0-35.0) 08/04/24 05:00 MCHC 34.5 g/dL (32.0-36.0) 08/04/24 05:00 RDW 14.6 % (12.1-15.2) 08/04/24 05:00 Plt Count 423 thou/uL (152-406) H 08/04/24 05:00 MPV 7.8 fL (7.6-11.3) 08/04/24 05:00 Neutrophils % 68.8 % (41.7-73.7) 08/04/24 05:00 Lymphocytes % 16.2 % (15.3-44.8) 08/04/24 05:00 Monocytes % 10.4 % (3.3-12.3) 08/04/24 05:00 Eosinophils % 3.6 % (0-4.4) 08/04/24 05:00 Basophils % 1.0 % (0-1.3) 08/04/24 05:00 Absolute Neutrophils 4.2 K/uL (1.8-8.0) 08/04/24 05:00 Absolute Lymphocytes 1.0 K/uL (0.7-4.9) 08/04/24 05:00 Absolute Monocytes 0.6 K/uL (0.1-1.3) 08/04/24 05:00 Absolute Eosinophils 0.2 K/uL (0-0.5) 08/04/24 05:00 Absolute Basophils 0.1 K/uL (0-0.5) 08/04/24 05:00 Sodium 140 mEq/L (136-145) 08/04/24 05:00 Potassium 3.4 mEq/L (3.5-5.1) L 08/04/24 05:00 Chloride 109 mEq/L (98-107) H 08/04/24 05:00 Carbon Dioxide 28 mEq/L (21-32) 08/04/24 05:00 Anion Gap 6.4 mEq/L (5.0-15.0) 08/04/24 05:00 BUN 12 mg/dL (7-18) 08/04/24 05:00 Creatinine 0.66 mg/dL (0.55-1.02) 08/04/24 05:00 Est GFR (CKD-EPI) 88 ml/min (=/>90) L 08/04/24 05:00 Glucose 93 mg/dL (74-106) 08/04/24 05:00 Calcium 8.3 mg/dL (8.5-10.1) L 08/04/24 05:00 Magnesium 2.0 mg/dL (1.6-2.4) 08/04/24 05:00 Albumin 2.0 g/dL (3.4-5.0) L 08/04/24 05:00 Prealbumin 11.0 mg/dL (20-40) L 08/04/24 05:00 Urine Color Yellow (Yellow) 08/04/24 11:09 Urine Clarity Turbid (Clear) H 08/04/24 11:09 Urine pH 6.5 (5.0-7.0) 08/04/24 11:09 Ur Specific [place] 1.020 (1.005-1.030) 08/04/24 11:09 Glucose (UA)(Auto) Negative (Negative) 08/04/24 11:09 Urine Ketones Negative (Negative) 08/04/24 11:09 Urine Blood Trace (Negative) H 08/04/24 11:09 Urine Nitrite Negative (Negative) 08/04/24 11:09 Urine Bilirubin Negative (Negative) 08/04/24 11:09 Urine Urobilinogen 2+ (Normal) H 08/04/24 11:09 Ur Leukocyte Esterase Negative Marie/uL (Negative) 08/04/24 11:09 Urine RBC <5 /HPF (None Seen) 08/04/24 11:09 Urine WBC <5 /HPF (<5) 08/04/24 11:09 Ur Squamous Epith Cells <5 /HPF (None Seen) 08/04/24 11:09 Ur Transition Epith Cell <5 /HPF (None Seen) 08/04/24 11:09 Amorphous Crystals Trace /HPF (None Seen) 08/04/24 11:09 Urine Bacteria <20 /HPF (<20) 08/04/24 11:09 Urine Mucus 2+ /HPF (None Seen) 08/04/24 11:09 Urine Culture Reflexed Not needed 08/04/24 11:09 Urine Total Protein 1+ (Negative) H 08/04/24 11:09 Weight: 195 lb Closed Surgical Incision Present: Yes Physician Update: Labs reviewed. Low Hgb and K+. On [place] 5/325 mg. Ortho static with therapy: supine 157/70, sitting 124/63 with dizziness, standing 99/55 with HR 131. Partial assistance sit to stand. Get help with all ADLs at home. Toileting with CGA. She had 3 soft BMs with dependence. BP with lightheadedness resolved by lying down. Will get a routine EKG. Summary: Patient's care plan and terminal carman goals have been reviewed and revised as necessary. Please see the Rehabilitation Signature page for all necessary signatures.
[2024-08-04] MEDS ORDERED: MELATONIN 3 MG TABLET PO PRN (14:05)
[2024-08-04] MEDS ORDERED: cloNIDine HCL 0.1 MG TAB PO PRN (14:15)
[2024-08-04] MEDS: LOPERAMIDE HCL 2 MG CAPSULE PO ONE (14:33)
--- NOTE | 2024-08-04 17:14 | RAD REPORT ---
Exam:Abdomen 1 View (KUB) Clinical history: Abdominal pain FINDINGS: The bowel gas pattern is unremarkable Post surgical changes involving the abdomen
[2024-08-04] MEDS: BACLOFEN 10 MG TAB PO SCH (20:00)
[2024-08-04] MEDS: AMLODIPINE 5 MG TAB PO SCH (20:00)
[2024-08-04] MEDS: MAGNESIUM OXIDE 400 MG TAB PO SCH (20:13)
[2024-08-04] MEDS ORDERED: VALSARTAN 160 MG TAB PO SCH (21:00)
--- NOTE | 2024-08-05 04:33 | HP ---
Date of Admission: 08/03/2024 Time Of Service: 1 p.m. Chief Complaint: "I had a lot of abdominal surgery and had some pain, I want to get strong again." History Of Present Illness: Ms. Yates is an 83-year-old patient with multiple medical problems i ncluding colon cancer, multiple abdominal surgeries, gastroesophageal reflux disease, hypertension, p ulmonary embolism, who was brought to the Emergency Department on 07/18/2024 with worsening abdominal pain, nausea, and vomiting. Workup identified small bowel obstruction secondary to a large complex ventral hernia and mild upper GI bleed. Comorbidities are atrial fibrillation, on chronic anticoagul ation along with hypertension. She had acute blood loss with anemia, leukocytosis, hypomagnesemia, h ypophosphatemia. She had multiple GI surgeries including diagnostic laparoscopy, exploratory laparot sonido with small bowel resection, extensive adhesiolysis, and a FISH drain placed. She had an NG tube pl aced and was removed on 08/01. She had an n.p.o. diet as the surgery was done immediately after, moy t was upgraded to a full liquid diet on 08/02 and to be advanced as tolerated. She is still having s ome loose stools and had 4 loose stools today. She did receive TPN IV fluids for electrolyte imbalan ce and been on telemetry monitoring. As her cardiac enzymes did show elevation, she was seen and man aged by the Cardiology Service. Course complicated by pain, weakness, poor endurance, debility, and the multiple abdominal surgeries with drains for nutrition, leukocytosis, hypomagnesemia, hypophospha temia. Prior to her hospitalization, Ms. Yates was independent at home with her care for cooking , cleaning, showering. The patient's does require help and they currently have [employer] prov iding assistance throughout most of the day. She is now not able to drive, requires moderate assista nce for transferring from a supine to sit to stand position, minimum to moderate assistance for ambul ation, and only a few steps with a rolling walker is currently able to do. [facility] have her medical conditions stably managed to help her return to her prior leve l of functioning and to reduce the chances of her being rehospitalized. Past Medical History: Include chronic hip, neck, and back pain, gastroesophageal reflux disease, gas tritis, hypertension, multiple abdominal surgeries, cholelithiasis, colon cancer, atrial fibrillation , pulmonary embolus, and fever. Past Surgical History: , tubal ligation, multiple abdominal surgeries, tonsillectomy, adhes iolysis, and sigmoid resection with colostomy reversal. Allergies: AMPICILLIN, SULFA, TETANUS TOXOID. Medications: Tylenol 500 mg every 4 hours as needed, [place] 5/325 every 4 hours as needed for severe pain and if 8 to 10 rating, Norvasc 5 mg twice daily, Eliquis 2.5 mg twice daily, baclofen 5 mg twice daily, clonidine 0.1 mg for systolic blood pressure greater than 170 every 4 hours, Colace 100 mg tw ice daily to be held when the patient has loose stools, magnesium oxide 400 mg twice daily, melatonin 3 mg at bedtime for insomnia, Toprol-XL 25 mg 3 times daily, Ensure Enlive 237 mL twice daily, Amaury nix 40 mg daily, potassium 20 mEq daily. She has tramadol 100 mg every 6 hours as needed and trazodo ne 50 mg at bedtime for insomnia. Family History: Noncontributory. X-ray/imaging: On 07/18/2024, CT scan of the abdomen and pelvis shows recurrent small bowel obstruct ion related to a large complex ventral abdominal hernia with transition. The transition point is as noted above. There is enteric decompression recommended and of course, the patient had surgery. The re is an uncomplicated appearance of mid transverse colon loop within the hernia sac. There is a sli ght interval decrease of the right ovarian cyst seen previously. There was an unchanged infrarenal a bdominal aortic aneurysm that was seen previously. There was chronic cholelithiasis. KUB done on shows enteric tube was coiled in the stomach. KUB done on 07/19/2024 shows nasogastric tube coiled within the gastric fundus. Tip lies 2 cm from the GE junction. Several mildly dilated loops are present within the left abdomen and pelvis, which may indicate partial mechanical obstruction. Areas within the colon are noted to be diminished. A CT scan of the abdomen and pelvis on 07/20/2024 shows mild to moderate small bowel obstruction persists without significant change since comparison study, likely related to complex ventral hernia described with mild free fluid in the upper abdomen. No air seen. Gallbladder distention with multi-stone cholelithiasis. X-ray done on 07/21/2024, a P ICC line has been inserted in the hip. KUB done on 07/22/2024 shows increased bowel dilatation remai ns concerning for small bowel obstruction, possibly high-grade. On 07/31/2024, KUB shows no evidence of bowel obstruction, interval laparotomy. On 07/18/2024, EKG showed normal sinus rhythm and no new ECG. There was a previous ECG done on 02/24/2024 that showed atrial premature complexes no longer p resent and actually was compared to that study where it shows that is no longer present and right axi s deviation was no longer present. While on the acute care, the patient was seen by General Surgery, Cardiology, Physical Therapy, and Hospitalist. Laboratory Studies: White blood cell count 6.1, hemoglobin 8.2, platelets 423. Sodium 140, potassiu m 3.4, chloride 109, carbon dioxide 28, BUN 12, creatinine 0.66, glucose 93, calcium 8.3, magnesium 2 .0, albumin 2.0, prealbumin 11.0. Urinalysis, turbid clarity, trace blood, 2+ urobilinogen, 1+ total protein. Review of Systems: She does report 4 moderately soft stools since early this morning. She said she attempted to eat hayder e lunch, Jell-O, and that caused her to have to go. She now has some Imodium just 2 mg given low dos e. She reports also some lower abdominal pain as she turned and twisted to get out of bed. Otherwis e, says she is doing fairly well. No fevers, no chills. Mild myalgias, arthralgias, and she has hayder e muscle spasms in the abdominal wall in the left more than the right lower quadrant. No other posit mary noted on a systems review. Current Level Of Functioning: Currently, eating setup assistance, oral hygiene setup assistance, mark leting moderate assistance, showering moderate assistance. Upper body dressing, lower body dressing, donning and doffing of footwear, all moderate assistance. Rolling vsqmo-vn-dqom, pnvs-eg-amova, for lying to sitting on side of bed, sit to stand, all moderate assistance. For going from bed to chair , moderate assistance. Toilet transfer, moderate assistance. Ambulation, moderate assistance with a rolling walker, just covered 1 foot. Physical Examination: Vital Signs: Blood pressure 118/66, pulse 76, respiratory rate 16, temperature 97.2, oxygen saturati on 95%. Weight 195 pounds, height 5 feet 8 inches, BMI 29.6. General: Ms. Yates is resting in bed. She is in no significant distress. HEENT: She is normocephalic, atraumatic. Sclerae anicteric. Oropharynx pink, moist. Neck: Supple. Abdomen: The abdomen has abdominal binder in place. Good hemostasis in abdominal surgical sites. Extremities: Mild trace edema in the lower extremities. No clubbing noted. Neurologic: No cranial nerve deficits. She is cognitively intact. She is able to follow all comman ds appropriately. Speech is clear and she recounts stories concisely with good chronology and withou t any difficulty. No upper or lower left or right focal weakness, diffusely weak, 4+ upper and lower extremities. Stocking-glove loss to light, touch, temperature noted and again not able to ambulate any significant way as she has significant abdominal pain and she is being worked for that. Rehab And Medical Assessment And Plan: Ms. Yates is admitted to the [facility] with impairment category 20, miscellaneous. Impairment group code is 16, debility, noncardiac, non pulmonary. Etiologic diagnosis, small bowel obstruction. Her comorbidities are atrial fibrillation, decreased mobility, decreased physical functioning, GE reflux, GI bleed, hernia repair, hypertension , hypomagnesemia, hypophosphatemia, postoperative anemia, leukocytosis. Plan: 1.She will have physical and occupational therapy 3 hours a day, 5 of 7 days. Continue with pain ma nagement using tramadol, [place], and Tylenol as appropriate. May add gabapentin or Lyrica depending o n how she is doing. 2.For her loose stools, Imodium 2 mg every 4 hours as needed. 3.For DVT prophylaxis given atrial fibrillation and risk of stroke, she will have Eliquis 5 mg twice daily, baclofen for her muscle spasms in the abdominal region. We will hold Colace currently as she has loose stools, magnesium for muscle spasms, Toprol for heart rate control and blood pressure cont rol. She has Ensure Enlive for her protein needs and malnutrition, Protonix for GE reflux, potassium replacement on board. She did say there was some difficulty swallowing food and pills actually and she would like to have things crushed and that will be done to the extent possible. Comorbidities That Are Impacting Rehabilitation: Currently, the pain is a significant issue and abdo kannan muscle spasms. Pain medications are of triple modality and neuromodulator will have judicious use of transdermal and narcotic and lower level narcotic as well. For DVT prophylaxis, Eliquis, that is also for stroke risk reduction that she would be at risk for DVT and stroke. She does have again extensive abdominal surgery and will have the abdominal binder in place. We will use ANDERSON hose. If there is orthostatic changes and she is at risk for dehydration, IV fluids may be required. She will be encouraged to hydrate with 8 glasses of water. With speech therapy session, the therapist will h elp to encourage water. Rehab Specific Plan: Ms. Yates will have physical, occupational, and speech therapy as needed an d will be at least 3 or 3.5 hours, 5 of 7 days to improve her ability to transfer from bed to chair t o a walker to a wheelchair to toilet to shower, to perform toileting, to perform showering, and to be able to ambulate around the household at least 50 feet daily, 250 feet without stopping, also go up and down 10 steps with bilateral handrails and propel a wheelchair 250 feet. Ms. Yates has good understanding of the process of admission to the inpatient rehabilitation unit , how she will benefit from physical, occupational, and if need be speech therapy. She will have 24 hours a day, 7 days a week, skilled rehabilitation and nursing, daily physician evaluation and manage ment, and social sciences instructor evaluation and management for discharge planning, home equipment. Continue therapy and for physician followup along with medications. If need be, additional help will be jeremyg ria from the Hospitalist Service and Cardiology Service along with the ID Service and [facility]. Barriers To Discharge: Currently, she has had multiple abdominal surgeries over several years and if there is recurrence of bowel obstruction, she may have to go back to acute care for. Dr. Faust wi ll be on board to assist. Also, she may not be ready for home and may consider longterm if sh e is unable to do well. She does have care from [facility] and the care provider is present today and they will participate in training as needed to facilitate her going back home. Length Of Stay: About 14 days. Disposition: Expected to be home with continued therapy via Home Health and the patient has a care mayco alexander. Prognosis: Fair. Rehab Specific Goals: 1.Become independent with upper and lower body dressing, donning and doffing footwear. 2.Independently perform all transfers, bed to toilet to shower. 3.Independently mobilize a wheelchair 250 feet. 4.Independently ambulate 250 feet with a rolling walker. 5.Independently go up and down 5 steps with bilateral handrails. 6.Independently perform all cognitive functioning. The above goals were reviewed with Ms. Yates and she is in agreement. By signing this document, I acknowledge I personally performed a full physical examination on Ms. Melly calle no later than 24 hours after her admission to the inpatient rehabilitation facility and determ ined that she is able to tolerate the above course of treatment at an intensive level for reasonable period of time. A detailed individualized plan of care for her will be completed by hospital day 4 b july on the preadmission screen, history and physical, and therapy evaluations. DAVID Voice ID: [id number]
[2024-08-05] MEDS: PANTOPRAZOLE 40MG TABLET PO SCH (07:30)
[2024-08-05] MEDS: TRAMADOL HCL 50 MG TAB PO PRN (07:34)
[2024-08-05] MEDS: POTASSIUM 25 MEQ EFFERV TAB PO SCH (11:27)
[2024-08-05] MEDS: CRANBERRY FRUIT EXTRACT 200 MG CAP PO SCH (12:22)
[2024-08-05] MEDS: FERROUS SULFATE 325 MG TAB PO SCH (12:22)
[2024-08-05] MEDS: TRAZODONE 50 MG TABLET PO PRN (20:12)
[2024-08-06 05:41] LABS: Absolute Basophils 0.1 K/uL (0-0.5); Absolute Eosinophils 0.2 K/uL (0-0.5); Absolute Lymphocytes (CBC) 1.3 K/uL (0.7-4.9); Absolute Monocytes 0.7 K/uL (0.1-1.3); Absolute Neutrophil 4.1 K/uL (1.8-8.0); Basophils % 1.1 % (0-1.3); Eosinophils % 3.5 % (0-4.4); Hematocrit 24.2 % (36.0-45.0); Lymphocytes % 20.7 % (15.3-44.8); MCH 30.3 pg (27.0-35.0); MCV 91.9 fL (80-100); MPV 8.2 fL (7.6-11.3); Monocytes % 10.4 % (3.3-12.3); Neutrophils % 64.3 % (41.7-73.7); Platelets 412 thou/uL (152-406); RBC Red Blood Cell Count 2.64 M/uL (3.86-4.86); Red Cell Distribution Width 14.8 % (12.1-15.2)
[2024-08-06 05:51] LABS: Anion Gap 7.8 mEq/L (5.0-15.0); Potassium 3.8 mEq/L (3.5-5.1)
[2024-08-07] MEDS: ONDANSETRON 4 MG (ODT) TAB PO PRN (21:32)
[2024-08-07] MEDS: HYDROCODONE/APAP 5/325 MG TAB PO ONE (23:03)
[2024-08-07] MEDS ORDERED: HYDROCODONE/APAP 5/325 MG TAB PO PRN (23:04)
[2024-08-07 23:25] VITALS: BP 132/68; TEMP 97.9
--- NOTE | 2024-08-08 00:37 | RAD REPORT ---
EXAM: XR Abdomen, 1 View CLINICAL HISTORY: The patient is 83 years old and is Female; Abdominal pain TECHNIQUE: Frontal supine view of the abdomen/pelvis. COMPARISON: XR Abdomen dated Mar 22 2024 FINDINGS: GASTROINTESTINAL TRACT: The bowel gas pattern is nonobstructive. No dilated loops of bowel are se en. There is no significant stool burden. Distal air is present. BONES/JOINTS: Unremarkable. No acute fracture. SOFT TISSUES: Midline abdominal skin taylor are noted. IMPRESSION: Nonobstructive, nonspecific bowel gas pattern. Electronically signed by: Leeanne Henry MD 08/08/2024 12:33 AM CDT RP Due to temporary technical issues with the PACS/[employer] reporting system, reports are being ralph d by the in-house radiologist without review as a courtesy to ensure prompt reporting the interpreting radiologist is fully responsible for the content of the report. Transcribed Date/Time: 08/08/2024 12:37 AM
--- NOTE | 2024-08-08 01:44 | P.CNS ---
Date of Consult: 08/08/24 Reason for Consult: Abdominal pain Chief Complaint: Abdominal Pain History of Present Illness: 83-year-old female with past medical history of history of atrial fibrillation on chronic anticoagulation, pulmonary embolism, multiple bowel obstructions with known large complex ventral hernia who underwent surgery by Dr. Faust. for bowel obstruction and was admitted to the rehab postsurgery. Patient started having abdominal pain today associated with generalized weakness. Allergies ampicillin Allergy (Verified 08/04/24 00:24) Bleeding gums SULFA (SULFONAMIDES) Allergy (Uncoded 09/01/15 14:20) Rash TETANUS TOXOID Allergy (Uncoded 09/01/15 14:20) Rash Home medications list reviewed: Yes Home Medications: Irbesartan [Avapro] 300 mg PO BEDTIME 09/01/15 Amlodipine [Norvasc*] 10 mg PO DAILY 02/27/24 Apixaban [Eliquis] 5 tab PO BID 02/27/24 Tramadol HCl [Ultram] 1 tab PO Q6H PRN 02/27/24 Metoprolol Tartrate [Lopressor*] 25 mg PO TID 03/21/24 Docusate [Colace Cap*] 100 mg PO BID cap 08/03/24 - Past Medical/Surgical History Diabetic: No Past Medical History: Reviewed- Non-Contributory -: hip pain -: gerd -: gastritis -: htn -: back, neck pain, neck sprain, bk sprain -: chest wall pain -: abdominal injury -: cholelithiasis -: colon cancer -: Atrial fibrillation -: pulmonary embolism Past Surgical History: Reviewed- Non-Contributory -: Previous -: Tubal ligation -: tonillectomy -: adnoid sx -: ft sx -: sigmoid resection with colostomy - Family History Father Medical History: Cancer Notes: panceatic cancer Mother Medical History: Heart disease, Hypertension - Social History Smoking Status: Former smoker Alcohol use: Yes CD- Drugs: No Caffeine use: Yes Place of Residence: Home Physical Examination Temp Pulse Resp BP Pulse Ox 97.9 F 102 H 18 132/68 94 08/07/24 23:00 08/07/24 23:00 08/08/24 00:37 08/07/24 23:00 08/08/24 00:37 Conclusions/Impression: h/o Recurrent small bowel obstruction secondary to large complex ventral hernia S/P Diagnostic Laparoscopy, Exploratory Laparotomy, Small Bowel Resection, Extensive Adhesiolysis H/o blood loss anemia Hypomagnesemia hypophosphatemia Atrial fibrillation on chronic anticoagulation History of pulmonary embolism anticoagulation Hypertension Patient was admitted to the hospital for a small bowel obstruction. She did not improve with medical management including an NG tube. On 07/22 she underwent diagnostic laparoscopic/exploratory laparotomy with small bowel resection, extensive adhesiolysis. Postoperatively she was on TPN with NGT, FISH drains in place x 2. She was started back on therapeutic Lovenox on 07/25 for anticoagulation given her A-fib. Her NGT and FISH drains have been removed and she has been tolerating full liquid diet. She is off TPN at this time. She has been medically cleared for discharge to inpatient rehab at this time and excepted today. Discussed with general surgery that she may resume her oral Eliquis as her hemoglobin has remained stable on therapeutic Lovenox since surgery and she has a history of A-fib and PE.
[2024-08-08] MEDS ORDERED: MORPHINE 2 MG/ML SYR IV PRN ×2 (02:01→03:12)
[2024-08-08] MEDS: NA CHLORIDE 0.9% 1,000 ML IV SCH (02:25)
[2024-08-08] MEDS ORDERED: MORPHINE 2 MG/ML SYR ONE (02:38)
[2024-08-08] MEDS: MORPHINE 2 MG/ML SYR IV ONE (02:43)
[2024-08-08] MEDS ORDERED: ACETAMINOPHEN 325 MG TABLET PO PRN (03:17)
--- NOTE | 2024-08-08 03:17 | P.HP ---
Certification for Inpatient Patient admitted to: Inpatient With expected LOS: >2 Midnights Practitioner: I am a practitioner with admitting privileges, knowledge of patient current condition, hospital course, and medical plan of care. Services: Services provided to patient in accordance with Admission requirements found in Title 42 Section 412.3 of the Code of Federal Regulations Patient History Date of Service: 08/08/24 Reason for admission: Abdominal Pain History of Present Illness: 83-year-old female with past medical history of history of atrial fibrillation on chronic anticoagulation, pulmonary embolism, multiple bowel obstructions with known large complex ventral hernia who underwent surgery by Dr. Faust. for bowel obstruction and was admitted to the rehab post surgery. Patient started having abdominal pain today associated with generalized weakness. and nausea and vomiting . Patient started having diffuse abdominal pain with distention. Denies any fever or chills but associated with generalized weakness. Pain is 10 out of 10 in severity Patient was assessed in the rehab and is admitted for further management to telemetry Allergies ampicillin Allergy (Verified 08/04/24 00:24) Bleeding gums SULFA (SULFONAMIDES) Allergy (Uncoded 09/01/15 14:20) Rash TETANUS TOXOID Allergy (Uncoded 09/01/15 14:20) Rash Home medications list reviewed: Yes Home Medications: Irbesartan [Avapro] 300 mg PO BEDTIME 09/01/15 Amlodipine [Norvasc*] 10 mg PO DAILY 02/27/24 Apixaban [Eliquis] 5 tab PO BID 02/27/24 Tramadol HCl [Ultram] 1 tab PO Q6H PRN 02/27/24 Metoprolol Tartrate [Lopressor*] 25 mg PO TID 03/21/24 Docusate [Colace Cap*] 100 mg PO BID cap 08/03/24 - Past Medical/Surgical History Has patient received pneumonia vaccine in the past: No Diabetic: No Past Medical History: Reviewed- Non-Contributory -: hip pain -: gerd -: gastritis -: htn -: back, neck pain, neck sprain, bk sprain -: chest wall pain -: abdominal injury -: cholelithiasis -: colon cancer -: Atrial fibrillation -: pulmonary embolism Past Surgical History: Reviewed- Non-Contributory -: Previous -: Tubal ligation -: tonillectomy -: adnoid sx -: ft sx -: sigmoid resection with colostomy - Family History Family History: Reviewed- Non-Contributory - Family History Father -: Cancer Notes: panceatic cancer Mother -: Heart disease, Hypertension - Social History Smoking Status: Former smoker Alcohol use: Yes CD- Drugs: No Caffeine use: Yes Place of Residence: Home Review of Systems 10-point ROS is otherwise unremarkable Physical Examination - Vital Signs Temperature: 97.9 F Blood Pressure: 132/68 Pulse: 102 Respirations: 16 Pulse Ox (%): 94 - Physical Exam General: Alert, Oriented x3, Moderate distress HEENT: Atraumatic, Normocephalic Neck: Supple, No Thyromegaly Respiratory: Clear to auscultation bilaterally, Normal air movement Cardiovascular: Regular rate/rhythm, Normal S1 S2 Capillary refill: <2 Seconds Gastrointestinal: Distended, Tenderness Musculoskeletal: No clubbing, No swelling Integumentary: No rashes Neurological: Normal speech, Normal strength at 5/5 x4 extr, Cranial nerves 3-12 intact Lymphatics: No axilla or inguinal lymphadenopathy Assessment and Plan - Plan Intractable abdominal pain Nausea and vomiting Dehydration h/o Recurrent small bowel obstruction secondary to large complex ventral hernia S/P Diagnostic Laparoscopy, Exploratory Laparotomy, Small Bowel Resection, Extensive Adhesiolysis H/o blood loss anemia Hypomagnesemia hypophosphatemia Atrial fibrillation on chronic anticoagulation History of pulmonary embolism anticoagulation Hypertension Patient was admitted to the hospital f Morphine as needed Pain control Started on IV hydration Will obtain a CT of the abdomen pelvis Surgical consult Will get a CBC CMP and electrolytes Continue home medications and titrate as needed Discussed with patient and family GI/DVT prophylaxis Advanced directive full code Discharge Plan: Home Plan to discharge in: 48 Hours - Advance Directives Does patient have a Living Will: Yes Does patient have a Durable POA for Healthcare: Yes - Code Status/Comfort Care Code Status: Full Code Time Spent Managing Pts Care (In Minutes): 48
--- NOTE | 2024-08-08 03:41 | RAD REPORT ---
EXAMINATION: CT ABDOMEN PELVIS WITHOUT IV CONTRAST INDICATION: Female, 83 years old, Abdominal pain COMPARISON(S): Abdomen radiograph 08/07/2024, CT abdomen/pelvis 07/20/2024 TECHNIQUE: CT acquisition of the abdomen and pelvis without contrast. Coronal and sagittal reformatte d images provided. This exam was performed according to departmental dose-optimization program which includes automated exposure control, adjustment of the mA and/or kV according to patient size, and/or use of iterative reconstruction technique. FINDINGS: SUPPORT DEVICES: None. LOWER CHEST: Similar small left and trace right layering simple density pleural effusions and adjacen t compressive atelectasis. Unremarkable imaged heart. ABDOMEN AND PELVIS: Lack of intravenous contrast limits evaluation of the abdominal and pelvic viscera and vascular struc tures. Photon starvation results in low [id number] and further limits assessment. Patient motion artifact at several levels further limits assessment. Liver: Unremarkable. Gallbladder and bile ducts: Multiple small calcified stones layering within the distended gallbladder . No evident ductal dilation. Pancreas: Mild atrophy. Spleen: Multiple parenchymal calcifications. Adrenal glands: Unremarkable. Kidneys and ureters: Punctate nonobstructing calcification in the right renal collecting system. Righ t inferior renal simple cyst. Otherwise unremarkable and unchanged. Bladder: Nondistended without evident abnormality. Reproductive organs: Unchanged right adnexal 3.4 x 3 x 3.4 cm cyst. GI tract/peritoneum: Small-moderate hiatal hernia. Otherwise the stomach and duodenum are unremarkabl e. Interval small bowel postsurgical change with anastomotic sutures in the left mid abdomen. Extending inferomedially from the anastomotic sutures, a large dilated structure with peripheral wall measures up to 14.7 x 6.6 cm axially (series 201 image 69/109) which appears to represent a small bowel distal to the suture, although is not well delineated from the more distal decompressed small b owel. Surrounding soft tissue stranding and confluent edema/ascites. No free air. Additional previous small bowel anastomotic sutures in the right lower quadrant are uncomplicated. Th e large bowel is normal in caliber without wall thickening. Colonic diverticulosis without diverticulitis. No evidence of appendicitis. Vessels: Moderate atherosclerosis with unchanged infrarenal 3.6 cm aneurysm. Lymph nodes: No obvious adenopathy. Abdominal wall: Complex ventral postsurgical change including recent incision, altered morphology of previous mesh material, and chronic fluid within the right inferior portion. Previous small bowel containing hernia sac is now collapsed/appositioned. MUSCULOSKELETAL: No acute osseous abnormality or significant interval change. IMPRESSION: 1. Interval postsurgical change with new small bowel anastomosis in the left upper quadrant. Extend ing inferomedially from the site of anastomosis, an enlarged tubular structure measuring up to 14.7 cm is not well characterized but likely represents dilated small bowel. Prominent surrounding mesente dominick edema and ascites are present concerning for postoperative small bowel obstruction. Surgical reconsultation is recommended. 2. Interval ventral abdominal wall postsurgical change with resolution of the previous bowel contai ramiro hernia sac, change in morphology of previous mesh material, and entrapped fluid along the inferior incision. 3. Numerous additional subacute, chronic and incidental findings without significant change from th e prior exam as detailed above. Of note, the abdominal aortic 3.6 cm aneurysm requires two-year interval follow-up imaging per ACR guidelines and the right ovarian 3.4 cm cyst requires 3-6 or 6-12 month follow-up ultrasound per SRU guidelines. Electronically signed by: Paul Dunn MD 08/08/2024 03:37 AM [facility] Due to temporary technical issues with the [email or web address] reporting system, reports are being ralph d by the in-house radiologist without review as a courtesy to ensure prompt reporting the interpreting radiologist is fully responsible for the content of the report. Transcribed Date/Time: 08/08/2024 3:41 AM
[2024-08-08 06:10] LABS: Absolute Lymphocytes (CBC) 0.4 K/uL (0.7-4.9); Absolute Monocytes 1.4 K/uL (0.1-1.3); Absolute Neutrophil 17.5 K/uL (1.8-8.0); Basophils % 0.1 % (0-1.3); Hematocrit 30.8 % (36.0-45.0); Hemoglobin 10.6 g/dL (12.0-15.0); MCHC 34.5 g/dL (32.0-36.0); MCV 90.1 fL (80-100); MPV 7.9 fL (7.6-11.3); Monocytes % 7.1 % (3.3-12.3); Neutrophils % 90.8 % (41.7-73.7); Platelets 514 thou/uL (152-406); RBC Red Blood Cell Count 3.42 M/uL (3.86-4.86); Red Cell Distribution Width 14.7 % (12.1-15.2)
[2024-08-08 06:21] LABS: Albumin 2.3 g/dL (3.4-5.0); Albumin/Globulin Ratio 0.5 (1.1-1.8); Anion Gap 9.1 mEq/L (5.0-15.0); Bilirubin Total 0.6 mg/dL (0.2-1.0); Globulin 4.2 g/dL (2.3-3.5); Magnesium 2.4 mg/dL (1.6-2.4); Potassium 4.1 mEq/L (3.5-5.1); Protein, Total 6.5 g/dL (6.4-8.2)
[2024-08-08 08:23] LABS: Blood Morphology Comment NOT SEEN (NOT SEEN); Platelet Estimate INCR; White Blood Cell Scan OK (OK)
[2024-08-08 08:24] LABS: Platelets Clumped NOTED
--- NOTE | 2024-08-10 12:13 | EKG ---
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
--- NOTE | 2024-08-28 00:44 | DS ---
Date of Discharge: 08/08/2024 Discharge Allergies: Ampicillin, sulfa, tetanus toxoid. Discharge Condition: Guarded. The patient is discharged to acute care floor because of abdominal ob struction. Medications: Tramadol 50 mg at bedtime, clonidine 0.1 mg every 4 hours as needed for systolic blood pressure greater than 170. Trazodone 50 mg at bedtime, Protonix 40 mg daily, Zofran 4 mg every 4 arnaud rs as needed, metoprolol 25 mg 3 times daily, melatonin 3 mg at bedtime, [place] 5/325 every 4 hours as needed. Ferrous sulfate 325 mg daily, Ensure Enlive 23y mL twice daily, Colace 100 mg twice daily, cranberry fruit extract 200 mg daily, baclofen 5 mg twice daily, Eliquis 5 mg twice daily, Norvasc 5 mg twice daily, extra-strength Tylenol 500 mg every 4 hours as needed. Laboratory Studies: White blood cell count has increase significantly to 19.3. Just before discharg e, it was noted bowel obstruction was identified. Neutrophils were 90.8, hemoglobin 10.6, platelets 514 sodium 134, potassium 4.1, chloride 103, carbon dioxide 26, BUN 53, creatinine 0.85. Prealbumin 11.0, albumin 2.0, AST 11, ALT 21, alkaline phosphatase 75. Urinalysis shows 2+ urobilinogen, trace blood, 1+ protein, turbid clarity. X-ray imaging and abdomen and pelvis CT scan that was done on 08/08/2024 identified interval postsurg ical change with new small bowel anastomoses in the left upper quadrant extending inferiorly from the anastomosis. An enlarged tubular structure measuring up to 14.7 cm is now well characterized but li beena represents dilated small bowel. Prominent surrounding mesenteric edema and ascites are present concerning for postoperative small bowel obstruction. Surgical re-consultation is recommended. Also numerous additional subacute and chronic interval findings without significant change. There is an interval ventral abdominal wall postsurgical change with resolution and previous bowel containing her augustine sac. Change in morphology of previous mesh material and entrapped fluid along incision. As noted, the patient was transferred to the acute care floor for higher level of care. Synopsis Of Events That Led To Admission: Ms. Yates is an 83-year-old patient with multiple medi rosales problems as noted, who was brought to the Emergency Department on 07/18/2024 with worsening abdom inal pain, nausea, and vomiting. Her workup identified small bowel obstruction secondary to a large complex ventral hernia with mild GI bleed. She had comorbid atrial fibrillation, on anticoagulation with hypertension. She has acute blood loss, leukocytosis, hypomagnesemia, and hypophosphatemia. Sh e required with acute surgical intervention. She had diagnostic laparoscopic exploratory surgery wit h small bowel resection, extensive adhesiolysis, and a FISH drain placed. She had an NG tube placed pr ior to that. That tube was removed on 08/01. She had an n.p.o. diet immediately after surgery and w as eventually advanced to a full liquid diet on 08/02. As she did have some loose stools and multipl e loose stools at times prior to coming to the unit. She was receiving TPN and IV electrolytes and t elemetry monitoring. Cardiac monitoring showed ST elevation and she was again managed by the Cardiol ogy Service. Due to her comorbid condition, she become significantly weak and of course had multiple lumbar surgeries with drains, leukocytosis, hypomagnesemia, hypophosphatemia, and required careful m edical monitoring. She was, therefore, thought to be a good candidate for aggressive inpatient rehab ilitation to help her return to her prior level of functioning and minimize the risk of rehospitaliza tion while her medical conditions are managed. Hospital Course: She did well the first 3 days in the hospital, then developed more abdominal pain, underwent a CT scan as noted above, did identify this new bowel obstruction with re-consultation of S yunier required and she was therefore, sent to the acute care floor for that. Progress made while she was able do therapy in terms of her physical therapy prior to going to the [facility] o[facility], she was able to ambulate with a rolling walker 25 feet twice, 40 feet once, 60 feet once with co ntact guard assistance. Wheelchair mobilization was 125 feet twice with standby assistance and verba l cues. Multiple [id number] done with standby assistance. Regarding her occupational therapy at t hunter of discharge, she was at contact guard for tub and shower, independent for eating. Upper body dr brady, min assist; lower body dressing, min assist. Again, discharged to acute care floor because o f bowel obstruction. Followup is of course with the GI Surgery service and hospitalist service. SYDNEE/RADHA Voice ID: [id number] Report ID: [id number]
== END 2024-08-08 03:10 | disposition short-term general hospital (02) | DRG 948 ==
LOC: 5TH 21:15 → 4TH 08-08 02:46 → 5TH 08-08 03:09
PROVIDERS: ADMIT Psychiatry & Neurology Neurology with Special Qualifications in Child Neurology; ATTEND Psychiatry & Neurology Neurology with Special Qualifications in Child Neurology
DX: R53.81 Other malaise (principal); D62 Acute posthemorrhagic anemia; K21.9 Gastro-esophageal reflux disease without esophagitis; I10 Essential (primary) hypertension; I48.91 Unspecified atrial fibrillation; E83.42 Hypomagnesemia; E83.39 Other disorders of phosphorus metabolism; Z48.815 Encounter for surgical aftercare following surgery on the digestive system
CPT/HCPCS: 36415; 74018; 74176; 80048; 80053; 81001; 82040; 83735; 84100; 84134; 85025; 87086; 87088; 93005; 94010; 97110; 97116; 97161; 97165; 97530; 97542; A4216; J2270; J7030; Q0162

== ENCOUNTER 2024-08-08 02:00 | Inpatient (IN) | payer OTHER ==
[2024-08-08] MEDS: HYDROMORPHONE HCL 1 MG/ML INJ IV ONE (04:02)
--- NOTE | 2024-08-08 05:24 | P.HP ---
Date of Service: 08/08/24 Certification for Inpatient Patient admitted to: Inpatient With expected LOS: >2 Midnights Practitioner: I am a practitioner with admitting privileges, knowledge of patient current condition, hospital course, and medical plan of care. Services: Services provided to patient in accordance with Admission requirements found in Title 42 Section 412.3 of the Code of Federal Regulations Patient History Date of Service: 08/08/24 Reason for admission: Abdominal Pain History of Present Illness: 83-year-old female with past medical history of history of atrial fibrillation on chronic anticoagulation, pulmonary embolism, multiple bowel obstructions with known large complex ventral hernia who underwent surgery by Dr. Faust. for bowel obstruction and was admitted to the rehab post surgery. Patient started having abdominal pain today associated with generalized weakness. and nausea and vomiting . Patient started having diffuse abdominal pain with distention. Denies any fever or chills but associated with generalized weakness. Pain is 10 out of 10 in severity Patient was assessed in the rehab and is admitted for further management to telemetry Allergies ampicillin Allergy (Verified 08/04/24 00:24) Bleeding gums SULFA (SULFONAMIDES) Allergy (Uncoded 09/01/15 14:20) Rash TETANUS TOXOID Allergy (Uncoded 09/01/15 14:20) Rash Home medications list reviewed: Yes Home Medications: Irbesartan [Avapro] 300 mg PO BEDTIME 09/01/15 Amlodipine [Norvasc*] 10 mg PO DAILY 02/27/24 Apixaban [Eliquis] 5 tab PO BID 02/27/24 Tramadol HCl [Ultram] 1 tab PO Q6H PRN 02/27/24 Metoprolol Tartrate [Lopressor*] 25 mg PO TID 03/21/24 Docusate [Colace Cap*] 100 mg PO BID cap 08/03/24 - Past Medical/Surgical History Has patient received pneumonia vaccine in the past: No Diabetic: No Past Medical History: Reviewed- Non-Contributory -: hip pain -: gerd -: gastritis -: htn -: back, neck pain, neck sprain, bk sprain -: chest wall pain -: abdominal injury -: cholelithiasis -: colon cancer -: Atrial fibrillation -: pulmonary embolism Past Surgical History: Reviewed- Non-Contributory -: Previous -: Tubal ligation -: tonillectomy -: adnoid sx -: ft sx -: sigmoid resection with colostomy - Family History Family History: Reviewed- Non-Contributory - Family History Father -: Cancer Notes: panceatic cancer Mother -: Heart disease, Hypertension - Social History Smoking Status: Former smoker Alcohol use: Yes CD- Drugs: No Caffeine use: Yes Place of Residence: Home Review of Systems 10-point ROS is otherwise unremarkable Physical Examination - Vital Signs Temperature: 97.9 F Blood Pressure: 132/68 Pulse: 102 Respirations: 16 Pulse Ox (%): 94 - Physical Exam General: Alert, Oriented x3, Moderate distress HEENT: Atraumatic, Normocephalic Neck: Supple, No Thyromegaly Respiratory: Clear to auscultation bilaterally, Normal air movement Cardiovascular: Regular rate/rhythm, Normal S1 S2 Capillary refill: <2 Seconds Gastrointestinal: Distended, Tenderness Musculoskeletal: No clubbing, No swelling Integumentary: No rashes Neurological: Normal speech, Normal strength at 5/5 x4 extr, Cranial nerves 3-12 intact Lymphatics: No axilla or inguinal lymphadenopathy Assessment and Plan - Plan Intractable abdominal pain Nausea and vomiting Dehydration h/o Recurrent small bowel obstruction secondary to large complex ventral hernia S/P Diagnostic Laparoscopy, Exploratory Laparotomy, Small Bowel Resection, Extensive Adhesiolysis H/o blood loss anemia Hypomagnesemia hypophosphatemia Atrial fibrillation on chronic anticoagulation History of pulmonary embolism anticoagulation Hypertension Patient was admitted to the hospital Pain control Started on IV hydration Will obtain a CT of the abdomen pelvis Surgical consult Will get a CBC CMP and electrolytes Continue home medications and titrate as needed Discussed with patient and family GI/DVT prophylaxis Advanced directive full code Discharge Plan: Rehab Plan to discharge in: 48 Hours Time Spent Managing Pts Care (In Minutes): 48
[2024-08-08 05:39] VITALS: BMI 29.6
[2024-08-08] MEDS: NA CHLORIDE 0.9% 1,000 ML IV SCH (06:00)
[2024-08-08] MEDS: ENOXAPARIN 40 MG/0.4 ML SQ SCH (10:02)
[2024-08-08] MEDS: HYDROMORPHONE HCL 0.5 MG/0.5 ML INJ IV PRN (10:45)
--- NOTE | 2024-08-08 10:58 | RAD REPORT ---
Procedure: Chest Single View HISTORY: Hypoxia COMPARISON: none FINDINGS: Left lung is hazy Right lung appears clear of acute infiltrate. PICC line in place. Heart is normal size. Mild elevation right hemidiaphragm. No significant pleural effusion noted. The heart is normal size. IMPRESSION: Left lung is hazy which may represent a combination of pleural effusion and pneumonia or atelectasis
[2024-08-08] MEDS: PIPER TAZO 3.375 GM in NA CHLORIDE 0.9% 100 ML IV SCH (16:05)
--- NOTE | 2024-08-08 17:07 | P.PN ---
Date of Service: 08/08/24 Patient seen and examined. She reports severe abdominal pain prior to transfer to the medical floor. She states her pain is better after she was given a dose of opioid. Last bowel movement was 08/05/2024. CT abdomen and pelvis revealed-tubular structure in the left iliac fossa noted which could be dilated small bowel. Patient seen and evaluated by general surgery Dr. Faust. Repeat CT abdomen and pelvis with oral contrast done. Patient has anastomotic leak per Dr. Faust. Results to be followed. Serial abdominal examination. Aggressive antibiotic therapy-IV meropenem.
--- NOTE | 2024-08-08 17:14 | RAD REPORT ---
EXAMINATION: Abdomen Pelvis Wo Contrast CLINICAL INDICATION: Female, 83 years old. Possible Abscess TECHNIQUE: CT abdomen and pelvis was performed, without IV contrast, as per department protocol. Axia l, sagittal and coronal reconstructions were obtained. One or more of the following dose reduction techniques were used: Automated exposure control, adjustment of the mA and kV according to the patien t size, and iterative reconstruction. Unless otherwise specified, incidental findings do not require dedicated imaging follow-up. COMPARISON: CTs of the abdomen and pelvis 08/08/2024 at 1:36 AM, and 07/20/2024. FINDINGS: The lack of intravenous contrast limits the sensitivity of this exam for evaluation of solid visceral organs, vascular structures, and retroperitoneum. LOWER CHEST: Stable moderate left layering pleural effusion. LIVER: Normal in size and contour. No focal lesion. BILIARY SYSTEM: Cholelithiasis. No pericholecystic fluid or fat stranding. SPLEEN: Normal size. No focal lesion. Punctate calcifications again seen. PANCREAS: No mass, ductal dilation, or alma-pancreatic fluid. ADRENALS: Normal; no mass. KIDNEYS AND URETERS: Normal size and contour. No hydronephrosis. URINARY BLADDER: Suboptimally distended, with findings as below. GASTROINTESTINAL TRACT: Redemonstration of an anastomotic suture line along small bowel in the left f lank. This communicates with a large ovoid collection containing air-fluid level, measuring 8.3 x 7.9 x 17.8 cm in greatest dimensions, with retraction opacified by orally ingested contrast, extendin g from the small bowel, across the anastomosis into the collection, as best appreciated on sagittal image 97/144. Another component of the collection, containing fluid and gas, not opacified with orall y ingested contrast, extends through medially into the pelvis, situated above the urinary bladder, which measures 9.0 x 5.2 x 7.2 cm. Adjacent fat stranding along all components, with no discrete evid ence of fistula formation, within limits of no IV contrast. A small component of collection containing fluid and gas extends along the left paracolic gutter, measuring 3.1 x 1.6 cm, with short segment wall thickening of the descending colon/sigmoid adjacent to this, suggesting hepatic inflammation, again with no discrete evidence of a fistula. No intra-abdominal free air. Trace free f luid in the pelvis. Sequelae of distal colonic resection again seen, with a colorectal anastomosis present APPENDIX: Appendix not visualized, but no inflammatory changes in region of appendix. LYMPH NODES: No lymphadenopathy. MUSCULOSKELETAL: No acute or suspicious osseous abnormality. ADDITIONAL FINDINGS: Diastases recti, and postsurgical sequelae of lower ventral hernia mesh repair. A stable ovoid collection measuring 5.3 x 2.4 cm in greatest axial dimensions is present just right of midline, overlying the mesh, suggesting a stable seroma. Right adnexal fluid density 3 cm cyst, st able. Stable fusiform aneurysmal dilation of the infrarenal abdominal aorta, measuring up to 4 cm in caliber. IMPRESSION: The previously visualized left flank elongated structure with air-fluid level shows communication wit h small bowel across the suture line, and is also contiguous with a collection of fluid and gas just superior to the bladder. This is most suggestive of a contained leak, originating at the site of the anastomosis. Additional findings as above. Other stable findings including cholelithiasis, seroma superficial to a ventral hernia mesh repair, a nd a fusiform infrarenal aortic aneurysm or or aortic aneurysm THIS REPORT CONTAINS FINDINGS THAT MAY BE CRITICAL TO PATIENT CARE. The findings were verbally commun icated via telephone to Alvin Faust MD on 08/08/2024 5:00 PM.
[2024-08-08] MEDS: Mupirocin NASAL 2 APPL/1 GM TUBE NAS SCH (21:40)
[2024-08-09] MEDS: Meropenem 1,000 MG in NA CHLORIDE 0.9% 100 ML IV SCH (00:29)
[2024-08-09 06:51] LABS: Absolute Lymphocytes (CBC) 0.6 K/uL (0.7-4.9); Absolute Monocytes 1.2 K/uL (0.1-1.3); Absolute Neutrophil 11.7 K/uL (1.8-8.0); Basophils % 0.1 % (0-1.3); Eosinophils % 0.1 % (0-4.4); Hematocrit 26.1 % (36.0-45.0); Hemoglobin 8.8 g/dL (12.0-15.0); Lymphocytes % 4.3 % (15.3-44.8); MCH 30.8 pg (27.0-35.0); MCHC 33.8 g/dL (32.0-36.0); MCV 91.3 fL (80-100); MPV 8.2 fL (7.6-11.3); Monocytes % 8.6 % (3.3-12.3); Neutrophils % 86.9 % (41.7-73.7); Nucleated Red Blood Cells % 0.1 % (0-0); Platelets 391 thou/uL (152-406); RBC Red Blood Cell Count 2.86 M/uL (3.86-4.86); Red Cell Distribution Width 15.1 % (12.1-15.2)
[2024-08-09 07:23] LABS: Albumin 1.8 g/dL (3.4-5.0); Albumin/Globulin Ratio 0.4 (1.1-1.8); Alkaline Phosphatase 73 U/L (45-117); Anion Gap 7.9 mEq/L (5.0-15.0); BUN Blood Urea Nitrogen 25 mg/dL (7-18); Bicarbonate 25 mEq/L (21-32); Bilirubin Total 0.4 mg/dL (0.2-1.0); Globulin 4.1 g/dL (2.3-3.5); Glomerular Filtration Rate 71 ml/min (=/>90); Glucose Level 104 mg/dL (74-106); Potassium 3.9 mEq/L (3.5-5.1); Protein, Total 5.9 g/dL (6.4-8.2); Sodium Level 136 mEq/L (136-145)
[2024-08-09 07:24] LABS: ALT/SGPT < 14 U/L (13-56); AST/SGOT < 10 U/L (15-37)
[2024-08-09 08:42] LABS: PT Prothrombin Time 19.1 SECONDS (9.4-12.5); PTT, Activated Partial Thromb 30.5 SECONDS (24.3-36.9); Protime INR 1.73
[2024-08-09] MEDS: HYDROMORPHONE HCL 1 MG/ML INJ IV PRN (09:09)
[2024-08-09 09:12] LABS: Blood Morphology Comment NOT SEEN (NOT SEEN); Differential Total Cells Count 100; Dohle Bodies PRESENT; Lymphocytes 1 % (15-42); Monocytes 6 % (0-10); Nucleated Red Blood Cells 1 /100WBC; Platelet Estimate ADEQ; Segmented Neutrophils 93 % (40-80); Toxic Granulation 1+
[2024-08-09] MEDS: FLUMAZENIL 0.1 MG/ML (5 mL VIAL) IV ONE (10:59)
[2024-08-09] MEDS: NALOXONE HCL 2 MG/2 ML VIAL ONE (10:59)
[2024-08-09] MEDS: FENTANYL CITR 100 MCG/2 ML ONE (11:00)
[2024-08-09] MEDS: NA CHLORIDE 0.9% 1,000 ML ONE (11:00)
[2024-08-09] MEDS: MIDAZOLAM HCL 5 ML ONE (11:00)
--- NOTE | 2024-08-09 15:16 | RAD REPORT ---
EXAMINATION: Aspiration Procedure INDICATION: CT Aspriation of Abdominal fluid collection Pre-procedure diagnosis: Left abdominal fluid collection Post-procedure diagnosis: Same as above. COMPLICATIONS: No immediate complications. PROCEDURE DETAILS: Consent: Informed consent for the procedure was obtained following discussion of the risks, benefits and alternatives was obtained. Time-out was performed prior to the procedure. Sedation: Moderate sedation (conscious sedation) Administered by: Nurse, or other independent traine d observer, with level of consciousness and vital signs continuously monitored. Total sedation administered: 1 mg Versed and 100 mcg Fentanyl. Total intra-service sedation time: 45 minutes. Biopsy: Initial scanning revealed large left lower abdomen collection of feculent fluid and gas exten ding to the pelvis. Local anesthesia was administered. Under CT guidance, a small needle was introduced into the collection lumen, and a variety of wires and dilators was introduced, until event ually a 12 [place] pigtail catheter was introduced into the lumen of the collection, and directed caudally. A small amount of liquid fecal material (3-5 mL), was aspirated, and sent to the lab for an alysis. The pigtail was formed, and the exterior part of the catheter was secured to the skin using a silk suture. Additional sampling description: None. Post-biopsy imaging findings: No immediate complications seen. Additional Details: Estimated blood loss: Less than 10 mL. IMPRESSION: Technically successful CT-guided drainage and aspiration of a left abdominal fluid collection.
[2024-08-09 16:05] LABS: Appearance VERY TURBID (CLEAR); Body Fluid Source OTHER; Color of fluid Brown (COLORLESS); Fluid Total Cells Count 0; Tube # SINGLE
[2024-08-09 16:06] LABS: Body Fluid WBC 0 /mm^3
--- NOTE | 2024-08-09 16:38 | P.PN ---
Subjective Date of Service: 08/09/24 Chief Complaint: Abdominal pain Patient reports left-sided abdominal pain, improved with opioids. She denies any BM or flatus. No vomiting. No recorded fever. Physical Examination - Vital Signs Temperature: 97.3 F Blood Pressure: 112/55 Pulse: 95 Respirations: 16 Pulse Ox (%): 96 - Studies Laboratory Data (last 24 hrs) 08/09/24 08/09/24 08/09/24 08:23 08:06 05:40 WBC Hgb Hct Plt Count PT 19.1 H INR 1.73 APTT 30.5 Cancelled Sodium 136 Potassium 3.9 BUN 25 H Creatinine 0.83 Glucose 104 Total Bilirubin 0.4 AST < 10 L ALT < 14 Alkaline Phosphatase 73 08/09/24 05:40 WBC 13.50 H Hgb 8.8 L D Hct 26.1 L Plt Count 391 PT INR APTT Sodium Potassium BUN Creatinine Glucose Total Bilirubin AST ALT Alkaline Phosphatase Assessment And Plan - Plan Physical examination General: Alert and oriented x3, NAD, HEENT: Conjunctiva not pale, anicteric sclera Neck: Supple, no elevated JVD Heart: Heart sounds 1 and 2 normal, regular rhythm, normal rate, no pedal edema Lungs: Clear to auscultation bilaterally, adequate breath sounds bilaterally, no rhonchi or crackles. Abdomen: Soft, nondistended, diffuse tenderness, hypoactive bowel sounds. Extremities: No tenderness, no deformity Skin: Normal skin turgor, no rash, no nodules or ulcers. Neuro: No focal motor deficit. Normal speech. Psychiatry: Normal mood, no agitation. Assessment and plan Intra-abdominal fluid collection History of recurrent small bowel obstruction status post small bowel resection Status post ventral hernia repair. Extensive adhesiolysis Continue IV opioids for pain control. Status post IR drainage of intra-abdominal fluid collection(only 3-5 ml fecal contaminated fluid drained) General Surgery Dr. Faust is following and suspect anastomotic leak. Drain left in place and hooked to suction to continue drainage. Aggressive IV antibiotics. Serial abdominal examination Keep n.p.o. Start TPN. Monitor and optimize electrolytes Anemia History of acute blood loss anemia Hemoglobin has been relatively stable. Continue to monitor CBC. Hypomagnesemia hypophosphatemia Resolved Monitor and replace as needed. Atrial fibrillation on chronic anticoagulation History of pulmonary embolism anticoagulation Patient is currently n.p.o. IV metoprolol every 6 hours as needed for RVR. Hypertension Patient is currently normotensive Hold antihypertensive Severe protein calorie malnutrition Patient is currently n.p.o. Start TPN. DVT prophylaxis: Lovenox Advanced directive: full code
[2024-08-09] MEDS: ENSURE ENLIVE 237 ML CAN PO SCH (21:00)
[2024-08-09] MEDS: APIXABAN 5 MG TABLET PO SCH (21:00)
[2024-08-09] MEDS ORDERED: APIXABAN 5 MG TABLET PO SCH (21:00)
[2024-08-09] MEDS ORDERED: HOME MED 1 EA UNK (Baclofen [Baclofen] 5 MG Tablet) PO SCH (21:00)
[2024-08-09] MEDS: BACLOFEN 10 MG TAB PO SCH (21:46)
[2024-08-10 05:42] LABS: Absolute Eosinophils 0.1 K/uL (0-0.5); Absolute Lymphocytes (CBC) 0.4 K/uL (0.7-4.9); Absolute Monocytes 0.5 K/uL (0.1-1.3); Absolute Neutrophil 6.5 K/uL (1.8-8.0); Basophils % 0.4 % (0-1.3); Eosinophils % 1.2 % (0-4.4); Hematocrit 23.7 % (36.0-45.0); Hemoglobin 7.7 g/dL (12.0-15.0); Lymphocytes % 4.7 % (15.3-44.8); MCHC 32.5 g/dL (32.0-36.0); MCV 92.1 fL (80-100); MPV 8.3 fL (7.6-11.3); Monocytes % 7.2 % (3.3-12.3); Neutrophils % 86.5 % (41.7-73.7); Platelets 358 thou/uL (152-406); RBC Red Blood Cell Count 2.58 M/uL (3.86-4.86); Red Cell Distribution Width 15.1 % (12.1-15.2)
[2024-08-10 06:01] LABS: Anion Gap 8.5 mEq/L (5.0-15.0); Magnesium 2.2 mg/dL (1.6-2.4); Phosphorus 2.8 mg/dL (2.5-4.9); Potassium 3.5 mEq/L (3.5-5.1)
[2024-08-10] MEDS ORDERED: POTASSIUM CL SA 10 MEQ TAB PO ONE (07:36)
[2024-08-10] MEDS: KCL 20 MEQ/100 mL IVPB 20 MEQ/100 ML BAG IV SCH (09:39)
[2024-08-10] MEDS: HYDROMORPHONE HCL 2 MG/ML inj IV PRN (14:42)
--- NOTE | 2024-08-10 15:44 | CON ---
Date of Consultation: 08/10/2024 History Of Present Illness: Patient is an 83-year-old female with the significant past medical histo ry of atrial fibrillation, pulmonary embolism, multiple bowel obstruction with large complex ventral hernia, who had underwent surgery by Dr. Faust for bowel obstruction and was admitted for rehab, [facility] surgery. Patient was having abdominal discomfort and was brought in from the rehab to the medical evaluation, MedSurg unit. Past Medical History: As per HPI. Social History: Nonsmoker. Nondrinker. Family History: Noncontributory. Medications: Meropenem. See MARs for other medications. Allergies: AMPICILLIN, SULFA DRUGS, TETANUS. Review of Systems: A 10-point review was performed. Physical Examination: General: This is an 83-year-old female, lying in bed, not in any acute cardiopulmonary distress. Vital Signs: Temperature 98, pulse 89, respirations 16, blood pressure 118/63. HEENT: Unremarkable. Neck: Supple. Lungs: Basal crackles. Heart: S1, S2. Regular. Abdomen: Soft. Bowel sounds present. FISH drains in place on bilateral lower quadrants. Extremities: Trace edema. Laboratory Data: Shows WBC 7.5 down from 13.5, hemoglobin 7.7, platelets 358. Chemistry shows BUN o f 17, creatinine 0.5. Body fluid cultures from 08/09 are pending, 4+ gram-negative rods with species and sensitivity and specificity pending. Assessment And Plan: 83-year-old female with multiple abdominal surgeries for adhesions and for vent ral hernia and recent laparoscopic surgery. Patient coming in from rehab with leukocytosis and gram- negative organism positive in her body fluid cultures. No blood cultures are available. Currently, on meropenem. Extensive adhesions in the abdominal area, status post ventral hernia repair. Continu e antibiotic for at least 2-4 weeks. Consider long-term acute care. We will follow the patient as n eeded. Thank you, Dr. Wild, for consult. NF/MODL Voice ID: [id number] Report ID: [id number]
[2024-08-10] MEDS: AA 5%/D20W/ELECTROLYTES-TPN 2,000 ML, Lipids 20% 250 ML with MULTIVITAMINS INJ 10 ML IV SCH (17:00)
[2024-08-10] MEDS: AMINO ACIDS 5 %/DEXTROSE 20 % 2,000 ML IV SCH (17:17)
[2024-08-10] MEDS ORDERED: D50W 25 GM/50 ML SYRINGE IV PRN (18:08)
[2024-08-10] MEDS ORDERED: DEXTROSE 10%-WATER 500 ML IV PRN (18:08)
[2024-08-10] MEDS ORDERED: GLUCAGON 1 MG/VIAL IM PRN (18:08)
[2024-08-10] MEDS ORDERED: D10W 125 ML IV PRN (18:14)
--- NOTE | 2024-08-10 18:14 | P.PN ---
Subjective Date of Service: 08/10/24 Chief Complaint: Abdominal pain Patient report no changes in her abdominal pain after drain placement. No vomiting. No recorded fever. Physical Examination - Vital Signs Temperature: 98.4 F Blood Pressure: 113/56 Pulse: 88 Respirations: 18 Pulse Ox (%): 90 - Studies Laboratory Data (last 24 hrs) 08/10/24 08/10/24 05:10 05:10 WBC 7.50 Hgb 7.7 L D Hct 23.7 L Plt Count 358 Sodium 137 Potassium 3.5 BUN 17 Creatinine 0.51 L Glucose 77 Phosphorus 2.8 Magnesium 2.2 Microbiology Data (last 24 hrs): 08/09/24 13:39 Body Fluid - Abdomen Gram Stain - Final 08/09/24 13:39 Body Fluid - Abdomen Gram Stain - Final Assessment And Plan - Plan Physical examination General: Alert and oriented x3, NAD, HEENT: Conjunctiva not pale, anicteric sclera Neck: Supple, no elevated JVD Heart: Heart sounds 1 and 2 normal, regular rhythm, normal rate, no pedal edema Lungs: Clear to auscultation bilaterally, adequate breath sounds bilaterally, no rhonchi or crackles. Abdomen: Soft, nondistended, diffuse tenderness, hypoactive bowel sounds. Extremities: No tenderness, no deformity Skin: Normal skin turgor, no rash, no nodules or ulcers. Neuro: No focal motor deficit. Normal speech. Psychiatry: Normal mood, no agitation. Assessment and plan Intra-abdominal fluid collection History of recurrent small bowel obstruction status post small bowel resection Status post ventral hernia repair. Extensive adhesiolysis Continue IV opioids for pain control. Status post IR drainage of intra-abdominal fluid collection(only 3-5 ml fecal contaminated fluid drained) General Surgery Dr. Faust is following and suspect anastomotic leak. Drain left in place and hooked to suction to continue drainage. Aggressive IV antibiotics. Infectious disease input appreciated. Dr. Faust is considering repeat surgery along the way. Serial abdominal examination Clear liquid diet per Dr. Faust, n.p.o. at midnight in case patient needs emergent surgery. TPN. Monitor and optimize electrolytes Anemia History of acute blood loss anemia Hemoglobin dropped from yesterday le. Continue to monitor CBC. Transfuse as needed for hemoglobin less than 7. Hypomagnesemia hypophosphatemia Resolved Monitor and replace as needed. Atrial fibrillation on chronic anticoagulation History of pulmonary embolism anticoagulation Patient is currently n.p.o. IV metoprolol every 6 hours as needed for RVR. No anticoagulation given drop in hemoglobin and impending surgery. Hypertension Patient is currently normotensive Antihypertensives on hold. Severe protein calorie malnutrition Clear liquid diet TPN. DVT prophylaxis: SCD Advanced directive: full code
[2024-08-10] MEDS ORDERED: Mupirocin NASAL 2 APPL/1 GM TUBE NAS SCH (21:00)
[2024-08-11 06:25] LABS: Absolute Eosinophils 0.1 K/uL (0-0.5); Absolute Lymphocytes (CBC) 0.4 K/uL (0.7-4.9); Absolute Monocytes 0.5 K/uL (0.1-1.3); Absolute Neutrophil 6.6 K/uL (1.8-8.0); Basophils % 0.3 % (0-1.3); Eosinophils % 0.9 % (0-4.4); Hematocrit 24.8 % (36.0-45.0); Hemoglobin 8.4 g/dL (12.0-15.0); MCH 30.8 pg (27.0-35.0); MCHC 33.9 g/dL (32.0-36.0); MCV 90.8 fL (80-100); MPV 7.8 fL (7.6-11.3); Monocytes % 6.7 % (3.3-12.3); Neutrophils % 87.1 % (41.7-73.7); Platelets 394 thou/uL (152-406); RBC Red Blood Cell Count 2.73 M/uL (3.86-4.86); Red Cell Distribution Width 14.8 % (12.1-15.2)
[2024-08-11 06:51] LABS: Anion Gap 8.3 mEq/L (5.0-15.0); Potassium 3.3 mEq/L (3.5-5.1); Prealbumin 3.9 mg/dL (20-40)
[2024-08-11 06:53] LABS: Phosphorus 1.2 mg/dL (2.5-4.9)
[2024-08-11 09:22] LABS: Specific Gravity 1.016 (1.005-1.030); Sqamous Epithelial None Seen /HPF (None Seen); Urine Bacteria None Seen /HPF (<20); Urine Bilirubin NEGATIVE (Negative); Urine Blood Negative (Negative); Urine Clarity Turbid (Clear); Urine Color Light-Yellow (Yellow); Urine Culture Reflex Order NOT NEEDED; Urine Glucose 4+ (Negative); Urine Ketones TRACE (Negative); Urine Microscopic Reflex YN ORDER UMIC; Urine Nitrite NEGATIVE (Negative); Urine Protein TRACE (Negative); Urine RBC <5 /HPF (None Seen); Urine Urobilinogen Normal (Normal); Urine WBC <5 /HPF (<5); Urine pH 5.5 (5.0-7.0)
[2024-08-11] MEDS: KCL 20 MEQ/100 mL IVPB 100 ML IV ONE (09:50)
--- NOTE | 2024-08-11 10:32 | CON ---
Date of Consultation: 08/08/2024 Brief History Of Present Illness: The patient is an 83-year-old woman known to me from recent hospit alization with a history of atrial fibrillation, on chronic anticoagulation. With pulmonary embolus and atrial fibrillation, there were multiple bowel obstructions in the past. Known to have a large c omplex ventral abdominal repair with complex abdominal wall history including tubal ligation, testing perforation, colon resection, colostomy creation, colostomy takedown, ventral hernia, multiple ventr al hernia repairs attempted with both synthetic and biologic mesh including past surgical reconstruct ion of abdominal wall, who presented to the hospital on previous admission within the past 3 weeks, cyn mosquera had recurrent small bowel obstruction and she did not successfully have medical management. As lamas ch, she was deemed appropriate for operative intervention. She was taken to the operating room where approximately 4-6 cm of her mid small bowel was taken. She had a [id number] stapled anastomosis w ith a hand-sewn common channel closure on approximately 07/22/2024. She improved. She was eating, h ad bowel function, had multiple bowel movements and was tolerating diet quite well, [facility] However, she stated on the previous Wednesday, she had significantly harder rehabilitation and felt a "pop sensation in her left upper quadrant. She noted some pain and weakness, fatigue, and ge neral malaise that occurred shortly thereafter. She continued to have worse abdominal pain and as lamas ch, she was transferred back for rehabilitation to the hospital with the complaints of the above stat ed issue. Past Medical History: Significant for hip pain; GERD; gastritis; hypertension; back pain; neck pain; back sprain; chest wall; chronic pain; cholelithiasis; colon cancer; atrial fibrillation; pulmonary embolism, on anticoagulation. Past Surgical History: Includes , tubal ligation, tonsillectomy, adenoidectomy, foot surger y, sigmoid colectomy with colostomy creation, colostomy takedown, ventral hernia repair on multiple o ccasions with biologic mesh including additional plastic surgery reconstruction, complex ventral abdo kannan wall closure, grafting, and small-bowel resection 3 weeks ago as described above with primary a bdominal closure. She had retained mesh within there, which was not removed in its entirety. Allergies: AMPICILLIN, SULFA, AND TETANUS. Home Medications: Include Avapro, Norvasc, Eliquis, tramadol, metoprolol, Levaquin, Reglan, Flagyl. Family History: Sever pancreatic cancer, heart disease, hypertension. Social History: Denies smoking, alcohol, recreational drug use. Review of Systems: 10-point review of systems other than HPI, denies. Physical Examination: General: At the time of examination, she is awake, alert, and oriented. Psychiatric: She is appropriate, conversive. HEENT: Normocephalic. Sclerae icteric. Mucous membranes are moist. Oropharynx is clear. Neck: Supple without JVD. Chest: Normal expansion and excursion. Cardiovascular: Regular rate and rhythm. Pulmonary: Clear to auscultation bilaterally. Abdomen: Soft with global tenderness to palpation worse in the left side of the abdomen and suprapub ic areas. No rebound. No guarding. No focal peritonitis. No significant skin changes. Her midlin e wound is well healed with taylor in place without any evidence of dehiscence. No leakage. No deyanira inage and no skin changes. Extremities: No clubbing, cyanosis, or edema. Laboratory Data: Her white blood cell count is 13.5, hemoglobin is 8.8, hematocrit of 26.1, platelet count is 391. Her PT is 91, INR is 1.73, PTT 30.5. Chemistry showed a sodium 136, potassium was 3. 9, chloride 107, carbon dioxide 25, BUN 25, creatinine 0.83, glucose is 104. AST less than 10, ALT l ess than 14, alkaline phosphatase is 73. She had a CT scan of the abdomen and pelvis, which was offi cially read as redemonstration of anastomotic suture line along the small bowel in the left flank moy t communicates with a large ovoid collection containing air-fluid level measuring 8.3 x 7.9 x 17.8 cm in greatest dimension with retraction opacified by oral ingested contrast extending from small bowel across the anastomosis into the collection as best appreciated on sagittal sections. Another compon ent of collection containing fluid and gas not opacified with oral ingested material extends medially into the pelvis situated by the urinary bladder, which measures 9 x 5.2 x 7.2, adjacent fat strandin g along all components with no discrete evidence of fistula formation within limits of no IV contrast . A small component of collection containing fluid and gas in the pericolic gutter on the left side measuring 3.1 x 1.6 with short segment wall thickening, descending colon sigmoid adjacent to this, lamas ggesting hepatic inflammation. Again, no discrete evidence of fistula. No intraabdominal free air. Trace free fluid in the pelvis. Sequelae of distal colonic resection again seen with colorectal vignesh stomosis present. Assessment And Plan: This is an 83-year-old woman with a complex abdominal history and complex medic al comorbidities as described above, who presents with obvious abscess versus leak from previous surg ashley 3 weeks ago. 1.IV fluid hydration. 2.Antibiotic coverage. 3.As this is an unusual presentation at this timing for her to have a leak of this character, at thi s time, I have opted for placement of a percutaneous drain by Interventional Radiology, as the patien t did not want surgical intervention at this time. She opted to try drainage at this time. I have e xplained, however, that if the drainage is unsuccessful after several days, optimally reducing the si ze of this, we will reimage it and if there is not significant improvement and she continues shows no signs of worsening of overall condition, we will take her and continue the drainage at that point. However, if she shows any non-reassuring signs, worsening abdominal pain, signs of infection/inflamma tion where the drain is not adequately drained collection, I have explained that I would highly recom mend return to the operating room for a repeat laparotomy, washout, possible diversion and/or small-b owel resection, possible intestinal resection of other types, possible intestinal diversion, and pam cated procedures. The patient displayed understanding of above stated plan, agreed to proceed as ind icated. LEIA/RADHA Voice ID: [id number] Report ID: [id number]
[2024-08-11] MEDS: POTASSIUM PHOS IN 0.9 % NACL 15 MMOL/250 ML BAG IV ONE (12:07)
[2024-08-11] MEDS ORDERED: AMINO ACIDS 5 %/DEXTROSE 20 % 2,000 ML, Lipids 20% 250 ML with MULTIVITAMINS INJ 10 ML IV SCH (17:00)
[2024-08-11] MEDS: AMINO ACIDS 5 %/DEXTROSE 20 % 2,000 ML, Lipids 20% 250 ML with MULTIVITAMINS INJ 10 ML IV SCH (17:00)
--- NOTE | 2024-08-11 17:42 | P.PN ---
Subjective Date of Service: 08/11/24 Chief Complaint: Abdominal pain Patient states her abdominal pain is better today. No recorded fever. Patient reported she had a large bowel movement last night No vomiting. Dr. Faust aspirated about 300 ml dark-colored malodorous fluid from the abdominal drain today. Physical Examination - Vital Signs Temperature: 97.5 F Blood Pressure: 146/78 Pulse: 84 Respirations: 16 Pulse Ox (%): 95 - Studies Laboratory Data (last 24 hrs) 08/11/24 08/11/24 08/11/24 06:00 06:00 06:00 WBC 7.50 Hgb 8.4 L D Hct 24.8 L Plt Count 394 Sodium 135 L Potassium 3.3 L BUN 16 Creatinine 0.56 Glucose 209 H Phosphorus 1.2 L* Magnesium 2.0 Triglycerides 146 08/10/24 08/10/24 08/10/24 18:15 18:15 18:15 WBC Cancelled Hgb Cancelled Hct Cancelled Plt Count Cancelled Sodium Cancelled Potassium Cancelled BUN Cancelled Creatinine Cancelled Glucose Cancelled Phosphorus Cancelled Magnesium Cancelled Triglycerides Cancelled 08/10/24 08/10/24 08/10/24 18:08 18:08 18:08 WBC Cancelled Hgb Cancelled Hct Cancelled Plt Count Cancelled Sodium Cancelled Potassium Cancelled BUN Cancelled Creatinine Cancelled Glucose Cancelled Phosphorus Cancelled Magnesium Cancelled Triglycerides Cancelled Microbiology Data (last 24 hrs): 08/09/24 13:39 Body Fluid - Abdomen Gram Stain - Final 08/09/24 13:39 Body Fluid - Abdomen Culture & Sensitivity - Final Escherichia Coli Enterococcus Faecium 08/09/24 13:39 Body Fluid - Abdomen Gram Stain - Final Assessment And Plan - Plan Physical examination General: Alert and oriented x3, NAD, HEENT: Conjunctiva not pale, anicteric sclera Neck: Supple, no elevated JVD Heart: Heart sounds 1 and 2 normal, regular rhythm, normal rate, no pedal edema Lungs: Clear to auscultation bilaterally, adequate breath sounds bilaterally, no rhonchi or crackles. Abdomen: Soft, nondistended, diffuse tenderness, hypoactive bowel sounds. Extremities: No tenderness, no deformity Skin: Normal skin turgor, no rash, no nodules or ulcers. Neuro: No focal motor deficit. Normal speech. Psychiatry: Normal mood, no agitation. Assessment and plan Intra-abdominal fluid collection History of recurrent small bowel obstruction status post small bowel resection Status post ventral hernia repair. Extensive adhesiolysis Continue IV opioids for pain control. Status post IR drainage of intra-abdominal fluid collection(only 3-5 ml fecal contaminated fluid drained) General Surgery Dr. Faust is following and suspect anastomotic leak. Drain left in place and hooked to suction to continue drainage. Dr. Faust drained about 300 mL documented on low-dose fluid today and recommended intermittent irrigation and aspiration of the drain content. Intra-abdominal fluid collection grew E. coli and Enterococcus. Repeat surgery is imminent according to Dr. Faust. Continue IV meropenem. Serial abdominal examination Keep n.p.o. Continue TPN Monitor and optimize electrolytes Anemia History of acute blood loss anemia Hemoglobin has been relatively stable. Continue to monitor CBC. Hypomagnesemia hypophosphatemia Resolved Monitor and replace as needed. Atrial fibrillation on chronic anticoagulation History of pulmonary embolism anticoagulation Patient is currently n.p.o. IV metoprolol every 6 hours as needed for RVR. Hypertension Patient is mildly hypertensive today Continue hold antihypertensive Severe protein calorie malnutrition Patient is currently n.p.o. Continue TPN. DVT prophylaxis: Lovenox Advanced directive: full code
[2024-08-11 21:25] LABS: Absolute Basophils 0.1 K/uL (0-0.5); Absolute Eosinophils 0.2 K/uL (0-0.5); Absolute Lymphocytes (CBC) 0.8 K/uL (0.7-4.9); Absolute Monocytes 0.9 K/uL (0.1-1.3); Absolute Neutrophil 6.8 K/uL (1.8-8.0); Basophils % 0.6 % (0-1.3); Eosinophils % 2.5 % (0-4.4); Hematocrit 26.6 % (36.0-45.0); Hemoglobin 9.2 g/dL (12.0-15.0); Lymphocytes % 9.5 % (15.3-44.8); MCH 31.1 pg (27.0-35.0); MCHC 34.6 g/dL (32.0-36.0); MCV 89.6 fL (80-100); MPV 7.6 fL (7.6-11.3); Monocytes % 9.7 % (3.3-12.3); Neutrophils % 77.7 % (41.7-73.7); Platelets 412 thou/uL (152-406); RBC Red Blood Cell Count 2.97 M/uL (3.86-4.86)
[2024-08-11 21:50] LABS: Albumin 1.7 g/dL (3.4-5.0); Albumin/Globulin Ratio 0.4 (1.1-1.8); Anion Gap 8.7 mEq/L (5.0-15.0); Bilirubin Total 0.3 mg/dL (0.2-1.0); Globulin 4.4 g/dL (2.3-3.5); Magnesium 1.9 mg/dL (1.6-2.4); Phosphorus 1.8 mg/dL (2.5-4.9); Potassium 3.7 mEq/L (3.5-5.1); Protein, Total 6.1 g/dL (6.4-8.2)
[2024-08-11] MEDS: TRAZODONE 50 MG TABLET PO PRN (22:44)
[2024-08-11] MEDS ORDERED: HYDROMORPHONE HCL 2 MG/ML inj IV PRN (23:22)
[2024-08-12] MEDS: HYDROMORPHONE HCL 1 MG/ML INJ IV PRN (04:20)
[2024-08-12 07:43] LABS: Absolute Eosinophils 0.2 K/uL (0-0.5); Absolute Lymphocytes (CBC) 0.7 K/uL (0.7-4.9); Absolute Monocytes 0.6 K/uL (0.1-1.3); Absolute Neutrophil 5.8 K/uL (1.8-8.0); Basophils % 0.5 % (0-1.3); Eosinophils % 2.9 % (0-4.4); Hemoglobin 8.7 g/dL (12.0-15.0); Lymphocytes % 9.7 % (15.3-44.8); MCH 30.1 pg (27.0-35.0); MCHC 33.6 g/dL (32.0-36.0); MCV 89.8 fL (80-100); MPV 7.5 fL (7.6-11.3); Monocytes % 8.5 % (3.3-12.3); Neutrophils % 78.4 % (41.7-73.7); Platelets 415 thou/uL (152-406); Red Cell Distribution Width 15.1 % (12.1-15.2)
[2024-08-12 08:03] LABS: Anion Gap 8.1 mEq/L (5.0-15.0); Magnesium 1.8 mg/dL (1.6-2.4); Phosphorus 1.8 mg/dL (2.5-4.9); Potassium 3.1 mEq/L (3.5-5.1); Prealbumin 5.5 mg/dL (20-40)
[2024-08-12 09:33] LABS: Platelet Estimate ADEQ; Platelets Clumped FEW; White Blood Cell Scan OK (OK)
[2024-08-12 09:34] LABS: Blood Morphology Comment NOT SEEN (NOT SEEN)
--- NOTE | 2024-08-12 10:39 | PN ---
Subjective: Please note, I am covering for Dr. Faust this weekend. I have reviewed the medical records in detail and this is a daily evaluation of the patient's condition and progress. The patient today is awake, alert, has abdominal pain which is being managed well by medication. She has no nausea or vomiting. She did have a bowel movement yesterday and she has a drain in place, which is being irrigated by the nursing staff with saline twice a day and Dr. Wild is going to aspirate the drain later today to see if we can get more of the contents out. The patient's vital signs are stable. The patient is afebrile. Laboratory data shows white count of 7.5, slight left shift. H and H are stable. The drain has minimal amount of output at this point. Objective: Abdomen is soft, nondistended, minimal incisional tenderness with no evidence of peritonitis. Dressing is clean dry and intact. Assessment: An 83-year-old female status post exploratory laparotomy with small bowel resection with primary anastomosis, now with a likely anastomotic leak. Recommendation: Continue IV hydration. Continue antibiotics. The patient is scheduled for CAT scan on Wednesday to see if the leakage has stopped. If so, percutaneous drainage would continue and antibiotics. If not, the patient will probably require surgery. Plan of care was discussed in detail with the patient and the son. Yesterday, I spoke in detail with Dr. Faust about this patient's condition. Clinically, the patient is stable, not septic, and improving slowly on TPN and antibiotics. There is no need for an urgent surgical intervention at this time. However, I do believe the patient will require an exploration and drainage if medical management and conservative treatment do not work. /MODL Voice ID: [id number] Report ID: [id number] BERRY
[2024-08-12] MEDS: POTASSIUM PHOS IN 0.9 % NACL 15 MMOL/250 ML BAG IV SCH (12:39)
[2024-08-12] MEDS: MAGNESIUM SULFATE 1 gm IVPB 1 GM/100 ML BAG IV SCH (12:39)
--- NOTE | 2024-08-12 14:37 | P.PN ---
Subjective Date of Service: 08/12/24 Chief Complaint: Abdominal pain No major changes from yesterday. No BM. No recorded fever. About 190 mL of malodorous fluid drained after irrigation of the intra-abdominal drain today. No vomiting. Physical Examination - Vital Signs Temperature: 98.2 F Blood Pressure: 142/88 Pulse: 89 Respirations: 16 Pulse Ox (%): 96 - Studies Laboratory Data (last 24 hrs) 08/12/24 08/12/24 08/12/24 07:35 07:35 07:35 WBC 7.50 Hgb 8.7 L Hct 26.0 L Plt Count 415 H Sodium 138 Potassium 3.1 L D BUN 9 Creatinine 0.37 L Glucose 128 H Phosphorus 1.8 L Magnesium 1.8 Total Bilirubin AST ALT Alkaline Phosphatase Triglycerides 150 08/11/24 08/11/24 08/11/24 21:15 21:15 20:04 WBC 8.80 Hgb 9.2 L D Hct 26.6 L Plt Count 412 H Sodium 137 Potassium 3.7 BUN 12 Creatinine 0.51 L Glucose 116 H Phosphorus 1.8 L Magnesium 1.9 Cancelled Total Bilirubin 0.3 AST 29 ALT 37 Alkaline Phosphatase 71 Triglycerides Microbiology Data (last 24 hrs): 08/09/24 13:39 Body Fluid - Abdomen Gram Stain - Final 08/09/24 13:39 Body Fluid - Abdomen Culture & Sensitivity - Final Escherichia Coli Enterococcus Faecium Assessment And Plan - Plan Physical examination General: Alert and oriented x3, NAD, HEENT: Conjunctiva not pale, anicteric sclera Neck: Supple, no elevated JVD Heart: Heart sounds 1 and 2 normal, regular rhythm, normal rate, no pedal edema Lungs: Clear to auscultation bilaterally, adequate breath sounds bilaterally, no rhonchi or crackles. Abdomen: Soft, nondistended, diffuse tenderness, hypoactive bowel sounds. Extremities: No tenderness, no deformity Skin: Normal skin turgor, no rash, no nodules or ulcers. Neuro: No focal motor deficit. Normal speech. Psychiatry: Normal mood, no agitation. Assessment and plan Intra-abdominal fluid collection History of recurrent small bowel obstruction status post small bowel resection Status post ventral hernia repair. Extensive adhesiolysis Continue IV opioids for pain control. Status post IR drainage of intra-abdominal fluid collection(only 3-5 ml fecal contaminated fluid drained during initial IR placement) General Surgery Dr. Faust is following and suspect anastomotic leak. Drain left in place and hooked to suction to continue drainage. Dr. Faust suctioned out about 300 mL dark-colored malodorous fluid 08/11 from the intra-abdominal drain. About 190 mL suctioned out today, and still loos dark-colored and malodorous. Intra-abdominal fluid collection grew E. coli and Enterococcus. Repeat surgery is imminent according to Dr. Faust. Continue IV meropenem. Serial abdominal examination Keep n.p.o. Continue TPN Monitor and optimize electrolytes Anemia History of acute blood loss anemia Hemoglobin has been relatively stable. Continue to monitor CBC. Hypomagnesemia hypophosphatemia Monitor and replace as needed. Atrial fibrillation on chronic anticoagulation History of pulmonary embolism anticoagulation Patient is currently n.p.o. Heart rate is currently controlled. IV metoprolol every 6 hours as needed for RVR. Hypertension Patient is mildly hypertensive today Continue to hold antihypertensive Severe protein calorie malnutrition Patient is currently n.p.o. Continue TPN. DVT prophylaxis: Lovenox Advanced directive: full code
[2024-08-12] MEDS: AMINO ACIDS 5 %/DEXTROSE 20 % 2,000 ML IV SCH (18:03)
[2024-08-13 05:40] LABS: Absolute Basophils 0.1 K/uL (0-0.5); Absolute Eosinophils 0.4 K/uL (0-0.5); Absolute Monocytes 0.9 K/uL (0.1-1.3); Basophils % 0.8 % (0-1.3); Eosinophils % 5.3 % (0-4.4); Hematocrit 29.5 % (36.0-45.0); Hemoglobin 10.2 g/dL (12.0-15.0); Lymphocytes % 12.3 % (15.3-44.8); MCHC 34.5 g/dL (32.0-36.0); MCV 89.9 fL (80-100); MPV 7.5 fL (7.6-11.3); Monocytes % 10.4 % (3.3-12.3); Neutrophils % 71.2 % (41.7-73.7); Nucleated Red Blood Cells % 0.2 % (0-0); Platelets 448 thou/uL (152-406); RBC Red Blood Cell Count 3.28 M/uL (3.86-4.86); Red Cell Distribution Width 15.2 % (12.1-15.2)
[2024-08-13 05:49] LABS: Anion Gap 8.3 mEq/L (5.0-15.0); Phosphorus 2.2 mg/dL (2.5-4.9); Potassium 3.3 mEq/L (3.5-5.1); Prealbumin 8.4 mg/dL (20-40)
[2024-08-13] MEDS: POTASSIUM PHOS IN 0.9 % NACL 15 MMOL/250 ML BAG IV ONE (08:59)
--- NOTE | 2024-08-13 09:15 | PN ---
Date of Progress Note: 08/13/2024 Subjective: The patient is awake, alert, complaining of slightly increased abdominal pain. Objective: Vital Signs: Stable. She is afebrile. Laboratory Data: Reviewed. White count is 8.4, H and H are 10.2 and 29.5, platelets are 448. Chemistry reviewed. The phosphorus is low and being replaced. Yesterday, approximately 380 cc came out of the drain and 170 came out this morning. Assessment: Status post small bowel resection with anastomotic leak. Recommendations: Continue antibiotics and TPN. The patient will get a repeat CT and will likely need surgical intervention based on the result. The patient does not have sepsis at this time. The patient is clinically stable. Dr. Faust will resume care tomorrow morning. ORI/RADHA Voice ID: [id number] Report ID: [id number] BERRY
[2024-08-13] MEDS: HYDROMORPHONE HCL 1 MG/ML INJ IV PRN (09:31)
--- NOTE | 2024-08-13 14:15 | P.PN ---
Subjective Date of Service: 08/13/24 Chief Complaint: Abdominal pain Patient reports no change in her abdominal pain. No BM. She has been afebrile About 120 mL of malodorous fluid drained after irrigation of the intra-abdominal drain today. Physical Examination - Vital Signs Temperature: 97.9 F Blood Pressure: 125/74 Pulse: 94 Respirations: 16 Pulse Ox (%): 96 - Studies Laboratory Data (last 24 hrs) 08/13/24 08/13/24 08/13/24 05:17 05:17 05:17 WBC 8.40 Hgb 10.2 L D Hct 29.5 L Plt Count 448 H Sodium 135 L Potassium 3.3 L BUN 11 Creatinine 0.47 L Glucose 126 H Phosphorus 2.2 L Magnesium 2.0 Triglycerides 181 H Microbiology Data (last 24 hrs): 08/09/24 13:39 Body Fluid - Abdomen Gram Stain - Final 08/09/24 13:39 Body Fluid - Abdomen Anaerobic Culture - Final NO ANAEROBES GROWN. Assessment And Plan - Plan Physical examination General: Alert and oriented x3, NAD, HEENT: Conjunctiva not pale, anicteric sclera Neck: Supple, no elevated JVD Heart: Heart sounds 1 and 2 normal, regular rhythm, normal rate, no pedal edema Lungs: Clear to auscultation bilaterally, adequate breath sounds bilaterally, no rhonchi or crackles. Abdomen: Soft, nondistended, diffuse tenderness, normal bowel sounds. Extremities: No tenderness, no deformity Skin: Normal skin turgor, no rash, no nodules or ulcers. Neuro: No focal motor deficit. Normal speech. Psychiatry: Normal mood, no agitation. Assessment and plan Intra-abdominal fluid collection History of recurrent small bowel obstruction status post small bowel resection Status post ventral hernia repair. Extensive adhesiolysis Continue IV opioids for pain control. Status post IR drainage of intra-abdominal fluid collection(only 3-5 ml fecal contaminated fluid drained during initial IR placement) General Surgery Dr. Faust is following and suspect anastomotic leak. Drain left in place and hooked to suction to continue drainage. Dr. Faust suctioned out about 300 mL dark-colored malodorous fluid from the intra-abdominal drain on 08/11. About 190 mL suctioned out 08/12, 120 sunctioned on 08/13. Intra-abdominal fluid collection grew E. coli and Enterococcus. Repeat surgery is imminent according to Dr. Faust. Continue IV meropenem. Serial abdominal examination Keep n.p.o. Continue TPN Monitor and optimize electrolytes Anemia History of acute blood loss anemia Hemoglobin has been stable. Continue to monitor CBC. Hypomagnesemia hypophosphatemia Monitor and replace as needed. Atrial fibrillation on chronic anticoagulation History of pulmonary embolism anticoagulation Patient is currently n.p.o. IV metoprolol every 6 hours as needed for RVR. Hypertension Stable. Continue to hold antihypertensive Severe protein calorie malnutrition Patient is currently n.p.o. Continue TPN. DVT prophylaxis: Lovenox Advanced directive: full code
[2024-08-14 05:40] LABS: Anion Gap 6.2 mEq/L (5.0-15.0); Magnesium 1.9 mg/dL (1.6-2.4); Phosphorus 2.4 mg/dL (2.5-4.9); Potassium 3.2 mEq/L (3.5-5.1)
[2024-08-14] MEDS: POTASSIUM PHOS IN 0.9 % NACL 15 MMOL/250 ML BAG IV ONE (09:02)
[2024-08-14 09:14] LABS: Absolute Basophils 0.1 K/uL (0-0.5); Absolute Eosinophils 0.6 K/uL (0-0.5); Absolute Lymphocytes (CBC) 1.2 K/uL (0.7-4.9); Absolute Monocytes 1.2 K/uL (0.1-1.3); Absolute Neutrophil 6.6 K/uL (1.8-8.0); Basophils % 0.7 % (0-1.3); Eosinophils % 5.9 % (0-4.4); Hematocrit 27.7 % (36.0-45.0); Hemoglobin 9.4 g/dL (12.0-15.0); Lymphocytes % 12.8 % (15.3-44.8); MCH 30.5 pg (27.0-35.0); MCV 89.6 fL (80-100); MPV 7.3 fL (7.6-11.3); Monocytes % 12.4 % (3.3-12.3); Neutrophils % 68.2 % (41.7-73.7); Nucleated Red Blood Cells % 0.1 % (0-0); Platelets 505 thou/uL (152-406); RBC Red Blood Cell Count 3.09 M/uL (3.86-4.86); Red Cell Distribution Width 15.2 % (12.1-15.2)
[2024-08-14 12:14] LABS: Differential Total Cells Count 100; Segmented Neutrophils 70 % (40-80)
[2024-08-14 12:15] LABS: Atypical Lymphocytes 1 %; Blood Morphology Comment NOT SEEN (NOT SEEN); Eosinophils 5 % (0-3); Lymphocytes 11 % (15-42); Metamyelocytes 1 % (0-0); Monocytes 11 % (0-10); Myelocytes 1 % (0-0); Platelet Estimate INCR
--- NOTE | 2024-08-14 13:03 | RAD REPORT ---
EXAMINATION: CT Abdomen Pelvis W Contrast CLINICAL INDICATION: Female, 83 years old. Intrabdominal collection TECHNIQUE: CT abdomen and pelvis was performed, after the administration of IV contrast, [facility] Axial, sagittal and coronal reconstructions were obtained. One or more of the following dose reduction techniques were used: Automated exposure control, adjustment of the mA and k V according to patient size, and iterative reconstruction. Unless otherwise specified, incidental findings do not require dedicated imaging follow-up. COMPARISON: 08/08/2024 CT abdomen and pelvis FINDINGS: LOWER CHEST: Moderate layering left and trace right pleural effusions, stable. Underlying segmental a telectasis on the left. No new focal airspace opacity LIVER: Normal in size and contour. No suspicious focal lesion. 7 mm subcapsular right lobe fluid dens ity cyst, benign in appearance BILIARY SYSTEM: Layering mineralized calculi along the neck and body. SPLEEN: Normal size. No focal lesion. PANCREAS: No mass, ductal dilation, or alma-pancreatic fluid. ADRENALS: Normal; no mass. KIDNEYS: Normal size and contour. No hydronephrosis. Mid to lower pole right renal 1.[address] URINARY BLADDER: Unremarkable. GASTROINTESTINAL TRACT: Pigtail drainage catheter resides within the known collection extending from the left lower quadrant to the deep pelvis, with a component just superior to the bladder. Orally ingested hyperdense contrast material present within the collection lumen, appears to be of less dens ity than the rectal residual contrast, suggesting extrusion of newly ingested oral contrast. The collection overall demonstrates interval decrease in size, now measuring up to 11.6 cm in greatest ob lique craniocaudal extent, and 2.4 cm in thickness, previously measured up to 17.8 cm. Suspected point of leakage along the small bowel at the level of the anastomosis, series 201 image 55/99. Small collection containing punctate locules of gas, just inferior and deep to the anastomosis, and anterior to the psoas muscle shows some interval decrease in size now measuring 2.1 x 1.5 cm, previou sly measured 3.1 x 1.6 cm, with partial improvement of adjacent fat stranding. APPENDIX: Appendix not visualized, but no inflammatory changes in region of appendix. LYMPH NODES: No lymphadenopathy. MUSCULOSKELETAL: No acute or suspicious osseous abnormality. ADDITIONAL FINDINGS: Infrarenal abdominal aortic aneurysm, sac measures 4.1 x 3.7 cm, essentially sta ble. No mural thrombosis appreciated. Marginally enhancing ovoid collection just anterior to a lower abdominal hernia repair mesh measures 6.1 x 1.5 cm, with differences in size possibly related t o patient positioning. IMPRESSION: Marked interval decrease in size of the suspected anastomotic collection in the left lower quadrant e xtending to the deep pelvis. Appearance of new orally ingested contrast opacifying the collection, with suspected point of leakage along the left flank small bowel at the level of the anastomosis. Partial improvement of inflammatory fat stranding and a small nonopacified collection adjacent to the small bowel adventitia in the left flank. Other incidental findings as above. THIS REPORT CONTAINS FINDINGS THAT MAY BE CRITICAL TO PATIENT CARE. The findings were verbally commun icated via telephone to Alvin Faust MD on 08/14/2024 1:00 PM.
[2024-08-14] MEDS ORDERED: NALOXONE 0.4 MG/ML VIAL IV PRN (14:43)
--- NOTE | 2024-08-14 16:58 | P.PN ---
Subjective Date of Service: 08/14/24 Chief Complaint: Abdominal pain Patient reports no changes in her abdominal pain. No BM. She has been afebrile. Patient reports uncontrolled pain. Physical Examination - Vital Signs Temperature: 98.0 F Blood Pressure: 137/77 Pulse: 102 Respirations: 16 Pulse Ox (%): 94 - Studies Laboratory Data (last 24 hrs) 08/14/24 08/14/24 08/14/24 08:52 05:16 05:16 WBC 9.70 Hgb 9.4 L Hct 27.7 L Plt Count 505 H Sodium 139 Potassium 3.2 L BUN 14 Creatinine 0.42 L Glucose 133 H Phosphorus 2.4 L Magnesium 1.9 Triglycerides 195 H Assessment And Plan - Plan Physical examination General: Alert and oriented x3, NAD, HEENT: Conjunctiva not pale, anicteric sclera Neck: Supple, no elevated JVD Heart: Heart sounds 1 and 2 normal, regular rhythm, normal rate, no pedal edema Lungs: Clear to auscultation bilaterally, adequate breath sounds bilaterally, no rhonchi or crackles. Abdomen: Soft, nondistended, diffuse tenderness, normal bowel sounds. Extremities: No tenderness, no deformity Skin: Normal skin turgor, no rash, no nodules or ulcers. Neuro: No focal motor deficit. Normal speech. Psychiatry: Normal mood, no agitation. Assessment and plan Intra-abdominal fluid collection History of recurrent small bowel obstruction status post small bowel resection Status post ventral hernia repair. Extensive adhesiolysis Continue IV opioids for pain control. Status post IR drainage of intra-abdominal fluid collection(only 3-5 ml fecal contaminated fluid drained during initial IR placement) General Surgery Dr. Faust is following and suspect anastomotic leak. Drain left in place and hooked to suction to continue drainage. Dr. Faust suctioned out about 300 mL dark-colored malodorous fluid from the intra-abdominal drain on 08/11. About 190 mL suctioned out 08/12, 120 sunctioned on 08/13. Intra-abdominal fluid collection grew E. coli and Enterococcus. Repeat CT abdomen and pelvis with oral contrast confirms anastomotic leakage. Continue IV meropenem. Serial abdominal examination Keep n.p.o. Continue TPN. Dr. Faust is following and deciding on surgery. Monitor and optimize electrolytes. Patient with uncontrolled pain, family is concerned about extended periods between IV and Dilaudid administration causing uncontrolled pain. Nursing staff explained patient was observed to be sleeping during those intervals at night. IV hydromorphone pushes changed to DEPARTMENT OPERATIONS MANAGER for patient controlled analgesia. Titrate DEPARTMENT OPERATIONS MANAGER for pain control. Anemia History of acute blood loss anemia Hemoglobin has been stable. Continue to monitor CBC. Hypomagnesemia hypophosphatemia Monitor and replace as needed. Atrial fibrillation on chronic anticoagulation History of pulmonary embolism anticoagulation Patient is currently n.p.o. IV metoprolol every 6 hours as needed for RVR. Pain control. Hypertension Stable. Continue to hold antihypertensive Severe protein calorie malnutrition Patient is currently n.p.o. Prealbumin level is improving Continue TPN. Pressure ulcer precautions. DVT prophylaxis: Lovenox Advanced directive: full code
[2024-08-14] MEDS: HYDROMORPHONE/PCA 10 MG/50 ML SYR IV PRN (17:04)
[2024-08-14] MEDS: FENTANYL 25 MCG/PATCH TD SCH (18:03)
[2024-08-14] MEDS: HYDROMORPHONE HCL 1 MG/ML INJ IV ONE (18:03)
[2024-08-15 05:41] LABS: Absolute Basophils 0.1 K/uL (0-0.5); Absolute Eosinophils 0.5 K/uL (0-0.5); Absolute Lymphocytes (CBC) 1.1 K/uL (0.7-4.9); Absolute Monocytes 0.9 K/uL (0.1-1.3); Absolute Neutrophil 5.6 K/uL (1.8-8.0); Basophils % 0.6 % (0-1.3); Eosinophils % 6.5 % (0-4.4); Hematocrit 23.8 % (36.0-45.0); Hemoglobin 7.9 g/dL (12.0-15.0); Lymphocytes % 13.6 % (15.3-44.8); MCH 29.9 pg (27.0-35.0); MCHC 33.5 g/dL (32.0-36.0); MCV 89.4 fL (80-100); MPV 7.5 fL (7.6-11.3); Monocytes % 11.5 % (3.3-12.3); Neutrophils % 67.8 % (41.7-73.7); Platelets 363 thou/uL (152-406); RBC Red Blood Cell Count 2.66 M/uL (3.86-4.86)
[2024-08-15 05:57] LABS: Anion Gap 6.1 mEq/L (5.0-15.0); Magnesium 1.9 mg/dL (1.6-2.4); Phosphorus 2.3 mg/dL (2.5-4.9); Potassium 3.1 mEq/L (3.5-5.1); Prealbumin 9.2 mg/dL (20-40)
--- NOTE | 2024-08-15 07:19 | P.PN ---
Date of Service: 08/15/24 Subjective: feels ~same as yesterday no issues overnight afebrile ROS: 10 point ROS as noted above, otherwise negative Physical Exam: GEN: Alert, NAD CV: Regular rate and rhythm, no edema Pulm: Nonlabored respirations on room air, clear bilaterally ABD: soft, mild-moderate tenderness - more on left, non-distended Neuro: Normal speech, normal affect Problem List: Intra-abdominal fluid collection due to anastomotic leak, s/p IR drainage (08/09) Recurrent small bowel obstruction secondary to large complex ventral hernia; s/p small bowel resection (07/22) Status post ventral hernia repair. Extensive adhesiolysis Uncontrolled pain Anemia Infrarenal abdominal aortic aneurysm (4.1 x 3.7) - stable; incidental finding Atrial fibrillation on chronic anticoagulation History of pulmonary embolism anticoagulation Hypertension Severe protein calorie malnutrition Hypomagnesemia hypophosphatemia Intra-abdominal fluid collection due to anastomotic leak, s/p IR drainage (08/09) Recurrent small bowel obstruction secondary to large complex ventral hernia; s/p small bowel resection (07/22) s/p ventral hernia repair. Extensive adhesiolysis 08/09: s/p IR drainage of intra-abdominal fluid collection (only 3-5 ml fecal contaminated fluid drained during initial IR placement) ~300 mL dark-colored malodorous fluid suctioned from the intra-abdominal drain on 08/11. ~About 190 mL suctioned out 08/12, 120 suctioned on 08/13. Repeat CT abd/pelvic (08/14): confirmed anastomotic leakage along left flank small bowel at level of anastomosis also noted Stable Infrarenal abdominal aortic aneurysm, moderate left pleural effusion, trace right pleural effusion Intra-abdominal fluid cx (08/09): E. coli and Enterococcus Faecium continue IV merrem (08/09-); vanc added 08/15 continue TPN via PICC while NPO Dr. Faust, general surgeon is following Plan to repeat CT today to confirm if leakage is not worsening Dr. Faust considering surgery Monitor and optimize electrolytes. pain control PT consult Uncontrolled pain Patient with uncontrolled pain, family is concerned about extended periods between IV and Dilaudid administration causing uncontrolled pain. Nursing staff explained patient was observed to be sleeping during those intervals at night. Patient appears to be in no distress IV hydromorphone pushes changed to ABORIGINAL HOME SCHOOL LIAISON OFFICER for patient controlled analgesia. continue fentanyl patch Titrate ABORIGINAL HOME SCHOOL LIAISON OFFICER for pain control. Anemia History of acute blood loss anemia. s/p 2 recent blood transfusions (07/23, 07/24) hgb 9.4 -> 7.9 (08/15) Continue to monitor CBC. no overt signs of bleedijng Atrial fibrillation on chronic anticoagulation History of pulmonary embolism anticoagulation Hypertension confirm home meds, restart as appropriate / once able to tolerate PO Severe protein calorie malnutrition Hypomagnesemia hypophosphatemia continue to monitor and replace electrolytes as needed continue TPN (08/11-) VTE: SCD Code: Full downgrade from ICU Time Spent Managing Pts Care (In Minutes): 41
[2024-08-15] MEDS: NA CHLORIDE 0.9% 1,000 ML IV SCH (07:20)
[2024-08-15] MEDS: Meropenem 1,000 MG in NA CHLORIDE 0.9% 100 ML IV SCH ×2 (08:36→16:13)
[2024-08-15] MEDS: KCL 20 MEQ/100 mL IVPB 20 MEQ/100 ML BAG IV SCH (08:36)
[2024-08-15] MEDS: POTASSIUM PHOS IN 0.9 % NACL 15 MMOL/250 ML BAG IV SCH (08:36)
[2024-08-15] MEDS: HYDROMORPHONE HCL 1 MG/ML INJ IV PRN (08:58)
[2024-08-15] MEDS: VANCOMYCIN 1.5 GM in NA CHLORIDE 0.9% 500 ML IVPB SCH (09:43)
--- NOTE | 2024-08-15 09:45 | RAD REPORT ---
EXAMINATION: CT ABDOMEN AND PELVIS WITHOUT CONTRAST CLINICAL INDICATION: Anastomotic leak TECHNIQUE: CT abdomen and pelvis was performed, without IV contrast, as per department protocol. Axia l, sagittal and coronal reconstructions were obtained. One or more of the following dose reduction techniques were used: Automated exposure control, adjustment of the mA and kV according to the patien t size, and iterative reconstruction. Unless otherwise specified, incidental findings do not require dedicated imaging follow-up. COMPARISON: 08/14/2024 FINDINGS: The lack of intravenous contrast limits the sensitivity of this exam for evaluation of solid visceral organs, vascular structures, and retroperitoneum. LOWER CHEST: Trace right pleural effusion fluid. Small left pleural effusion is seen. Moderate hiatal hernia. LIVER:Small benign cyst anterior right lobe of the liver. No worrisome liver lesion or biliary dilata tion. Cholelithiasis. SPLEEN: Normal size. No focal lesion. PANCREAS: No mass, ductal dilation, or alma-pancreatic fluid. ADRENALS: Normal; no mass. KIDNEYS AND URETERS: Punctate calculus posterior mid pole right kidney. No stone or hydronephrosis ot herwise detected. URINARY BLADDER: Normal contour. GASTROINTESTINAL TRACT: A pigtail drain is in place localizing within a air collection in the inferio r abdomen. No significant contrast or fluid is seen within this collection. Adjacent sigmoid colon demonstrates several diverticula. APPENDIX: Appendix surgically absent. LYMPH NODES: No lymphadenopathy. MUSCULOSKELETAL: Lumbar degenerative changes. ADDITIONAL FINDINGS: Postsurgical hernia mesh noted along the midline. Focal fluid collection with th ickened wall is noted measuring 5 cm deep to the skin taylor involving the right sided inferior rectus fascia appears unchanged. Infrarenal abdominal aortic aneurysm is stable. IMPRESSION: Left-sided drainage catheter is in place. The majority of the previously noted collection in this reg ion has been drained. Cholelithiasis. Additional findings as detailed above without significant change since comparison study.
[2024-08-15] MEDS ORDERED: D5.45NS W/KCL 20MEQ 20 MEQ/1,000 ML BAG IV SCH (15:00)
--- NOTE | 2024-08-15 16:16 | PN ---
Subjective: Patient lying in bed. Denies any headache, nausea, vomiting, chest pain, abdominal pain , constipation, diarrhea. Got transferred to ICU for CO2 retention, but the patient has no complaint s at this time. Vital signs are stable. Objective: Vital Signs: Reviewed. Lungs: Basal crackles. Heart: S1, S2. Regular. Abdomen: Soft. Bowel sounds present. Abdominal incision and FISH drain noted. Extremities: No edema. Laboratory Data: Shows WBC 8.3, hemoglobin 7.9, platelets are 363. Chemistry shows BUN of 14, creat inine 0.4. Micro data shows body fluid cultures E coli and Enterococcus faecium. Because of allergies to penicillin, patient is on vancomycin and meropenem currently, total of 14 day s. Assessment And Plan: Intraabdominal fluid collection, status post IR drainage. CT scan done today r eports that the patient has drainage catheter in place, and majority of previously noted collection i n the region has been drained. Cholelithiasis, and no other changes. Anemia secondary to chronic di sease. Status post hernia repair. Status post small bowel resection secondary to small bowel obstru ction. Continue current antibiotic and supportive care. We will follow the patient as needed. NF/MODL Voice ID: [id number] Report ID: [id number]
[2024-08-16 05:23] LABS: Absolute Eosinophils 0.6 K/uL (0-0.5); Absolute Lymphocytes (CBC) 0.9 K/uL (0.7-4.9); Absolute Monocytes 0.7 K/uL (0.1-1.3); Absolute Neutrophil 5.6 K/uL (1.8-8.0); Basophils % 0.4 % (0-1.3); Eosinophils % 8.2 % (0-4.4); Hematocrit 25.1 % (36.0-45.0); Hemoglobin 8.3 g/dL (12.0-15.0); Lymphocytes % 11.2 % (15.3-44.8); MCH 29.7 pg (27.0-35.0); MCHC 33.1 g/dL (32.0-36.0); MCV 89.7 fL (80-100); MPV 7.7 fL (7.6-11.3); Monocytes % 9.1 % (3.3-12.3); Neutrophils % 71.1 % (41.7-73.7); Platelets 372 thou/uL (152-406); Red Cell Distribution Width 15.2 % (12.1-15.2)
[2024-08-16 05:39] LABS: Anion Gap 7.1 mEq/L (5.0-15.0); Magnesium 1.9 mg/dL (1.6-2.4); Phosphorus 2.2 mg/dL (2.5-4.9); Potassium 3.1 mEq/L (3.5-5.1); Prealbumin 10.9 mg/dL (20-40)
--- NOTE | 2024-08-16 08:53 | P.PN ---
Date of Service: 08/16/24 Subjective: pain seems to be improving nothing worsening tolerating sips ROS: 10 point ROS as noted above, otherwise negative Physical Exam: GEN: Alert, NAD CV: Regular rate and rhythm, no edema Pulm: Nonlabored respirations on room air, clear bilaterally ABD: soft, mild-moderate tenderness - mostly left sided, non-distended Neuro: Normal speech, normal affect Problem List: Intra-abdominal fluid collection due to anastomotic leak, s/p IR drainage (08/09) Recurrent small bowel obstruction secondary to large complex ventral hernia; s/p small bowel resection (07/22) s/p ventral hernia repair. Extensive adhesiolysis Uncontrolled pain Anemia Infrarenal abdominal aortic aneurysm (4.1 x 3.7) - stable; incidental finding Atrial fibrillation on chronic anticoagulation History of pulmonary embolism anticoagulation Hypertension Severe protein calorie malnutrition Hypomagnesemia hypophosphatemia Intra-abdominal fluid collection due to anastomotic leak, s/p IR drainage (08/09) Recurrent small bowel obstruction secondary to large complex ventral hernia; s/p small bowel resection (07/22) s/p ventral hernia repair. Extensive adhesiolysis 08/09: s/p IR drainage of intra-abdominal fluid collection (only 3-5 ml fecal contaminated fluid drained during initial IR placement) ~300 mL dark-colored malodorous fluid suctioned from the intra-abdominal drain on 08/11. ~About 190 mL suctioned out 08/12, 120 suctioned on 08/13. Repeat CT abd/pelvic (08/14): confirmed anastomotic leakage along left flank small bowel at level of anastomosis moderate left pleural effusion, trace right pleural effusion repeat CT (08/15): Majority of previously noted collection has been drained. Focal fluid collection within thickened wall 5 cm deep to the skin taylor involving right sided inferior rectus fascia unchanged Intra-abdominal fluid cx (08/09): E. coli and Enterococcus Faecium continue IV merrem (08/09-) and vanc (08/15-) continue TPN via PICC - anticipate will need for extended period Dr. Faust, general surgeon is following Monitor and optimize electrolytes. pain control PT consult Uncontrolled pain Patient with uncontrolled pain earlier in week, family was concerned about extended periods between IV and Dilaudid administration causing uncontrolled pain. Nursing staff explained patient was observed to be sleeping during those intervals at night. Patient appears to be in no distress dc MANAGER INCOME TAX 08/16, start liquid lortab, continue IV dilaudid prn for breakthrough continue fentanyl patch Anemia History of acute blood loss anemia. s/p 2 recent blood transfusions (07/23, 07/24) monitor CBC. no overt signs of bleeding. Hgb stable Atrial fibrillation on chronic anticoagulation History of pulmonary embolism, on chronic anticoagulation Hypertension confirm home meds, restart as appropriate / once able to tolerate PO eliquis had been held due to IR drain / possible surgery will discuss with general surgery regarding restarting Severe protein calorie malnutrition Hypomagnesemia hypophosphatemia continue to monitor and replace electrolytes as needed continue TPN (08/11-) VTE: SCD Code: Full Dispo: discussed with patient at length today, agreeable to LTACH Time Spent Managing Pts Care (In Minutes): 41
--- NOTE | 2024-08-16 12:57 | P.PN ---
Subjective Date of Service: 08/09/24 Chief Complaint: Abdominal pain Subjective: Improving (Patient has less pain) Physical Examination - Vital Signs Temperature: 98 F Blood Pressure: 153/72 Pulse: 83 Respirations: 15 Pulse Ox (%): 95 - Physical Exam General: Alert, In no apparent distress, Cooperative HEENT: Normocephalic, Mucous membr. moist/pink Respiratory: Clear to auscultation bilaterally Cardiovascular: Regular rate/rhythm Gastrointestinal: Other (Soft mild tenderness to left lower quadrant palpation, only noted on deep palpation, abdominal exam is otherwise benign FISH drain cont inues to drain enteric contents into Hemovac system midline wound is clean and dry without any issues taylor remain in place.) Integumentary: No rashes, No breakdown, No significant lesion Neurological: Normal speech - Studies Laboratory Data (last 24 hrs) 08/16/24 08/16/24 08/16/24 05:00 05:00 05:00 WBC 7.80 Hgb 8.3 L Hct 25.1 L Plt Count 372 Sodium 136 Potassium 3.1 L D BUN 14 Creatinine 0.42 L Glucose 132 H Phosphorus 2.2 L Magnesium 1.9 Triglycerides 251 H 08/15/24 16:46 WBC Hgb Hct Plt Count Sodium Potassium 3.7 D BUN Creatinine Glucose Phosphorus Magnesium Triglycerides Assessment And Plan - Current Problems (Diagnosis) (1) Perforated viscus Onset Date: 09/02/15 Current Visit: No Status: Acute Plan: Patient is an 84-year-old woman who presented to the hospital within the last 3 to 4 weeks with a bowel obstruction. She failed nonoperative management and ultimately was taken to the operating room for an exploratory laparotomy where an extensive adhesiolysis was performed and a resection of small bowel due to s ignificant scar tissue between a previously placed mesh in her small bowel. She had a small bowel [id number] anastomosis which did well initially for several weeks she was eating having bowel movements and feeling well generally with improved pain ultimately she was sent to rehab on the fifth floor at which point she states she had a vigorous rehabilitation day and developed pain shortly there on the next day or 2 after. She was transferred back to the floor where a CT scan showed a large leak at the previous anastomosis. She ultimately had a drain placed by interventional radiology which drained a significant amount of feculent material consistent with enteric contents. It has been draining quite well and her symptoms have significantly improved. -Continue pain management with current regimen will transition to p.o. Lortab elixir and see if it gets better control to transition away from IV pain medication as much as possible. -Patient remains hemodynamically stable without any evidence of SIRS, no hypotension no tachycardia. -Respiratory clear to auscultation incentive spirometry is approximately 750 cc, recommend continued use of incentive spirometry and sitting up and is much as possible with coughing and deep breathing exercises. -GI: Patient continues to have intermittent bowel function, CT scans have shown contained leak without any evidence of free air. The drain appears to be forming a controlled fistula. -FEN: TPN, electrolyte replacement protocol, will attempt p.o. liquids and monitor drain output to see if it could, to increase occurs after intra-abdomina l collection is improved significantly. -ID: Continue antibiotic coverage due to intra-abdominal contamination. Likely will need long-term antibiotics -Prophylaxis: Okay to give Lovenox SCDs, ambulate with assist with physical therapy, recommend slow progression of physical therapy -Disposition: Given the patient's current situation she shows no signs of sepsis or worsening intra-abdominal pathology, she has a contained leak at this point which is being controlled with a interventional radiologist placed drain, will consider surgical intervention in the future, would likely wait approximately 3 months before consideration of return to the operating room however if she seals spontaneously we will pull the drain at that time after small bowel is evaluated and ensure is no further leak exist and intra-abdominal collections have all resolved, I recommend continued imaging intermittently to manage the collections and ensure no undrained collections exist. LTAC recommended. I recommend long- term TPN IV fluid antibiotics, p.o. with clear liquid diet and possible advancement based on drain output, continue drain and intermittent monitoring with imaging as described. Continue physical therapy as well. If patient shows signs of sepsis or worsening leukocytosis, nonreassuring factors consistent with infection recommend reimaging reworkup possible drain of additional intra- abdominal collections and/or surgical intervention. -I have explained the risk benefits alternatives the above-stated plan to the patient and her they have agreed with the plan as stated. Patient does not want additional surgical invention unless she has no other option.
--- NOTE | 2024-08-16 12:59 | P.PN ---
Subjective Date of Service: 08/16/24 Chief Complaint: Abdominal pain Subjective: Improving (Patient has minimal pain, has been working with physical therapy today. No issues with p.o. liquids) Physical Examination - Vital Signs Temperature: 98 F Blood Pressure: 153/72 Pulse: 83 Respirations: 15 Pulse Ox (%): 95 - Physical Exam General: Alert, In no apparent distress, Cooperative HEENT: Mucous membr. moist/pink Neck: Supple Respiratory: Clear to auscultation bilaterally, Normal air movement Cardiovascular: Regular rate/rhythm Gastrointestinal: Other (Soft, minimal left lower quadrant pain to only deep palpation, no rebound no guarding no focal peritonitis, left lower quadrant interventional radiologist placed drain continues to drain enteric like material. Angel Luis remain in place no signs of infection out skin level) Integumentary: No rashes, No breakdown Neurological: Normal speech - Studies Laboratory Data (last 24 hrs) 08/16/24 08/16/24 08/16/24 05:00 05:00 05:00 WBC 7.80 Hgb 8.3 L Hct 25.1 L Plt Count 372 Sodium 136 Potassium 3.1 L D BUN 14 Creatinine 0.42 L Glucose 132 H Phosphorus 2.2 L Magnesium 1.9 Triglycerides 251 H 08/15/24 16:46 WBC Hgb Hct Plt Count Sodium Potassium 3.7 D BUN Creatinine Glucose Phosphorus Magnesium Triglycerides Assessment And Plan - Current Problems (Diagnosis) (1) Perforated viscus Onset Date: 09/02/15 Current Visit: No Status: Acute Plan: Patient is an 84-year-old woman who presented to the hospital within the last 3 to 4 weeks with a bowel obstruction. She failed nonoperative management and ultimately was taken to the operating room for an exploratory laparotomy where an extensive adhesiolysis was performed and a resection of small bowel due to significant scar tissue between a previously placed mesh in her small bowel. She had a small bowel [id number] anastomosis which did well initially for several weeks she was eating having bowel movements and feeling well generally with improved pain ultimately she was sent to rehab on the fifth floor at which point she states she had a vigorous rehabilitation day and developed pain shortly there on the next day or 2 after. She was transferred back to the floor where a CT scan showed a large leak at the previous anastomosis. She ultimately had a drain placed by interventional radiology which drained a significant amount of feculent material consistent with enteric contents. It has been draining quite well and her symptoms have significantly improved. -Continue pain management with current regimen will transition to p.o. Lortab elixir and see if it gets better control to transition away from IV pain medication as much as possible. -Patient remains hemodynamically stable without any evidence of SIRS, no hypotension no tachycardia. -Respiratory clear to auscultation incentive spirometry is approximately 750 cc, recommend continued use of incentive spirometry and sitting up and is much as possible with coughing and deep breathing exercises. -GI: Patient continues to have intermittent bowel function, CT scans have shown contained leak without any evidence of free air. The drain appears to be forming a controlled fistula. -FEN: TPN, electrolyte replacement protocol, will attempt p.o. liquids and monitor drain output to see if it could, to increase occurs after intra- abdominal collection is improved significantly. -ID: Continue antibiotic coverage due to intra-abdominal contamination. Likely will need long-term antibiotics -Prophylaxis: Okay to give Lovenox SCDs, ambulate with assist with physical therapy, recommend slow progression of physical therapy -Disposition: Given the patient's current situation she shows no signs of sepsis or worsening intra-abdominal pathology, she has a contained leak at this point which is being controlled with a interventional radiologist placed drain, will consider surgical intervention in the future, would likely wait approximately 3 months before consideration of return to the operating room however if she seals spontaneously we will pull the drain at that time after small bowel is evaluated and ensure is no further leak exist and intra-abdominal collections have all resolved, I recommend continued imaging intermittently to manage the collections and ensure no undrained collections exist. LTAC recommended. I recommend long- term TPN IV fluid antibiotics, p.o. with clear liquid diet and possible advancement based on drain output, continue drain and intermittent monitoring with imaging as described. Continue physical therapy as well. If patient shows signs of sepsis or worsening leukocytosis, nonreassuring factors consistent with infection recommend reimaging reworkup possible drain of additional intra- abdominal collections and/or surgical intervention. -I have explained the risk benefits alternatives the above-stated plan to the patient and her they have agreed with the plan as stated. Patient does not want additional surgical invention unless she has no other option.
[2024-08-16] MEDS: ACETAMINOPHEN 325 MG TABLET PO PRN (13:05)
[2024-08-16] MEDS ORDERED: AA 4.25 %/D5W/ELECTROLYTES 2,000 ML, Lipids 20% 250 ML with MULTIVITAMINS INJ 10 ML IV SCH (17:00)
[2024-08-16] MEDS: AMINO ACIDS 4.25 %/DEXTROSE 5% 2,000 ML, Lipids 20% 250 ML with MULTIVITAMINS INJ 10 ML IV SCH (17:07)
[2024-08-16] MEDS: HYDROCOD 2.5mg-ACETAMIN 108mg/5mL Soln PO PRN (18:00)
--- NOTE | 2024-08-16 19:48 | PN ---
Subjective: Patient lying in bed. Denies any headache, nausea, vomiting. Continued to have abdomin al discomfort. Currently, on TPN, Merrem, and vancomycin. Objective: Vital Signs: Temperature 98, pulse 83, respirations 15, blood pressure 153/72. Lungs: Basal crackles. Heart: S1, S2. Regular. Abdomen: Soft. Bowel sounds present. Tenderness in bilateral upper and lower quadrants noted. Laboratory Data: Shows WBC 7.8, hemoglobin 8.3, platelets are 376. Chemistry shows BUN of 14, creat inine 0.4. Assessment And Plan: Intraabdominal fluid collection due to anastomotic leak, status post IR drainag e on 08/09. Cultures grew Enterococcus faecium and Escherichia coli. Recurrent small bowel obstruct ion secondary to large complex ventral hernia, status post small bowel resection 07/22, status post v entral hernia repair with extensive adhesiolysis, anemia of chronic disease. We will continue to mon itor. Continue current antibiotic and TPN. We will follow the patient as needed. NF/MODL Voice ID: [id number] Report ID: [id number]
[2024-08-17] MEDS: ONDANSETRON 4 MG/2 ML VIAL IV PRN (04:01)
[2024-08-17 05:33] LABS: Absolute Eosinophils 0.6 K/uL (0-0.5); Absolute Lymphocytes (CBC) 0.9 K/uL (0.7-4.9); Absolute Monocytes 0.6 K/uL (0.1-1.3); Basophils % 0.6 % (0-1.3); Eosinophils % 7.3 % (0-4.4); Hematocrit 24.8 % (36.0-45.0); Hemoglobin 8.3 g/dL (12.0-15.0); Lymphocytes % 10.6 % (15.3-44.8); MCH 29.7 pg (27.0-35.0); MCHC 33.7 g/dL (32.0-36.0); MCV 88.1 fL (80-100); MPV 7.3 fL (7.6-11.3); Monocytes % 7.5 % (3.3-12.3); Platelets 341 thou/uL (152-406); RBC Red Blood Cell Count 2.81 M/uL (3.86-4.86); Red Cell Distribution Width 14.9 % (12.1-15.2)
[2024-08-17 06:08] LABS: Anion Gap 7.1 mEq/L (5.0-15.0); Phosphorus 2.4 mg/dL (2.5-4.9); Potassium 3.1 mEq/L (3.5-5.1); Prealbumin 12.5 mg/dL (20-40)
[2024-08-17] MEDS: POTASSIUM CL SA 10 MEQ TAB PO ONE (07:41)
[2024-08-17] MEDS: POTASS/SODIUM PHOSPHATE 1 PKT POWD.PACK PO SCH (08:25)
[2024-08-17] MEDS: POTASSIUM 25 MEQ EFFERV TAB PO ONE (09:27)
--- NOTE | 2024-08-17 11:10 | P.PN ---
Date of Service: 08/17/24 Subjective: patient considering LTAC. Wanting to discuss with family first Heart rate went up to 140s briefly today after getting up with PT. no obvious bleeding noted afebrile ROS: 10 point ROS as noted above, otherwise negative Physical Exam: GEN: Alert, NAD CV: Regular rate and rhythm, no edema Pulm: Nonlabored respirations on room air, clear bilaterally ABD: soft, mild-moderate tenderness - left sided, non-distended Neuro: Normal speech, normal affect Problem List: Intra-abdominal fluid collection due to anastomotic leak, s/p IR drainage (08/09) Recurrent small bowel obstruction secondary to large complex ventral hernia; s/p small bowel resection (07/22) s/p ventral hernia repair. Extensive adhesiolysis Uncontrolled pain Anemia Infrarenal abdominal aortic aneurysm (4.1 x 3.7) - stable; incidental finding Atrial fibrillation on chronic anticoagulation History of pulmonary embolism anticoagulation Hypertension Severe protein calorie malnutrition Hypomagnesemia hypophosphatemia Intra-abdominal fluid collection due to anastomotic leak, s/p IR drainage (08/09) Recurrent small bowel obstruction secondary to large complex ventral hernia; s/p small bowel resection (07/22) s/p ventral hernia repair. Extensive adhesiolysis 08/09: s/p IR drainage of intra-abdominal fluid collection (only 3-5 ml fecal contaminated fluid drained during initial IR placement) ~300 mL dark-colored malodorous fluid suctioned from the intra-abdominal drain on 08/11. ~About 190 mL suctioned out 08/12, 120 suctioned on 08/13. Repeat CT abd/pelvic (08/14): confirmed anastomotic leakage along left flank small bowel at level of anastomosis moderate left pleural effusion, trace right pleural effusion repeat CT (08/15): Majority of previously noted collection has been drained. Focal fluid collection within thickened wall 5 cm deep to the skin taylor involving right sided inferior rectus fascia unchanged Intra-abdominal fluid cx (08/09): E. coli and Enterococcus Faecium continue IV merrem (08/09-) and vanc (08/15-) continue TPN via PICC - will need for several weeks minimum Dr. Faust, general surgeon is following Monitor and optimize electrolytes. pain control continue PT Patient and family considering LTAC. Patient wishes to discuss with family before making decision. Uncontrolled pain Patient with uncontrolled pain earlier in week, family was concerned about extended periods between IV and Dilaudid administration causing uncontrolled pain. Nursing staff explained patient was observed to be sleeping during those intervals at night. 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 s/p 2 recent blood transfusions (07/23, 07/24) monitor CBC. no overt signs of bleeding. Hgb stable Atrial fibrillation on chronic anticoagulation History of pulmonary embolism, on chronic anticoagulation Hypertension confirm home meds, restart as appropriate / once able to tolerate PO eliquis had been held due to IR drain / possible surgery restart anticoagulation Severe protein calorie malnutrition Hypomagnesemia hypophosphatemia continue to monitor and replace electrolytes as needed continue TPN (08/11-) for several weeks minimum VTE: SCD Code: Full Dispo: ?LTAC; patient wanting to discuss further with family before making decision. Time Spent Managing Pts Care (In Minutes): 41
[2024-08-17] MEDS ORDERED: D5 IV SCH (17:00)
[2024-08-17] MEDS ORDERED: [UNRECOGNIZED DRUG - OTHER] IV SCH (17:00)
[2024-08-17] MEDS: DEXTROSE 5% IV SCH (17:56)
[2024-08-17] MEDS: LIPIDS 20% IV SCH (17:56)
[2024-08-17] MEDS: AMINO ACIDS IV SCH (17:56)
[2024-08-17] MEDS: FENTANYL 25 MCG/PATCH TD SCH (17:57)
[2024-08-17] MEDS: METOPROLOL XL 25 MG TAB PO SCH (21:48)
[2024-08-17] MEDS: APIXABAN 5 MG TABLET PO SCH (21:48)
[2024-08-17] MEDS: VANCOMYCIN 1.5 GM in NA CHLORIDE 0.9% 500 ML IVPB SCH (21:48)
[2024-08-18] MEDS: VANCOMYCIN 500 MG/VIAL ONE (02:55)
[2024-08-18] MEDS: NA CHLORIDE 0.9% 100 ML ONE (03:00)
[2024-08-18] MEDS: VANCOMYCIN 250 MG in NA CHLORIDE 0.9% 100 ML IVPB ONE (03:13)
--- NOTE | 2024-08-18 07:44 | P.PN ---
Date of Service: 08/18/24 Subjective: patient and family agreeable to LTAC yesterday. Somewhat hesitant this morning on LTAC decision had taylor removed yesterday by Dr. Faust 250 output from hemovac this morning/overnight felt cold overnight, afebrile afebrile ROS: 10 point ROS as noted above, otherwise negative Physical Exam: GEN: Alert, NAD CV: Regular rate and rhythm, no edema Pulm: Nonlabored respirations on room air, clear bilaterally ABD: soft, mild-moderate tenderness - LUQ/L flank, non-distended Neuro: Normal speech, normal affect drain in place purewick in place Problem List: Intra-abdominal fluid collection due to anastomotic leak, s/p IR drainage (08/09) Recurrent small bowel obstruction secondary to large complex ventral hernia; s/p small bowel resection (07/22) s/p ventral hernia repair. Extensive adhesiolysis Uncontrolled pain Anemia Infrarenal abdominal aortic aneurysm (4.1 x 3.7) - stable; incidental finding Atrial fibrillation on chronic anticoagulation History of pulmonary embolism anticoagulation Hypertension GERD Severe protein calorie malnutrition Hypomagnesemia hypophosphatemia Intra-abdominal fluid collection due to anastomotic leak, s/p IR drainage (08/09) Recurrent small bowel obstruction secondary to large complex ventral hernia; s/p small bowel resection (07/22) s/p ventral hernia repair. Extensive adhesiolysis 08/09: s/p IR drainage of intra-abdominal fluid collection (only 3-5 ml fecal contaminated fluid drained during initial IR placement) CT abd/pelvic (08/14): confirmed anastomotic leakage along left flank small bowel at level of anastomosis. Also noted moderate left pleural effusion, trace right pleural effusion repeat CT (08/15): Majority of previously noted collection has been drained. Focal fluid collection within thickened wall 5 cm deep to the skin taylor involving right sided inferior rectus fascia unchanged Intra-abdominal fluid cx (08/09): E. coli and Enterococcus Faecium continue IV merrem (08/09-) and vanc (08/15-) continue TPN via PICC - will need for several weeks minimum General surgeon is following Dr. Faust felt patient would benefit from LTAC. Patient and family agreeable to LTAC after discussion yesterday Recommends weekly CT abd/pelvis with contrast while at LTAC for continued monitoring to manage the collections and ensure no undrained or worsening collections exist ~250ml output from hemovac last ~24 hours; trending down surgical taylor removed 08/17 continue local wound care Monitor and optimize electrolytes. pain control continue PT Uncontrolled pain Patient with uncontrolled pain earlier in week, family was concerned about extended periods between IV and Dilaudid administration causing uncontrolled pain. Nursing staff explained patient was observed to be sleeping during those intervals at night. 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 s/p 2 recent blood transfusions (07/23, 07/24) monitor CBC. no overt signs of bleeding. Hgb stable Atrial fibrillation on chronic anticoagulation History of pulmonary embolism, on chronic anticoagulation Hypertension eliquis had been held due to IR drain / surgery home eliquis, metoprolol resumed 08/17 GERD resume protonix 08/18 Severe protein calorie malnutrition Hypomagnesemia hypophosphatemia continue to monitor and replace electrolytes as needed continue TPN (08/11-) for several weeks minimum VTE: Home eliquis resumed 08/17 Code: Full Dispo: LTAC; patient/family needing time to discuss / choose facility, expecting will pick one today, and start process monitor at least another 24hrs, if continues with improvement, may be ready to transfer to LTAC once approved Time Spent Managing Pts Care (In Minutes): 41
[2024-08-18 08:55] LABS: Absolute Basophils 0.1 K/uL (0-0.5); Absolute Eosinophils 0.8 K/uL (0-0.5); Absolute Lymphocytes (CBC) 0.9 K/uL (0.7-4.9); Absolute Monocytes 0.8 K/uL (0.1-1.3); Basophils % 0.7 % (0-1.3); Eosinophils % 8.4 % (0-4.4); Hematocrit 25.9 % (36.0-45.0); Hemoglobin 9.1 g/dL (12.0-15.0); Lymphocytes % 9.4 % (15.3-44.8); MCH 30.6 pg (27.0-35.0); MCV 87.4 fL (80-100); Monocytes % 8.3 % (3.3-12.3); Neutrophils % 73.2 % (41.7-73.7); Nucleated Red Blood Cells % 0.1 % (0-0); Platelets 429 thou/uL (152-406); RBC Red Blood Cell Count 2.97 M/uL (3.86-4.86); Red Cell Distribution Width 15.4 % (12.1-15.2)
[2024-08-18] MEDS: PANTOPRAZOLE 40MG TABLET PO SCH (09:00)
[2024-08-18 09:12] LABS: Albumin 2.1 g/dL (3.4-5.0); Albumin/Globulin Ratio 0.4 (1.1-1.8); Anion Gap 9.6 mEq/L (5.0-15.0); Bilirubin Total 0.3 mg/dL (0.2-1.0); Globulin 4.9 g/dL (2.3-3.5); Potassium 3.6 mEq/L (3.5-5.1)
[2024-08-18] MEDS: POTASSIUM 25 MEQ EFFERV TAB PO ONE ×2 (12:40→20:35)
--- NOTE | 2024-08-18 16:04 | PN ---
Subjective: Patient lying in bed. No new acute event. Chart reviewed. Objective: Vital Signs: Reviewed. Lungs: Basal crackles. Heart: S1, S2. Regular. Abdomen: Tender. Bowel sounds present. Extremities: Trace edema. Laboratory Data: Shows WBC 9.5, hemoglobin 9.1, platelets 429. Chemistry shows BUN of 22, creatinin e 0.5. Micro data: No new micro data available. Abdominal CT done on 08/15 reviewed. Assessment And Plan: Patient to continue antibiotic and TPN for at least 4 weeks before re-evaluatio n. She might need further antibiotics. Monitor signs for any pressure wounds, status post intraabdo kannan fluid collection due to anastomotic leak, status post IR drainage. Recurrent small bowel obstr uction secondary to large ventral hernia, status post small bowel resection, status post ventral nery ia repair. Anemia of chronic disease. Continue supportive care and IV antibiotic. We will follow t he patient as needed. NF/MODL Voice ID: [id number] Report ID: [id number]
[2024-08-18] MEDS: VANCOMYCIN 1.75 GM in NA CHLORIDE 0.9% 500 ML IVPB SCH (20:30)
[2024-08-18] MEDS: LORazepam 2 MG/ML VIAL IV PRN (21:45)
[2024-08-19 06:01] LABS: Absolute Basophils 0.1 K/uL (0-0.5); Absolute Eosinophils 0.7 K/uL (0-0.5); Absolute Lymphocytes (CBC) 1.1 K/uL (0.7-4.9); Absolute Monocytes 0.8 K/uL (0.1-1.3); Basophils % 0.7 % (0-1.3); Eosinophils % 7.6 % (0-4.4); Hematocrit 24.8 % (36.0-45.0); Hemoglobin 8.7 g/dL (12.0-15.0); Lymphocytes % 13.1 % (15.3-44.8); MCH 30.5 pg (27.0-35.0); MCV 87.2 fL (80-100); MPV 7.4 fL (7.6-11.3); Monocytes % 8.8 % (3.3-12.3); Neutrophils % 69.8 % (41.7-73.7); Nucleated Red Blood Cells % 0.1 % (0-0); Platelets 388 thou/uL (152-406); RBC Red Blood Cell Count 2.85 M/uL (3.86-4.86); Red Cell Distribution Width 14.9 % (12.1-15.2)
[2024-08-19 06:25] LABS: Anion Gap 7.7 mEq/L (5.0-15.0); Potassium 3.7 mEq/L (3.5-5.1)
[2024-08-19] MEDS: KCL 20 MEQ/100 mL IVPB 20 MEQ/100 ML BAG IV SCH ×2 (09:00→12:35)
--- NOTE | 2024-08-19 09:08 | P.PN ---
Subjective Date of Service: 08/19/24 (Hospitalist) Chief Complaint: Abdominal pain No significant change still has some abdominal discomfort feeling a little better Review of Systems General: Weakness Gastrointestinal: Abdominal Pain Physical Examination - Vital Signs Temperature: 98.3 F Blood Pressure: 140/78 Pulse: 84 Respirations: 12 Pulse Ox (%): 96 - Physical Exam General: Alert, In no apparent distress, Oriented x3 Respiratory: Clear to auscultation bilaterally Cardiovascular: No edema, Regular rate/rhythm - Studies Laboratory Data (last 24 hrs) 08/19/24 08/19/24 08/18/24 05:40 05:40 16:34 WBC 8.60 Hgb 8.7 L Hct 24.8 L Plt Count 388 Sodium 137 Potassium 3.7 3.7 BUN 24 H Creatinine 0.57 Glucose 110 H Magnesium 2.0 Total Bilirubin AST ALT Alkaline Phosphatase 08/18/24 08/18/24 08:45 08:45 WBC 9.50 Hgb 9.1 L D Hct 25.9 L Plt Count 429 H Sodium 135 L D Potassium 3.6 BUN 22 H Creatinine 0.55 Glucose 119 H Magnesium 2.0 Total Bilirubin 0.3 AST 28 ALT 30 Alkaline Phosphatase 99 Assessment And Plan - Current Problems (Diagnosis) (1) Bowel obstruction Current Visit: No Status: Acute Plan: Patient has a history of bowel obstruction s/p FISH drain with general surgery continue with TPN and relief antibiotics status post IR drainage due to anastomotic leak patient CT scan shows complete drainage of the fluid administration labs unremarkable waiting an LTAC E. coli and Enterococcus VCM was isolated currently on Vanco and meropenem Qualifiers: Intestinal obstruction type: unspecified
[2024-08-19 09:46] VITALS: O2SAT 96
--- NOTE | 2024-08-19 16:04 | P.DS ---
Admission Date: 08/08/24 Discharge Date: 08/19/24 Disposition: SNF ACUTE CARE FACILITY Discharge Condition: GOOD Reason for Admission: Abdominal pain - Problems (1) Bowel obstruction Current Visit: No Status: Acute Qualifiers: Intestinal obstruction type: unspecified Brief History of Present Illness: Patient is 84 years of age admitted with abdominal pain status post small bowel resection anastomotic leak Hospital Course: Patient is an 84-year-old woman who presented to the hospital within the last 3 to 4 weeks with a bowel obstruction. She failed nonoperative management and ultimately was taken to the operating room for an exploratory laparotomy where an extensive adhesiolysis was performed and a resection of small bowel due to significant scar tissue between a previously placed mesh in her small bowel. She had a small bowel [id number] anastomosis which did well initially for several weeks she was eating having bowel movements and feeling well generally with improved pain ultimately she was sent to rehab on the fifth floor at which point she states she had a vigorous rehabilitation day and developed pain shortly there on the next day or 2 after. She was transferred back to the floor where a CT scan showed a large leak at the previous anastomosis. She ultimately had a drain placed by interventional radiology which drained a significant amount of feculent material consistent with enteric contents. Patient's stay remains uncomplicated continue with TPN cultures positive for E. coli and Enterococcus is on meropenem and vancomycin The time of discharge alert oriented responsive cooperative vital signs all stable labs all reviewed informed stable to be transferred to an LTAC mildly anemic Vital Signs/Physical Exam: Temp Pulse Resp BP Pulse Ox 97.0 F 81 16 142/82 H 96 08/19/24 12:00 08/19/24 14:48 08/19/24 15:02 08/19/24 14:48 08/19/24 15:02 Laboratory Data at Discharge: WBC 8.60 thou/uL (4.3-10.9) 08/19/24 05:40 Hgb 8.7 g/dL (12.0-15.0) L 08/19/24 05:40 Hct 24.8 % (36.0-45.0) L 08/19/24 05:40 Plt Count 388 thou/uL (152-406) 08/19/24 05:40 PT 19.1 SECONDS (9.4-12.5) H 08/09/24 08:23 INR 1.73 08/09/24 08:23 APTT 30.5 SECONDS (24.3-36.9) 08/09/24 08:23 Sodium 137 mEq/L (136-145) 08/19/24 05:40 Potassium 3.7 mEq/L (3.5-5.1) 08/19/24 05:40 BUN 24 mg/dL (7-18) H 08/19/24 05:40 Creatinine 0.57 mg/dL (0.55-1.02) 08/19/24 05:40 Glucose 110 mg/dL (74-106) H 08/19/24 05:40 Phosphorus 2.4 mg/dL (2.5-4.9) L 08/17/24 05:20 Magnesium 2.0 mg/dL (1.6-2.4) 08/19/24 05:40 Total Bilirubin 0.3 mg/dL (0.2-1.0) 08/18/24 08:45 AST 28 U/L (15-37) 08/18/24 08:45 ALT 30 U/L (13-56) 08/18/24 08:45 Alkaline Phosphatase 99 U/L (45-117) 08/18/24 08:45 Triglycerides 227 mg/dL (<150) H 08/17/24 05:20 Home Medications: Acetaminophen [Tylenol Extra Strength] 500 mg PO Q4HP PRN 08/08/24 Amlodipine [Norvasc*] 5 mg PO BID 08/08/24 Apixaban [Eliquis] 5 mg PO BID 08/08/24 Baclofen 5 mg PO BID 08/08/24 Cranberry Fruit Extract 200 mg PO BID 08/08/24 Docusate [Colace Cap*] 100 mg PO BID 08/08/24 Ensure Enlive 237 ml PO BID 08/08/24 Ferrous Sulfate [Feosol] 325 mg PO DAILY 08/08/24 Hydrocodone 5/APAP 325 [[place] 5/325*] 1 tab PO Q4HP PRN 08/08/24 Melatonin 3 mg PO BEDTIME PRN PRN 08/08/24 Metoprolol Succinate [Toprol Xl*] 25 mg PO TID 08/08/24 Ondansetron [Zofran (Odt)*] 4 mg PO Q4HP PRN 08/08/24 Pantoprazole Sodium [Protonix] 40 mg PO DAILY 08/08/24 Trazodone [Desyrel*] 50 mg PO BEDTIME PRN PRN 08/08/24 cloNIDine HCL [Clonidine HCl] 0.1 mg PO Q4HP PRN 08/08/24 traMADol HCL [Ultram*] 50 mg PO BEDTIME PRN 08/08/24 Physician Discharge Instructions: Physician discharge instructions: Discussed with Dr. Kamara will need CT scan of the abdomen with contrast once a week through the FISH drain patient to flushing of the FISH drain 20 mL every 12 hours Medications: Follow up: Dr. Faust recommends weekly CT abd/pelvis with contrast while at LTAC for continued monitoring to manage the collections and ensure no undrained or worsening collections exist. continue TPN and NPO with small ice chips/sips allowed with meds, and for comfort as long as drain output doesn't increase. Followup: Lj Ridley DO, DO [Primary Care Provider] -
[2024-08-19 17:07] VITALS: BP 150/69; TEMP 97.3
[2024-08-20] MEDS ORDERED: PANTOPRAZOLE 40MG TABLET PO SCH (07:30)
== END 2024-08-19 19:27 | DRG 393 ==
LOC: 4TH 02:00 → 3RD-ICU 08-14 21:22 → 2ND 08-15 22:58
PROVIDERS: ADMIT Family Medicine; ATTEND Internal Medicine Sleep Medicine
PROC: 02HV33Z Insertion of Infusion Device into Superior Vena Cava, Percutaneous Approach (ICD-10-PCS; principal; 2024-08-08)
PROC: 3E0436Z Introduction of Nutritional Substance into Central Vein, Percutaneous Approach (ICD-10-PCS; 2024-08-08)
PROC: 009U3ZX Drainage of Spinal Canal, Percutaneous Approach, Diagnostic (ICD-10-PCS; 2024-08-09)
DX: K91.89 Other postprocedural complications and disorders of digestive system (principal); E43 Unspecified severe protein-calorie malnutrition; I48.91 Unspecified atrial fibrillation; E86.0 Dehydration; I10 Essential (primary) hypertension; E83.42 Hypomagnesemia; D63.8 Anemia in other chronic diseases classified elsewhere; K80.20 Calculus of gallbladder without cholecystitis without obstruction; K21.9 Gastro-esophageal reflux disease without esophagitis; I71.43 Infrarenal abdominal aortic aneurysm, without rupture; E83.39 Other disorders of phosphorus metabolism; B95.2 Enterococcus as the cause of diseases classified elsewhere; B96.20 Unspecified Escherichia coli [E. coli] as the cause of diseases classified elsewhere; Z93.3 Colostomy status; Z88.2 Allergy status to sulfonamides; Z88.7 Allergy status to serum and vaccine; Z98.51 Tubal ligation status; Z68.29 Body mass index [BMI] 29.0-29.9, adult; Z79.01 Long term (current) use of anticoagulants; Z86.711 Personal history of pulmonary embolism; Z87.891 Personal history of nicotine dependence; Z85.038 Personal history of other malignant neoplasm of large intestine; Y83.8 Other surgical procedures as the cause of abnormal reaction of the patient, or of later complication, without mention of misadventure at the time of the procedure
CPT/HCPCS: 36415; 49406; 71045; 74176; 74177; 80048; 80053; 80202; 81001; 82947; 83605; 83735; 84100; 84132; 84134; 84478; 85025; 85610; 85730; 87070; 87075; 87077; 87186; 87205; 89050; 94760; 97110; 97161; 97530; J1171; J1650; J2185; J2250; J2310; J2405; J2543; J3010; J3475; J3480; J7030; J7040; Q9967